=== PATIENT | male | born 1980 | race African-American/Black ===

== ENCOUNTER 2016-07-23 13:48 | Emergency (ER) | payer MEDICARE ==
[~2016-07-23] VITALS: Ht 188 cm; Wt 106.6 kg
[2016-07-23 14:35] LABS: BASO # 0.1 x10^3/uL (0.0-0.2); BASO % 1 % (0-3); EOS % 1 % (0-3); HEMATOCRIT 42.3 % (39.0-53.0); HEMOGLOBIN 14.4 g/dL (13.0-17.5); LYMPH # 1.6 x10^3/uL (1.0-4.8); LYMPH % 15 % (24-48); MEAN CORPUSCULAR HEMOGLOBIN 33 pg (25-35); MEAN CORPUSCULAR HGB CONC 34 g/dL (31-37); MEAN CORPUSCULAR VOLUME 95 fL (79-100); MONO % 4 % (0-9); NEUT % 80 % (31-73); PLATELET COUNT 284 x10^3/uL (140-400); RED BLOOD COUNT 4.44 x10^6/uL (4.30-5.70); WHITE BLOOD COUNT 10.7 x10^3/uL (4.0-11.0)
[2016-07-23 15:04] LABS: CALCIUM 8.9 mg/dL (8.5-10.1); CREATININE 0.8 mg/dL (0.7-1.3); GFR 130.9; POTASSIUM 3.7 mmol/L (3.5-5.1)
[2016-07-23] MEDS ORDERED: ASPI325T8 PO (15:28)
[2016-07-23] MEDS ORDERED: NITROGLYCERIN SUBLINGUAL 0.4 MG BOTTLE OF 25. SL PRN (15:30)
[2016-07-23] MEDS ORDERED: ASPIRIN CHEWABLE 81 MG TABLET. PO ONE (15:30)
[2016-07-23] MEDS ORDERED: MORPHINE SULFATE 2 MG/ML DISP.SYRIN. IV PRN (15:30)
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
[2016-07-23] MEDS ORDERED: ASPIRIN 325 MG TABLET ONE (16:35)
[2016-07-23 16:40] VITALS: BP 195/99
--- NOTE | 2016-07-24 06:20 | EKG ---
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
[2016-07-24] MEDS ORDERED: METF500T4 PO (12:14)
== END 2016-07-23 16:58 | disposition left against medical advice (07) ==
LOC: ER 13:48
DX: R74.8 Abnormal levels of other serum enzymes (principal); R07.89 Other chest pain; E11.9 Type 2 diabetes mellitus without complications; I10 Essential (primary) hypertension; E78.5 Hyperlipidemia, unspecified; Z88.0 Allergy status to penicillin; Z98.890 Other specified postprocedural states; Z88.6 Allergy status to analgesic agent; Z87.891 Personal history of nicotine dependence
CPT/HCPCS: 36415; 71020; 80048; 84484; 85027; 93005; 96372; 96374; 99285; J1650; J2270

== ENCOUNTER 2016-07-24 10:28 | Inpatient (IN) | payer MEDICARE ==
[~2016-07-24] VITALS: Ht 188 cm; Wt 99.3 kg
[~2016-07-24 10:28] MED LIST: ASPI325T4 PO
[2016-07-24] MEDS ORDERED: fentaNYL PF VIAL 100 MCG/2 ML VIAL IV PRN (10:45)
[2016-07-24 10:46] LABS: BASO # 0.1 x10^3/uL (0.0-0.2); BASO % 1 % (0-3); EOS % 1 % (0-3); HEMATOCRIT 40.8 % (39.0-53.0); HEMOGLOBIN 14.2 g/dL (13.0-17.5); LYMPH # 2.4 x10^3/uL (1.0-4.8); LYMPH % 27 % (24-48); MEAN CORPUSCULAR HEMOGLOBIN 33 pg (25-35); MEAN CORPUSCULAR HGB CONC 35 g/dL (31-37); MEAN CORPUSCULAR VOLUME 94 fL (79-100); MONO % 5 % (0-9); NEUT % 66 % (31-73); PLATELET COUNT 302 x10^3/uL (140-400); RED BLOOD COUNT 4.35 x10^6/uL (4.30-5.70); WHITE BLOOD COUNT 8.9 x10^3/uL (4.0-11.0)
[2016-07-24 10:56] LABS: CALCIUM 8.6 mg/dL (8.5-10.1); CREATININE 0.9 mg/dL (0.7-1.3); GFR 114.3; MAGNESIUM 1.6 mg/dL (1.8-2.4); POTASSIUM 3.7 mmol/L (3.5-5.1)
[2016-07-24] MEDS ORDERED: LIDO:MAALOX:DONNATAL 1:1:1 15 ML SINGLE DOSE SWSW ONE (11:00)
[2016-07-24] MEDS ORDERED: ASPIRIN 325 MG TABLET PO ONE (11:00)
[2016-07-24] MEDS ORDERED: MAGNESIUM SULFATE 1GM 100 ML IV ONE (11:30)
[2016-07-24] MEDS ORDERED: NITROGLYCERIN SUBLINGUAL 0.4 MG BOTTLE OF 25. SL PRN (11:45)
[2016-07-24] MEDS ORDERED: ONDANSETRON PF 4 MG/2 ML VIAL. IV PRN (11:45)
[2016-07-24] MEDS ORDERED: ACETAMINOPHEN 325 MG TABLET. PO PRN (11:45)
--- NOTE | 2016-07-24 11:51 | EKG ---
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
--- NOTE | 2016-07-24 11:57 | ACF ---
Admission Forms Criteria CHEST PAIN Clinical Indications for Admission to Inpatient Care (Place 'X' for any and all applicable criteria): Admission is indicated for chest pain and ANY ONE of the following(1)(2)(3)(4)(5 ): [ ]I. Angina with acute coronary syndrome (Also use Myocardial Infarction or Angina guideline) [ ]II. Hemodynamic instability [ ]III. Angina needing acute intervention as indicated by ALL of the following( 11)(12): [ ]a) Unstable angina is present as indicated by angina that is ANY ONE of the following: [ ]i) New onset [ ]ii) Nocturnal [ ]iii) Prolonged at rest [ ]iv) Progressive [ ]b) Angina warrants acute intervention as indicated by ANY ONE of the following: [ ]i) Recurrent angina (e.g, not responding as previously to treatment) [ ]ii) Angina at rest or with low-level activities despite initial medical therapy [ ]iii) New or presumably new ST-segment depression on ECG [ ]iv) Signs or symptoms of heart failure (eg, dyspnea, pulmonary edema) [ ]v) New or worsening mitral regurgitation [ ]vi) Hemodynamic instability [ ]vii) Dangerous arrhythmia (eg, sustained ventricular tachycardia) [ ]viii) History of percutaneous coronary intervention within 6 months [ ]ix) History of coronary artery bypass graft surgery [ ]x) DIYA risk score of 2 or greater[A] [ ]xi) History of Diabetes(14) [ ]xii) High-risk cardiac ischemia findings on noninvasive testing (e.g, echocardiogram, treadmill testing, nuclear scan) [ ]xiii) Chronic renal insufficiency (ie, estimated GFR less than 60 mL/min/1.732m) [ ]xiv) Left ventricular ejection fraction less than 40% [ ]IV. Evidence of FL (eg, cardiac biomarkers positive, ST-segment elevation on ECG) also use Myocardial Infarction Criteria Form. [ ]V. Pulmonary edema [ ]. Respiratory distress [ ]VII. Chest pain indicative of serious diagnosis other than coronary artery disease (eg, aortic dissection) [X]VIII. Contraindications and/or Inappropriate clinical situations for Observational Care in patients with Chest Pain, when ANY ONE of the following is required: [ ]a) Patient with risk factor for pulmonary embolism, acute coronary syndrome and myocardial infarction (18) [ ]b) Patient with Pulmonary embolism require an average LOS of 4.3 days, therefore emergency department observation management is inappropriate 18,23 [ ]c) Painful condition/s in the elderly, have the highest rate of recidivism after emergency department observation management (10.8%) 20,21,22 [X]d) Elevated cardiac biomarker requires intensive and exhaustive care (19) [ ]IX. General contraindications and/or Inappropriate clinical situations for Observational Care in patients with Chest Pain, when ANY ONE of the following is required: [ ]a) Prediction of prolongation of LOS based on ANY ONE of the following may be considered as a contraindication for observational care 2, 3, 4, 5, 6, 7, 8, 9, 10, 11 [ ]i) Age > 65 yrs. [ ]ii) Patient arriving by ambulance [ ]iii) Patient with high acuity [ ]iv) Patient requiring vital sign monitoring [ ]v) Patient on IV medication [ ]b) Systolic blood pressures 180mmHg 3,12 [ ]c) Patient with altered mental status including delirium and other alteration of consciousness, (3) [ ]d) Patient whose discharge disposition will be to a halfway home or rehabilitation home should not be managed in Emergency Department Observation Unit. CMS rule requires 3 days hospital stay before such placement. 3,13 [ ]e) Patient with failure to thrive due to broad array of etiologies 3,16,17 [ ]f) Inability to ambulate 3,14 Extended stay beyond goal length of stay may be needed for (1)(28): [ ]a) Specific condition diagnosed after evaluation (eg, pulmonary embolism, aortic dissection) [ ]b) Unstable angina [ ]c) Continued suspicion of acute coronary syndrome with inability to complete needed cardiac evaluation (eg, patient clinically unable to undergo stress testing) [ ]d) Myocardial infarction (Contents from ANGINA and CHEST PAIN clinical indications for admission to inpatient care have been integrated in this form) The original [facility] content created by [employer] has been revised. The portions of the content which have been revised are identified through the use of italic text or in bold, and [facility] has neither reviewed nor approved the modified material. All other unmodified content is copyright [facility]. Please see references footnoted in the original [facility] edition 2016 Admission Criteria Met?: Yes BRAYDEN BAILEY Jul 24, 2016 11:57
[2016-07-24 12:05] VITALS: BP 129/71
[2016-07-24] MEDS ORDERED: METF500T4 PO (12:14)
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
--- NOTE | 2016-07-24 15:21 | CARD ---
APPROVED REPORT EXAM: Two-dimensional and M-mode echocardiogram with Doppler and color Doppler. Other Information Quality : Average Rhythm : NSR INDICATION Hypertension/HCVD Chest Pain 2D DIMENSIONS RVDd3.2 (2.9-3.5cm)Left Atrium(2D)3.5 (1.6-4.0cm) IVSd0.9 (0.7-1.1cm)Aortic Root(2D)2.6 (2.0-3.7cm) LVDd6.3 (3.9-5.9cm)LVOT Diameter2.3 (1.8-2.4cm) PWd0.9 (0.7-1.1cm)LVDs4.1 (2.5-4.0cm) FS (%) 32.8 %SV125.9 ml LVEF(%)60.0 (>50%) Aortic Valve AoV Peak Yvan.132.0cm/sAoV VTI28.0cm AO Peak GR.7.0mmHgLVOT Peak Yvan.82.5cm/s LVOT VTI 17.64cmAO Mean GR.4mmHg GERONIMO (VMAX)2.97jb3KDP (VTI)2.64cm2 Mitral Valve MV E Horlvymv70.7cm/sMV DECEL [id number] MV A Ygpimdpm35.6cm/sMV GNQ02pp E/A Ratio1.6MV A Bdmgfotl366mj MVA (PHT)3.55cm2 TDI E/Lateral E'6.7E/Medial E'11.8 Pulmonary Valve PV Peak Robaggqj371.3cm/sPV Peak Grad.7mmHg RVOT VTI26.6cm Tricuspid Valve TR P. Nvbszajb064lo/sRAP TMWQSKGL5dsSa TR Peak Gr.37wfEoMJNN99vgGr LEFT VENTRICLE The Left Ventricle is mildly dilated. There is normal left ventricular wall thickness. Left ventricle systolic function is low normal. The Ejection Fraction is 50-55%. There is normal LV segmental wall motion. The left ventricular diastolic function and filling is normal for age. There is no ventricula r septal defect visualized. RIGHT VENTRICLE The right ventricle is normal size. The right ventricular systolic function is normal. ATRIA The left atrium size is normal. The right atrium size is normal. The interatrial septum is intact wit h no evidence for an atrial septal defect or patent foramen ovale as noted on 2-D or Doppler imaging. AORTIC VALVE The aortic valve is normal in structure and function. The aortic valve is trileaflet. Doppler and Col or Flow revealed no significant aortic regurgitation. There is no significant aortic valvular stenosi s. MITRAL VALVE The mitral valve is normal in structure and function. There is no mitral valve stenosis. Doppler and Color Flow revealed no mitral valve regurgitation noted. TRICUSPID VALVE The tricuspid valve is normal in structure and function. Doppler and Color Flow revealed trace tricus pid regurgitation. The PA pressure was estimated at 26 mmHg. There is no tricuspid valve stenosis. PULMONIC VALVE The pulmonic valve is not well visualized. Doppler and Color Flow revealed no pulmonic valvular regur gitation. There is no pulmonic valvular stenosis. GREAT VESSELS The aortic root is normal in size. Normal pulmonary venous flow (Doppler). The IVC is normal in size and collapses >50% with inspiration. PERICARDIAL EFFUSION There is no evidence of significant pericardial effusion. Critical Notification Critical Value: No <Conclusion> Left ventricle systolic function is low normal. The Ejection Fraction is 50-55%. There is normal LV segmental wall motion.
[2016-07-24 16:41] LABS: BARBITURATES NEG (NEG); BENZODIAZEPINES NEG (NEG); CANNABINOIDS POS (NEG); COCAINE NEG (NEG); METHADONE NEG (NEG); OPIATES POS (NEG); PHENCYCLIDINE NEG (NEG)
[2016-07-24] MEDS: fentaNYL PF VIAL 100 MCG/2 ML VIAL IV PRN ×2 (16:47→21:33)
[2016-07-24 19:00] VITALS: BP 127/84
[2016-07-24 23:06] VITALS: BP 163/90
[2016-07-25 02:26] VITALS: BP 136/71
[2016-07-25] MEDS: fentaNYL PF VIAL 100 MCG/2 ML VIAL IV PRN ×3 (04:33→08:46)
[2016-07-25 05:14] LABS: CHOLESTEROL/HDL RATIO 5.5
[2016-07-25 07:00] VITALS: BP 153/83
[2016-07-25] MEDS ORDERED: REGADENOSON 0.4 MG/5 ML DISP.SYRIN. IV ONE (08:45)
[2016-07-25] MEDS ORDERED: LIDO:MAALOX:DONNATAL 1:1:1 15 ML SINGLE DOSE SWSW ONE (12:15)
[2016-07-25] MEDS: oxyCODONE/APAP 5/325 1 TAB TABLET PO PRN ×2 (12:15→13:26)
--- NOTE | 2016-07-25 12:25 | PDOC ---
CARDIO Progress Notes Date and Time Date of Service 07/25/2016 Time of Evaluation 1220 Subjective Subjective: No Chest Pain, No shortness of breath, No Palpitations, No Dizziness, Other (abdominal pain) Vitals Vitals Vital Signs Date Time Temp Pulse Resp B/P (MAP) Pulse Ox O2 Delivery O2 Flow Rate FiO2 07/25/16 12:15 96 Room Air 07/25/16 07:00 97.5 63 17 153/83 (106) 97.5 Weight Weight [ ] Input and Output Intake and Output Intake and Output 07/25/16 07:00 Intake Total 680 ml Output Total 800 ml Balance -120 ml Intake Oral 680 ml Output Urine Total 800 ml Laboratory Labs Laboratory Tests Test 07/24/16 16:00 07/24/16 16:45 07/24/16 17:16 07/24/16 20:36 Urine Opiates Screen Pos (NEG) Urine Methadone Screen Neg (NEG) Urine Barbiturates Neg (NEG) Urine Phencyclidine Screen Neg (NEG) Urine Amphetamine/Methamphetamine Neg (NEG) Urine Benzodiazepines Screen Neg (NEG) Urine Cocaine Screen Neg (NEG) Urine Cannabinoids Screen Pos (NEG) Urine Ethyl Alcohol Neg (NEG) Troponin I Quantitative 0.077 ng/mL (0.000-0.055) Glucose (Fingerstick) 150 mg/dL (70-99) 210 mg/dL (70-99) Test 07/24/16 22:45 07/25/16 04:00 07/25/16 07:41 07/25/16 12:01 Troponin I Quantitative 0.082 ng/mL (0.000-0.055) Triglycerides Level 98 mg/dL (0-150) Cholesterol Level 177 mg/dL (0-200) LDL Cholesterol, Calculated 125 mg/dL (0-100) VLDL Cholesterol, Calculated 20 mg/dL (0-40) Non-HDL Cholesterol Calculated 145 mg/dL (0-129) HDL Cholesterol 32 mg/dL (40-60) Cholesterol/HDL Ratio 5.5 Glucose (Fingerstick) 162 mg/dL (70-99) 200 mg/dL (70-99) Physical Exam HEENT: Neck Supple W Full Motion Chest: Symmetric LUNGS: Clear to Auscultation Heart: S1S2, RRR Extremities: No Edema Neurology: alert, oriented, follow commands Diagnostic Tests Echocardiogram: Normal LVEF Assessment Assessment 1. chest pain somewhat atypical in presentation - starts suprapubic and moves upward EKG and troponin levels not consistent with ACS MPI in progress - if non-ischemic, may discharge suspect GI etiology 2. HTN labile consider low dose ACEI as also DM 3. DM, II, poorly controlled per primary service 4. tobacco abuse 5. HLD LDLs = 125 recommend dietary changes and improved control of DM repeat FLP in 3 - 6 months and consider statin therapy Plan Plan ADDENDUM @ 1443: ABNORMAL MPI DISCUSSED WITH PATIENT AND PRIMARY INVESTMENT SPECIALIST WHO RECOMMENDED CARDIAC CATH IN A.M. 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
--- NOTE | 2016-07-25 12:54 | PDOC ---
PROGRESS NOTES Chief Complaint Chief Complaint 1. Epigastric pain 2. HTN taken off meds due to lightheadedness monitor 3. DM, II, poorly controlled 4. tobacco abuse - 0.5 ppday 5. hypomagnesemia History of Present Illness History of Present Illness It is actually infraumbilical pain then motions movement upwards to epigastric area, describing as burning sensation Hx PUD in family Pt does smoke, denies etoh Cards is doing and echo and mPI PEr family at bedside, he has been having this for the longest time, last time was here not too long ago, left AMA Pt curling up a bit after eating lunch, fentanyl not helping pain I did order GI cocktail x 1 and claims no resolve ALready on PPI oral PLAN: COnsulT GI Tums tID COnt PPI I did order GI cocktail Dw family and RN Echo and mPI per cards Vitals Vitals Vital Signs Date Time Temp Pulse Resp B/P (MAP) Pulse Ox O2 Delivery O2 Flow Rate FiO2 07/25/16 12:15 96 Room Air 07/25/16 07:00 97.5 63 17 153/83 (106) 97.5 Physical Exam General: Alert, Oriented X3, Cooperative, No acute distress Heart: Regular rate, Normal S1, Normal S2, No murmurs, Other (no carotid bruits ; Tele: SR) Abdomen: Normal bowel sounds, Soft Extremities: No edema, Normal pulses Skin: No rashes Labs LABS Laboratory Tests Test 07/24/16 16:00 07/24/16 16:45 07/24/16 17:16 07/24/16 20:36 Urine Opiates Screen Pos (NEG) Urine Methadone Screen Neg (NEG) Urine Barbiturates Neg (NEG) Urine Phencyclidine Screen Neg (NEG) Urine Amphetamine/Methamphetamine Neg (NEG) Urine Benzodiazepines Screen Neg (NEG) Urine Cocaine Screen Neg (NEG) Urine Cannabinoids Screen Pos (NEG) Urine Ethyl Alcohol Neg (NEG) Troponin I Quantitative 0.077 ng/mL (0.000-0.055) Glucose (Fingerstick) 150 mg/dL (70-99) 210 mg/dL (70-99) Test 07/24/16 22:45 07/25/16 04:00 07/25/16 07:41 07/25/16 12:01 Troponin I Quantitative 0.082 ng/mL (0.000-0.055) Triglycerides Level 98 mg/dL (0-150) Cholesterol Level 177 mg/dL (0-200) LDL Cholesterol, Calculated 125 mg/dL (0-100) VLDL Cholesterol, Calculated 20 mg/dL (0-40) Non-HDL Cholesterol Calculated 145 mg/dL (0-129) HDL Cholesterol 32 mg/dL (40-60) Cholesterol/HDL Ratio 5.5 Glucose (Fingerstick) 162 mg/dL (70-99) 200 mg/dL (70-99) Review of Systems Review of Systems abd pain, no emeiss, no n.v.d, no cp Assessment and Plan Assessmemt and Plan Problems Medical Problems: (1) Elevated troponin Status: Acute Problems: Comment Review of Relevant I have reviewed the following items shelli (where applicable) has been applied. Labs Laboratory Tests Test 07/24/16 10:40 07/24/16 16:00 07/24/16 16:45 07/24/16 17:16 White Blood Count 8.9 x10^3/uL (4.0-11.0) Red Blood Count 4.35 x10^6/uL (4.30-5.70) Hemoglobin 14.2 g/dL (13.0-17.5) Hematocrit 40.8 % (39.0-53.0) Mean Corpuscular Volume 94 fL (79-100) Mean Corpuscular Hemoglobin 33 pg (25-35) Mean Corpuscular Hemoglobin Concent 35 g/dL (31-37) Red Cell Distribution Width 14.0 % (11.5-14.5) Platelet Count 302 x10^3/uL (140-400) Neutrophils (%) (Auto) 66 % (31-73) Lymphocytes (%) (Auto) 27 % (24-48) Monocytes (%) (Auto) 5 % (0-9) Eosinophils (%) (Auto) 1 % (0-3) Basophils (%) (Auto) 1 % (0-3) Neutrophils # (Auto) 5.9 x10^3uL (1.8-7.7) Lymphocytes # (Auto) 2.4 x10^3/uL (1.0-4.8) Monocytes # (Auto) 0.5 x10^3/uL (0.0-1.1) Eosinophils # (Auto) 0.1 x10^3/uL (0.0-0.7) Basophils # (Auto) 0.1 x10^3/uL (0.0-0.2) Sodium Level 138 mmol/L (136-145) Potassium Level 3.7 mmol/L (3.5-5.1) Chloride Level 104 mmol/L (98-107) Carbon Dioxide Level 29 mmol/L (21-32) Anion Gap 5 (6-14) Blood Urea Nitrogen 6 mg/dL (8-26) Creatinine 0.9 mg/dL (0.7-1.3) Estimated GFR (Cockcroft-Gault) 114.3 Glucose Level 265 mg/dL (70-99) Calcium Level 8.6 mg/dL (8.5-10.1) Magnesium Level 1.6 mg/dL (1.8-2.4) Troponin I Quantitative 0.084 ng/mL (0.000-0.055) 0.077 ng/mL (0.000-0.055) GP-Nwy-E-Type Natriuretic Peptide 86 pg/mL (0-124) Thyroid Stimulating Hormone (TSH) 0.369 uIU/mL (0.358-3.74) Urine Opiates Screen Pos (NEG) Urine Methadone Screen Neg (NEG) Urine Barbiturates Neg (NEG) Urine Phencyclidine Screen Neg (NEG) Urine Amphetamine/Methamphetamine Neg (NEG) Urine Benzodiazepines Screen Neg (NEG) Urine Cocaine Screen Neg (NEG) Urine Cannabinoids Screen Pos (NEG) Urine Ethyl Alcohol Neg (NEG) Glucose (Fingerstick) 150 mg/dL (70-99) Test 07/24/16 20:36 07/24/16 22:45 07/25/16 04:00 07/25/16 07:41 Glucose (Fingerstick) 210 mg/dL (70-99) 162 mg/dL (70-99) Troponin I Quantitative 0.082 ng/mL (0.000-0.055) Triglycerides Level 98 mg/dL (0-150) Cholesterol Level 177 mg/dL (0-200) LDL Cholesterol, Calculated 125 mg/dL (0-100) VLDL Cholesterol, Calculated 20 mg/dL (0-40) Non-HDL Cholesterol Calculated 145 mg/dL (0-129) HDL Cholesterol 32 mg/dL (40-60) Cholesterol/HDL Ratio 5.5 Test 07/25/16 12:01 Glucose (Fingerstick) 200 mg/dL (70-99) Laboratory Tests Test 07/24/16 16:00 07/24/16 16:45 07/24/16 17:16 07/24/16 20:36 Urine Opiates Screen Pos (NEG) Urine Methadone Screen Neg (NEG) Urine Barbiturates Neg (NEG) Urine Phencyclidine Screen Neg (NEG) Urine Amphetamine/Methamphetamine Neg (NEG) Urine Benzodiazepines Screen Neg (NEG) Urine Cocaine Screen Neg (NEG) Urine Cannabinoids Screen Pos (NEG) Urine Ethyl Alcohol Neg (NEG) Troponin I Quantitative 0.077 ng/mL (0.000-0.055) Glucose (Fingerstick) 150 mg/dL (70-99) 210 mg/dL (70-99) Test 07/24/16 22:45 07/25/16 04:00 07/25/16 07:41 07/25/16 12:01 Troponin I Quantitative 0.082 ng/mL (0.000-0.055) Triglycerides Level 98 mg/dL (0-150) Cholesterol Level 177 mg/dL (0-200) LDL Cholesterol, Calculated 125 mg/dL (0-100) VLDL Cholesterol, Calculated 20 mg/dL (0-40) Non-HDL Cholesterol Calculated 145 mg/dL (0-129) HDL Cholesterol 32 mg/dL (40-60) Cholesterol/HDL Ratio 5.5 Glucose (Fingerstick) 162 mg/dL (70-99) 200 mg/dL (70-99) Medications Current Medications Fentanyl Citrate (Fentanyl 2ml Vial) 50 mcg PRN Q15MIN PRN IV pain for 3 doses Last administered on 07/24/16 11:11; Start 07/24/16 at 10:45 Aspirin (Brittny Aspirin) 325 mg 1X ONCE PO Last administered on 07/24/16 11:10 ; Start 07/24/16 at 11:00; Stop 07/24/16 at 11:01; Status DC Multi-Ingredient Mouthwash/Gargle (Gi Cocktail Single Dose) 15 ml 1X ONCE SWSW Last administered on 07/24/16 11:10; Start 07/24/16 at 11:00; Stop 07/24/16 at 11:01; Status DC Enoxaparin Sodium (Lovenox 100mg Syringe) 100 mg 1X ONCE SQ Last administered on 07/24/16 11:30; Start 07/24/16 at 11:15; Stop 07/24/16 at 11:16; Status DC Magnesium Sulfate/ Dextrose 100 ml @ 100 mls/hr 1X ONCE IV Last administered on 07/24/16 11:30; Start 07/24/16 at 11:30; Stop 07/24/16 at 12:29; Status DC Ondansetron HCl (Zofran) 4 mg PRN Q8HRS PRN IV NAUSEA/VOMITING; Start 07/24/16 at 11:45; Stop 07/25/16 at 11:44; Status DC Fentanyl Citrate (Fentanyl 2ml Vial) 50 mcg PRN Q2HR PRN IV PAIN Last administered on 07/25/16 08:46; Start 07/24/16 at 11:45; Stop 07/25/16 at 11:44; Status DC Acetaminophen (Tylenol) 650 mg PRN Q4HRS PRN PO FEVER; Start 07/24/16 at 11:45; Stop 07/25/16 at 11:44; Status DC Nitroglycerin (Nitrostat) 0.4 mg PRN Q5MIN PRN SL CHEST PAIN; Start 07/24/16 at 11:45; Stop 07/25/16 at 11:44; Status DC Regadenoson (Lexiscan) 0.4 mg 1X ONCE IV Last administered on 07/25/16 09:54; Start 07/25/16 at 08:45; Stop 07/25/16 at 08:47; Status DC Oxycodone/ Acetaminophen (Percocet 5/325) 1 tab PRN Q6HRS PRN PO PAIN Last administered on 07/25/16 12:15; Start 07/25/16 at 12:15 Multi-Ingredient Mouthwash/Gargle (Gi Cocktail Single Dose) 15 ml 1X ONCE SWSW Last administered on 07/25/16 12:14; Start 07/25/16 at 12:15; Stop 07/25/16 at 12:16; Status DC Pantoprazole Sodium (Protonix) 40 mg DAILYAC PO Last administered on 07/25/16 12:15; Start 07/25/16 at 13:00 Active Scripts Active Reported Metformin Hcl 500 Mg Tablet 500 Mg PO BIDWMEALS Vitals/I & O Vital Sign - Last 24 Hours 07/24/16 07/24/16 07/24/16 07/24/16 16:47 19:00 20:00 21:33 Temp 98.0 98.0 Pulse 87 Resp 18 B/P (MAP) 127/84 (98) Pulse Ox 97 96 O2 Delivery Room Air Room Air Room Air Room Air 07/24/16 07/25/16 07/25/16 07/25/16 23:06 02:26 04:33 06:31 Temp 98.1 98.0 98.1 98.0 Pulse 60 50 Resp 20 17 B/P (MAP) 163/90 (114) 136/71 (92) Pulse Ox 96 96 96 96 O2 Delivery Room Air Room Air Room Air Room Air 07/25/16 07/25/16 07/25/16 07/25/16 07:00 07:01 08:00 08:46 Temp 97.5 97.5 Pulse 63 Resp 17 B/P (MAP) 153/83 (106) Pulse Ox 99 96 O2 Delivery Room Air Room Air Room Air 07/25/16 07/25/16 09:16 12:15 Pulse Ox 96 O2 Delivery Room Air Room Air Intake and Output 07/24/16 07/24/16 07/25/16 15:00 23:00 07:00 Intake Total 240 ml 240 ml 200 ml Output Total 300 ml 500 ml Balance 240 ml -60 ml -300 ml HOMER GALLO MD Jul 25, 2016 12:54
[2016-07-25] MEDS ORDERED: CALCIUM CARBONATE 500 MG TAB.CHEW PO PRN (13:00)
[2016-07-25] MEDS ORDERED: fentaNYL PF VIAL 100 MCG/2 ML VIAL IV PRN (13:00)
[2016-07-25] MEDS ORDERED: PANTOPRAZOLE 40 MG TABLET.DR. PO SCH (13:00)
[2016-07-25] MEDS ORDERED: ONDANSETRON PF 4 MG/2 ML VIAL. IV PRN (13:00)
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
--- NOTE | 2016-07-25 14:13 | RAD ---
APPROVED REPORT Test Type: Pharmacological Stress Nurse/Tech: Lorie Carter R.N. Test Indications: chest pain Cardiac History: Hypertension, High cholesterol, Diabetes Medications: See Electronic Medical Record Medical History: See Electronic Medical Record Resting ECG: S. katherine Resting Heart Rate: 54 bpm Resting Blood Pressure: 174/92mmHg Pretest Chest Pain: No chest pain Nurse/Tech Notes S1S2, lungs sound clear Consent: The procedure was explained to the patient in lay terms. Informed consent was witnessed. Toy eout was entered into Nitro. History and Stress Test performed by Lorie Carter R.N. Pharm. Details Pharmacologic stress testing was performed using 0.4mg per 5ml of regadenoson given intravenously ove r 7-10 seconds. Stress Symptoms Dyspnea POST EXERCISE Reason for Termination: Infusion complete Max HR: 108 bpm Max Blood Pressure: 158/74mmHg Blood Pressure response to exercise: Normal blood pressure response during stress. Chest Pain: No. Arrhythmia: No. ST Change: No. INTERPRETATION Stress EKG Conclusion: Baseline EKG showed sinus rhythm. No ischemic changes at peak stress. No arr hythmias. Imaging Protocol IMAGE PROTOCOL: Rest Tc-99m/stress Tc-99m 1 day Rest: Stress: Viability: Radiopharm.Tc99m FhguvehosTa85w Sestamibi Pfko27fNa 32mCi Img Date 07/25/2016 07/25/2016 Inj-Img Dyia95fsl. 60min. Rest Admin Site:IV - Left AntecubitalAdministrator:DHARMESH Pereira, ARRT (R)(N) Stress Admin Site: IV - Left AntecubitalAdministrator: Bacilio Rollins, RT (R)(N) STRESS DATA End Diast. Vol.228.0mlAv. Heart Rate58.0bpm End Syst. Vol.137.0mlCO Index BSA0.0L/min Myocardial Etdx317.0gEject. Atsedjpn02.0% Stress Rates Pk. Fill Rate1.49EDV/secLVtime Pk. Fill 147.98msec Pk. Empty Rate2.02ESV/secLVtime Pk. Uzkrl411.34msec 1/3 Pk. Fill1.01EDV/sec Stress Scores Regional WT1.00Summed WT15.00 Regional WM0.00Summed WM9.00 LV Perfusion Scintigraphic images showed small reversible defect involving the inferoapical wall consistent with i schemia. Wall Motion Mild to moderate global left ventricle systolic dysfunction with ejection fraction calculated at 40%. LV Perf. Quant 17 Seg. SSS4.00 17 Seg. SRS1.00 17 Seg. SDS4.00 Stress Defect Extent (% LAD)1.90Rest Defect Extent (% LAD)6.30Rev. Defect Extent (% LAD)1.90 Stress Defect Extent (% LCX) 0.00Rest Defect Extent (% LCX)0.00Rev. Defect Extent (% LCX)0.00 Stress Defect Extent (% RCA)22.20Rest Defect Extent (% RCA)0.00Rev. Defect Extent (% RCA)15.60 Stress Defect Extent (% DANUTA)7.20Rest Defect Extent (% DANUTA)2.20Rev. Defect Extent (% DANUTA)5.70 Conclusion 1. Regadenoson cardioisotope stress test showed small amount of inferoapical wall ischemia. 2. Mild to moderate global left ventricle systolic dysfunction with ejection fraction calculated at 4 0%. 3. Intermediate risk for cardiac events.
[2016-07-25] MEDS ORDERED: METOPROLOL SUCC 24HR ER 25 MG TAB.ER.24H. PO SCH (15:00)
[2016-07-25] MEDS ORDERED: ASPIRIN CHEWABLE 81 MG TABLET. PO SCH (15:00)
[2016-07-25 15:07] VITALS: BP 151/84
[2016-07-25] MEDS ORDERED: ATORVASTATIN CALCIUM 40 MG TABLET. PO SCH (21:00)
== END 2016-07-25 16:40 | disposition left against medical advice (07) | DRG 392 ==
LOC: ER 10:28 → 2 SOUTH 11:15
PROVIDERS: ADMIT Internal Medicine; ATTEND Internal Medicine
DX: K21.9 Gastro-esophageal reflux disease without esophagitis (principal); E78.00 Pure hypercholesterolemia, unspecified; E78.5 Hyperlipidemia, unspecified; F17.210 Nicotine dependence, cigarettes, uncomplicated; I10 Essential (primary) hypertension; R07.2 Precordial pain; E83.42 Hypomagnesemia; Z53.21 Procedure and treatment not carried out due to patient leaving prior to being seen by health care provider; E11.65 Type 2 diabetes mellitus with hyperglycemia; Z82.49 Family history of ischemic heart disease and other diseases of the circulatory system; Z91.19 Patient's noncompliance with other medical treatment and regimen; Z88.0 Allergy status to penicillin; Z88.6 Allergy status to analgesic agent; Z79.899 Other long term (current) drug therapy; Z71.6 Tobacco abuse counseling
CPT/HCPCS: 36415; 78452; 80048; 80061; 82962; 83735; 83880; 84443; 84484; 85027; 93005; 93017; 93306; 96372; 96374; 96375; 96376; A9500; G0481; J1650; J2785; J3010; J3475; 99285-25

== ENCOUNTER 2016-08-07 23:06 | Emergency (ER) | payer MEDICARE ==
[~2016-08-07] VITALS: Ht 182.9 cm; Wt 108.9 kg
[~2016-08-07 23:06] MED LIST changes: -ASPI325T4 PO; +ASPI325T8 PO; +METF500T4 PO
[2016-08-07 23:21] VITALS: BP 155/92
[2016-08-07 23:42] LABS: BASO # 0.1 x10^3/uL (0.0-0.2); BASO % 1 % (0-3); EOS % 2 % (0-3); HEMATOCRIT 43.2 % (39.0-53.0); HEMOGLOBIN 14.6 g/dL (13.0-17.5); LYMPH # 3.1 x10^3/uL (1.0-4.8); LYMPH % 32 % (24-48); MEAN CORPUSCULAR HEMOGLOBIN 33 pg (25-35); MEAN CORPUSCULAR HGB CONC 34 g/dL (31-37); MEAN CORPUSCULAR VOLUME 96 fL (79-100); MONO % 8 % (0-9); NEUT % 57 % (31-73); PLATELET COUNT 291 x10^3/uL (140-400); RED BLOOD COUNT 4.51 x10^6/uL (4.30-5.70); RED CELL DISTRIBUTION WIDTH 13.7 % (11.5-14.5); WHITE BLOOD COUNT 9.6 x10^3/uL (4.0-11.0)
[2016-08-07 23:53] LABS: CALCIUM 8.6 mg/dL (8.5-10.1); CREATININE 0.9 mg/dL (0.7-1.3); GFR 114.3; POTASSIUM 3.7 mmol/L (3.5-5.1)
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
[2016-08-07 23:59] LABS: ALBUMIN 2.6 g/dL (3.4-5.0); ALBUMIN/GLOBULIN RATIO 0.6 (1.0-1.7); TOTAL BILIRUBIN 0.4 mg/dL (0.2-1.0); TOTAL PROTEIN 7.1 g/dL (6.4-8.2)
[2016-08-08] MEDS ORDERED: DICYCLOMINE 20 MG/2 ML AMPUL. IM ONE (00:15)
[2016-08-08] MEDS ORDERED: PANTOPRAZOLE IV PUSH 40 MG VIAL. IVP ONE (00:15)
[2016-08-08] MEDS ORDERED: IOHEXOL 300 MG/ML 75 ML VIAL IV ONE (00:30)
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
[2016-08-08] MEDS ORDERED: DICY10CA53 PO (01:08)
[2016-08-08] MEDS ORDERED: PANT40TA3 PO (01:08)
--- NOTE | 2016-08-08 07:19 | EKG ---
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
== END 2016-08-08 01:13 | disposition home or self-care (01) ==
LOC: ER 23:06
DX: R10.84 Generalized abdominal pain (principal); R10.13 Epigastric pain; E11.9 Type 2 diabetes mellitus without complications; E78.00 Pure hypercholesterolemia, unspecified; I10 Essential (primary) hypertension; Z98.890 Other specified postprocedural states; Z88.0 Allergy status to penicillin; Z88.6 Allergy status to analgesic agent; Z87.891 Personal history of nicotine dependence
CPT/HCPCS: 36415; 74177; 80053; 84484; 85027; 93005; 96372; 96374; 99285; C9113; J0500; Q9967

== ENCOUNTER 2016-11-28 23:29 | Emergency (ER) | payer MEDICARE ==
[~2016-11-28] VITALS: Ht 188 cm; Wt 92.5 kg
[~2016-11-28 23:29] MED LIST changes: +DICY10CA53 PO; +PANT40TA3 PO
[2016-11-28 23:35] VITALS: BP 174/83
[2016-11-28] MEDS ORDERED: CLIN300C8 PO (23:54)
[2016-11-28] MEDS ORDERED: TRAM50TA PO (23:54)
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
[2016-11-29] MEDS ORDERED: traMADol 50 MG TABLET PO ONE
== END 2016-11-28 23:50 | disposition home or self-care (01) ==
LOC: ER 23:29
DX: K04.7 Periapical abscess without sinus (principal); E11.9 Type 2 diabetes mellitus without complications; E78.00 Pure hypercholesterolemia, unspecified; I10 Essential (primary) hypertension; Z88.0 Allergy status to penicillin; Z88.8 Allergy status to other drugs, medicaments and biological substances
CPT/HCPCS: 99283

== ENCOUNTER 2017-05-17 13:24 | Inpatient (IN) | payer MEDICARE ==
[2017-05-17 14:29] LABS: ADD MAN DIFF? NO
[2017-05-17] MEDS: IV NORMAL SALINE 1000ML BAG 1,000 ML IV ×2 (14:32→17:30)
[2017-05-17] MEDS: ONDANSETRON PF 4 MG/2 ML VIAL. IV (14:32)
[2017-05-17] MEDS: LIDO:MAALOX:DONNATAL 1:1:1 15 ML SINGLE DOSE SWSW (14:32)
[2017-05-17] MEDS: MORPHINE SULFATE 4 MG/ML DISP.SYRIN. IV/SQ ×4 (14:33→22:07)
[2017-05-17 14:35] LABS: BASO # 0.1 x10^3/uL (0.0-0.2); BASO % 1 % (0-3); EOS # 0.1 x10^3/uL (0.0-0.7); EOS % 1 % (0-3); HEMATOCRIT 45.3 % (39.0-53.0); HEMOGLOBIN 15.6 g/dL (13.0-17.5); LYMPH # 2.1 x10^3/uL (1.0-4.8); LYMPH % 20 % (24-48); MEAN CORPUSCULAR HEMOGLOBIN 33 pg (25-35); MEAN CORPUSCULAR HGB CONC 35 g/dL (31-37); MEAN CORPUSCULAR VOLUME 95 fL (79-100); MONO # 0.4 x10^3/uL (0.0-1.1); MONO % 4 % (0-9); NEUT # 7.8 x10^3uL (1.8-7.7); NEUT % 74 % (31-73); PLATELET COUNT 342 x10^3/uL (140-400); RED BLOOD COUNT 4.74 x10^6/uL (4.30-5.70); RED CELL DISTRIBUTION WIDTH 13.9 % (11.5-14.5); WHITE BLOOD COUNT 10.5 x10^3/uL (4.0-11.0)
[2017-05-17 14:38] LABS: BILIRUBIN,URINE SMALL (NEG); CLARITY,URINE CLEAR; COLOR,URINE AMBER; GLUCOSE,URINE 250 mg/dL (NEG); NITRITE,URINE NEGATIVE (NEG); PROTEIN,URINE >=300 mg/dL (NEG-TRACE); UROBILINOGEN,URINE 0.2 mg/dL (0.2 mg/dL)
[2017-05-17 14:48] LABS: ANION GAP 7 (6-14); BLOOD UREA NITROGEN 5 mg/dL (8-26); BUN/CREATININE RATIO 6 (6-20); CALCIUM 8.9 mg/dL (8.5-10.1); CARBON DIOXIDE 30 mmol/L (21-32); CHLORIDE 104 mmol/L (98-107); CREATININE 0.8 mg/dL (0.7-1.3); GFR 130.9; GLUCOSE 211 mg/dL (70-99); POTASSIUM 3.6 mmol/L (3.5-5.1); SODIUM 141 mmol/L (136-145)
[2017-05-17 14:54] LABS: ALBUMIN 2.6 g/dL (3.4-5.0); ALBUMIN/GLOBULIN RATIO 0.6 (1.0-1.7); ALK PHOS 85 U/L (46-116); ALT (SGPT) 16 U/L (16-63); AST (SGOT) 10 U/L (15-37); LIPASE 207 U/L (73-393); TOTAL BILIRUBIN 0.4 mg/dL (0.2-1.0); TOTAL PROTEIN 7.2 g/dL (6.4-8.2)
[2017-05-17 14:59] LABS: BACTERIA,URINE FEW /HPF (0-FEW); HYALINE CASTS, URINE MODERATE /HPF; WBC,URINE 20-40 /HPF (0-4)
[2017-05-17 15:02] LABS: TROPONINI 0.095 ng/mL (0.000-0.055)
[2017-05-17 15:26] LABS: PLT ESTIMATE ADEQUATE (ADEQUATE)
[2017-05-17] MEDS: IOHEXOL 300 MG/ML 100ML VIAL. IV (15:52)
[2017-05-17] MEDS ORDERED: ACETAMINOPHEN 325 MG TABLET. PO (17:15)
[2017-05-17] MEDS ORDERED: ONDANSETRON PF 4 MG/2 ML VIAL. IV (17:15)
[2017-05-17] MEDS: ASPIRIN 325 MG TABLET PO (18:40)
[2017-05-17 20:22] LABS: POC GLUCOSE 149 mg/dL (70-99)
[2017-05-17 23:08] LABS: TROPONINI 0.099 ng/mL (0.000-0.055)
[2017-05-18] MEDS: MORPHINE SULFATE 4 MG/ML DISP.SYRIN. IV ×12 (00:11→23:47)
[2017-05-18 01:19] LABS: TROPONINI 0.092 ng/mL (0.000-0.055)
[2017-05-18] MEDS: IV NORMAL SALINE 1000ML BAG 1,000 ML IV ×2 (01:30→09:30)
[2017-05-18 04:40] LABS: ADD MAN DIFF? NO
[2017-05-18 05:35] LABS: BASO # 0.1 x10^3/uL (0.0-0.2); BASO % 1 % (0-3); EOS # 0.1 x10^3/uL (0.0-0.7); EOS % 1 % (0-3); HEMATOCRIT 42.8 % (39.0-53.0); HEMOGLOBIN 14.1 g/dL (13.0-17.5); LYMPH # 3.2 x10^3/uL (1.0-4.8); LYMPH % 32 % (24-48); MEAN CORPUSCULAR HEMOGLOBIN 32 pg (25-35); MEAN CORPUSCULAR HGB CONC 33 g/dL (31-37); MEAN CORPUSCULAR VOLUME 97 fL (79-100); MONO # 0.5 x10^3/uL (0.0-1.1); MONO % 5 % (0-9); NEUT # 6.1 x10^3uL (1.8-7.7); NEUT % 61 % (31-73); PLATELET COUNT 283 x10^3/uL (140-400); RED BLOOD COUNT 4.42 x10^6/uL (4.30-5.70); RED CELL DISTRIBUTION WIDTH 14.5 % (11.5-14.5); WHITE BLOOD COUNT 9.9 x10^3/uL (4.0-11.0)
[2017-05-18 07:18] LABS: ANION GAP 4 (6-14); BLOOD UREA NITROGEN 5 mg/dL (8-26); CALCIUM 8.7 mg/dL (8.5-10.1); CARBON DIOXIDE 30 mmol/L (21-32); CHLORIDE 106 mmol/L (98-107); CREATININE 0.8 mg/dL (0.7-1.3); GFR 130.9; GLUCOSE 189 mg/dL (70-99); SODIUM 140 mmol/L (136-145)
[2017-05-18 08:12] LABS: POC GLUCOSE 164 mg/dL (70-99)
[2017-05-18 11:29] LABS: POC GLUCOSE 155 mg/dL (70-99)
[2017-05-18] MEDS: PREGABALIN 50 MG CAPSULE PO ×2 (16:44→21:53)
[2017-05-18] MEDS: LISINOPRIL 5 MG TABLET. PO (16:45)
[2017-05-18] MEDS: PANTOPRAZOLE 40 MG TABLET.DR. PO (16:45)
[2017-05-18] MEDS: metFORMIN 500 MG TABLET PO (16:45)
[2017-05-18 17:04] LABS: POC GLUCOSE 153 mg/dL (70-99)
[2017-05-18 21:12] LABS: POC GLUCOSE 177 mg/dL (70-99)
[2017-05-19] MEDS: MORPHINE SULFATE 4 MG/ML DISP.SYRIN. IV ×7 (02:40→22:45)
[2017-05-19] MEDS ORDERED: MORPHINE SULFATE 2 MG/ML DISP.SYRIN. IV (07:00)
[2017-05-19] MEDS ORDERED: fentaNYL PF VIAL 100 MCG/2 ML VIAL IV (07:00)
[2017-05-19] MEDS ORDERED: ONDANSETRON PF 4 MG/2 ML VIAL. IV ×2 (07:00→15:15)
[2017-05-19] MEDS ORDERED: LIDOCAINE 1% PF 2 ML VIAL. ID (07:00)
[2017-05-19] MEDS: PANTOPRAZOLE 40 MG TABLET.DR. PO (07:30)
[2017-05-19] MEDS: metFORMIN 500 MG TABLET PO ×2 (08:00→18:08)
[2017-05-19] MEDS ORDERED: ceFAZolin 2GM PREMIX 2 GM/50 ML BAG IV (08:00)
[2017-05-19 08:22] LABS: POC GLUCOSE 112 mg/dL (70-99)
[2017-05-19] MEDS: PREGABALIN 50 MG CAPSULE PO ×3 (08:49→20:44)
[2017-05-19] MEDS: LISINOPRIL 5 MG TABLET. PO (08:49)
[2017-05-19] MEDS ORDERED: SURGICEL HEMOSTAT 2X3 EACH. (11:48)
[2017-05-19 11:58] LABS: POC GLUCOSE 135 mg/dL (70-99)
[2017-05-19] MEDS: IV RINGERS,LACTATED 1000ML 1,000 ML IV ×2 (12:14→16:56)
[2017-05-19] MEDS ORDERED: PROPOFOL 0 ML IV (12:43)
[2017-05-19] MEDS ORDERED: LIDOCAINE 1% PF 5 ML VIAL. (12:43)
[2017-05-19] MEDS ORDERED: MIDAZOLAM HCL/PF 2 MG/2 ML VIAL. (12:43)
[2017-05-19] MEDS ORDERED: DEXAMETHASONE SOD PHOS 20 MG/5 ML VIAL. (12:43)
[2017-05-19] MEDS ORDERED: fentaNYL PF VIAL 100 MCG/2 ML VIAL (12:43)
[2017-05-19] MEDS ORDERED: ROCURONIUM 50 MG/5 ML VIAL. (12:44)
[2017-05-19] MEDS: BISACODYL 10 MG SUPP.RECT. (13:33)
[2017-05-19] MEDS: BUPIVACAINE-EPI 0.25%-1:200000 50 ML VIAL. (13:33)
[2017-05-19] MEDS: IOHEXOL 300 MG/ML 100ML VIAL. (13:33)
[2017-05-19] MEDS ORDERED: KETAMINE HCL 500 MG/10 ML VIAL. (13:42)
[2017-05-19] MEDS ORDERED: MORPHINE SULFATE 10 MG/ML VIAL. (14:18)
[2017-05-19] MEDS ORDERED: GLYCOPYRROLATE 1 MG/5 ML VIAL. (14:42)
[2017-05-19] MEDS ORDERED: SEVOFLURANE 61 TO 120 MINUTES. IH (14:53)
[2017-05-19] MEDS ORDERED: PROPOFOL 20 ML IV (14:54)
[2017-05-19] MEDS ORDERED: ONDANSETRON PF 4 MG/2 ML VIAL. (14:55)
[2017-05-19] MEDS ORDERED: MORPHINE SULFATE 4 MG/ML DISP.SYRIN. IV (15:15)
[2017-05-19] MEDS ORDERED: 0.9 % SODIUM CHLORIDE 10 ML DISP.SYRIN. IV (15:15)
[2017-05-19 15:42] LABS: POC GLUCOSE 188 mg/dL (70-99)
[2017-05-19] MEDS: PROCHLORPERAZINE 10 MG/2 ML VIAL. IV ×2 (15:46→16:08)
[2017-05-19] MEDS: fentaNYL PF VIAL 100 MCG/2 ML VIAL IV ×2 (15:47→16:08)
[2017-05-19] MEDS: hydrALAZINE 20 MG/ML VIAL. IVP (16:55)
[2017-05-19 17:13] LABS: POC GLUCOSE 188 mg/dL (70-99)
[2017-05-19] MEDS: HYDROcodone/APAP 5/325MG 1 TAB TABLET PO ×2 (18:09→20:44)
[2017-05-19] MEDS: DOCUSATE SODIUM 100 MG CAPSULE. PO (20:44)
[2017-05-19 21:03] LABS: POC GLUCOSE 227 mg/dL (70-99)
[2017-05-20] MEDS: HYDROcodone/APAP 5/325MG 1 TAB TABLET PO ×5 (00:42→21:20)
[2017-05-20] MEDS: MORPHINE SULFATE 4 MG/ML DISP.SYRIN. IV ×6 (00:43→19:43)
[2017-05-20] MEDS: IV RINGERS,LACTATED 1000ML 1,000 ML IV ×2 (03:25→11:08)
[2017-05-20 04:31] LABS: ADD MAN DIFF? NO
[2017-05-20 04:36] LABS: BASO % 0 % (0-3); EOS % 0 % (0-3); HEMOGLOBIN 13.8 g/dL (13.0-17.5); LYMPH # 1.4 x10^3/uL (1.0-4.8); LYMPH % 9 % (24-48); MEAN CORPUSCULAR HEMOGLOBIN 32 pg (25-35); MEAN CORPUSCULAR HGB CONC 34 g/dL (31-37); MEAN CORPUSCULAR VOLUME 96 fL (79-100); MONO # 1.1 x10^3/uL (0.0-1.1); MONO % 7 % (0-9); NEUT # 13.2 x10^3uL (1.8-7.7); NEUT % 84 % (31-73); PLATELET COUNT 278 x10^3/uL (140-400); RED BLOOD COUNT 4.28 x10^6/uL (4.30-5.70); RED CELL DISTRIBUTION WIDTH 14.3 % (11.5-14.5); WHITE BLOOD COUNT 15.7 x10^3/uL (4.0-11.0)
[2017-05-20 04:57] LABS: ANION GAP 9 (6-14); BLOOD UREA NITROGEN 9 mg/dL (8-26); CALCIUM 8.2 mg/dL (8.5-10.1); CARBON DIOXIDE 27 mmol/L (21-32); CHLORIDE 103 mmol/L (98-107); CREATININE 0.9 mg/dL (0.7-1.3); GFR 114.3; GLUCOSE 227 mg/dL (70-99); POTASSIUM 3.8 mmol/L (3.5-5.1); SODIUM 139 mmol/L (136-145)
[2017-05-20] MEDS: PANTOPRAZOLE 40 MG TABLET.DR. PO (06:36)
[2017-05-20] MEDS: DOCUSATE SODIUM 100 MG CAPSULE. PO ×2 (08:39→19:43)
[2017-05-20] MEDS: PREGABALIN 50 MG CAPSULE PO ×3 (08:39→19:43)
[2017-05-20] MEDS: metFORMIN 500 MG TABLET PO ×2 (08:39→16:54)
[2017-05-20] MEDS: ENOXAPARIN 40 MG/0.4 ML SYRINGE. SQ (08:40)
[2017-05-20] MEDS: LISINOPRIL 5 MG TABLET. PO (08:40)
[2017-05-20 08:45] LABS: POC GLUCOSE 222 mg/dL (70-99)
[2017-05-20 12:32] LABS: POC GLUCOSE 188 mg/dL (70-99)
[2017-05-20 17:07] LABS: POC GLUCOSE 215 mg/dL (70-99)
[2017-05-20] MEDS: PIOGLITAZONE 15 MG TABLET. PO (17:46)
[2017-05-20 21:01] LABS: POC GLUCOSE 140 mg/dL (70-99)
[2017-05-21] MEDS: MORPHINE SULFATE 4 MG/ML DISP.SYRIN. IV ×2 (00:28→05:09)
[2017-05-21] MEDS: HYDROcodone/APAP 5/325MG 1 TAB TABLET PO ×2 (02:17→07:27)
[2017-05-21 08:11] LABS: POC GLUCOSE 130 mg/dL (70-99)
[2017-05-21] MEDS: metFORMIN 500 MG TABLET PO (08:48)
[2017-05-21] MEDS: PREGABALIN 50 MG CAPSULE PO (08:48)
[2017-05-21] MEDS: LISINOPRIL 5 MG TABLET. PO (08:48)
[2017-05-21] MEDS: PIOGLITAZONE 15 MG TABLET. PO (08:48)
[2017-05-21] MEDS: ENOXAPARIN 40 MG/0.4 ML SYRINGE. SQ (08:49)
[2017-05-21] MEDS: PANTOPRAZOLE 40 MG TABLET.DR. PO (08:49)
[2017-05-21] MEDS: DOCUSATE SODIUM 100 MG CAPSULE. PO (08:49)
== END 2017-05-21 12:12 | disposition home or self-care (01) | DRG 415 ==
LOC: ER 13:24 → ED HOLD 16:15 → 2 NORTH 19:24
PROC: 0FT40ZZ Resection of Gallbladder, Open Approach (ICD-10-PCS; principal; 2017-05-19 13:10)
PROC: 0FJ44ZZ Inspection of Gallbladder, Percutaneous Endoscopic Approach (ICD-10-PCS; 2017-05-19 13:10)
PROC: 0DNE0ZZ Release Large Intestine, Open Approach (ICD-10-PCS; 2017-05-19 13:10)
PROC: BF101ZZ Fluoroscopy of Bile Ducts using Low Osmolar Contrast (ICD-10-PCS; 2017-05-19 13:10)
DX: K82.8 Other specified diseases of gallbladder (principal); I42.9 Cardiomyopathy, unspecified; E11.42 Type 2 diabetes mellitus with diabetic polyneuropathy; K81.1 Chronic cholecystitis; E78.5 Hyperlipidemia, unspecified; F17.200 Nicotine dependence, unspecified, uncomplicated; I10 Essential (primary) hypertension; K21.9 Gastro-esophageal reflux disease without esophagitis; F12.90 Cannabis use, unspecified, uncomplicated; K66.0 Peritoneal adhesions (postprocedural) (postinfection); F41.9 Anxiety disorder, unspecified; G89.29 Other chronic pain; Z53.31 Laparoscopic surgical procedure converted to open procedure; Z82.49 Family history of ischemic heart disease and other diseases of the circulatory system; Z87.11 Personal history of peptic ulcer disease; Z91.19 Patient's noncompliance with other medical treatment and regimen; Z79.4 Long term (current) use of insulin; Z88.0 Allergy status to penicillin; Z88.8 Allergy status to other drugs, medicaments and biological substances
CPT/HCPCS: 36415; 71045; 74018; 74177; 74300; 80048; 80053; 81001; 82962; 83690; 84484; 85025; 87086; 88304; 93005; 96361; 96374; 99285; 99285-25; 99406; J0360; J0690; J0780; J1100; J1650; J1956; J2250; J2270; J2405; J2704; J3010; J3490; J7030; J7120; Q9967

== ENCOUNTER 2017-06-20 15:21 | Emergency (ER) | payer MEDICARE ==
[2017-06-20] MEDS ORDERED: CONTRAST GIVEN MC (16:30)
[2017-06-20 16:36] LABS: ADD MAN DIFF? NO
[2017-06-20] MEDS: ONDANSETRON PF 4 MG/2 ML VIAL. IV (16:38)
[2017-06-20 16:39] LABS: BASO # 0.1 x10^3/uL (0.0-0.2); BASO % 1 % (0-3); EOS # 0.1 x10^3/uL (0.0-0.7); EOS % 2 % (0-3); HEMATOCRIT 43.2 % (39.0-53.0); HEMOGLOBIN 14.8 g/dL (13.0-17.5); LYMPH # 2.5 x10^3/uL (1.0-4.8); LYMPH % 30 % (24-48); MEAN CORPUSCULAR HEMOGLOBIN 33 pg (25-35); MEAN CORPUSCULAR HGB CONC 34 g/dL (31-37); MEAN CORPUSCULAR VOLUME 96 fL (79-100); MONO # 0.5 x10^3/uL (0.0-1.1); MONO % 6 % (0-9); NEUT # 5.1 x10^3uL (1.8-7.7); NEUT % 62 % (31-73); PLATELET COUNT 253 x10^3/uL (140-400); RED BLOOD COUNT 4.52 x10^6/uL (4.30-5.70); RED CELL DISTRIBUTION WIDTH 13.8 % (11.5-14.5); WHITE BLOOD COUNT 8.3 x10^3/uL (4.0-11.0)
[2017-06-20] MEDS: MORPHINE SULFATE 10 MG/ML VIAL. IV ×2 (16:39→19:35)
[2017-06-20] MEDS: IV NORMAL SALINE 1000ML BAG 1,000 ML IV (16:39)
[2017-06-20 16:46] LABS: ANION GAP 9 (6-14); BLOOD UREA NITROGEN 6 mg/dL (8-26); BUN/CREATININE RATIO 8 (6-20); CALCIUM 8.5 mg/dL (8.5-10.1); CARBON DIOXIDE 27 mmol/L (21-32); CHLORIDE 106 mmol/L (98-107); CREATININE 0.8 mg/dL (0.7-1.3); GFR 130.9; GLUCOSE 164 mg/dL (70-99); POTASSIUM 3.6 mmol/L (3.5-5.1); SODIUM 142 mmol/L (136-145)
[2017-06-20 16:48] LABS: ETHANOL < 10 mg/dL (0-10)
[2017-06-20 16:52] LABS: ALBUMIN 2.4 g/dL (3.4-5.0); ALBUMIN/GLOBULIN RATIO 0.5 (1.0-1.7); ALK PHOS 75 U/L (46-116); ALT (SGPT) 19 U/L (16-63); AST (SGOT) 14 U/L (15-37); LIPASE 189 U/L (73-393); TOTAL BILIRUBIN 0.5 mg/dL (0.2-1.0); TOTAL PROTEIN 6.8 g/dL (6.4-8.2)
[2017-06-20] MEDS: IOHEXOL 300 MG/ML 100ML VIAL. IV (17:17)
[2017-06-20 18:00] LABS: BILIRUBIN,URINE SMALL (NEG); GLUCOSE,URINE 100 mg/dL (NEG); NITRITE,URINE NEGATIVE (NEG); PROTEIN,URINE >=300 mg/dL (NEG-TRACE)
[2017-06-20 18:08] LABS: AMPHETAMINE/METHAMPHETAMINE NEG (NEG); BARBITURATES NEG (NEG); BENZODIAZEPINES NEG (NEG); CANNABINOIDS POS (NEG); COCAINE NEG (NEG); METHADONE NEG (NEG); OPIATES NEG (NEG); PHENCYCLIDINE NEG (NEG)
[2017-06-20 18:09] LABS: CLARITY,URINE CLEAR; COLOR,URINE DK YELLOW; ETHANOL, URINE NEG (NEG); RBC,URINE OCC /HPF (0-2)
[2017-06-20 18:10] LABS: BACTERIA,URINE 0 /HPF (0-FEW); HYALINE CASTS, URINE OCCASIONAL /HPF; SQUAMOUS EPITHELIAL CELL,UR MOD /LPF
[2017-06-20] MEDS: LIDO:MAALOX 1:1 20 ML SINGLE DOSE. SWSW (19:35)
== END 2017-06-20 19:46 | disposition home or self-care (01) ==
LOC: ER 15:21
DX: G89.29 Other chronic pain (principal); R10.84 Generalized abdominal pain; I10 Essential (primary) hypertension; E11.9 Type 2 diabetes mellitus without complications; F12.10 Cannabis abuse, uncomplicated; Z90.49 Acquired absence of other specified parts of digestive tract; Z88.0 Allergy status to penicillin; Z88.8 Allergy status to other drugs, medicaments and biological substances
CPT/HCPCS: 36415; 74177; 80053; 80307; 81001; 83690; 85025; 96361; 96374; 96375; 96376; 99285-25; G0480; J2270; J2405; J7030; Q9967

== ENCOUNTER 2017-06-21 18:08 | Emergency (ER) | payer MEDICARE ==
[2017-06-21] MEDS: ONDANSETRON ODT 4 MG TAB.RAPDIS. PO (19:36)
[2017-06-21] MEDS: MORPHINE SULFATE 10 MG/ML VIAL. IM (19:37)
[2017-06-21] MEDS: LIDO:MAALOX 1:1 20 ML SINGLE DOSE. SWSW (20:44)
== END 2017-06-21 20:42 | disposition home or self-care (01) ==
LOC: ER 18:08
DX: R10.84 Generalized abdominal pain (principal); E11.9 Type 2 diabetes mellitus without complications; I10 Essential (primary) hypertension; G89.29 Other chronic pain; F12.10 Cannabis abuse, uncomplicated; Z90.49 Acquired absence of other specified parts of digestive tract; Z88.0 Allergy status to penicillin; Z88.6 Allergy status to analgesic agent
CPT/HCPCS: 74022; 96372; 99284; J2270; Q0162

== ENCOUNTER 2017-06-24 14:55 | Emergency (ER) | payer MEDICARE ==
[2017-06-24] MEDS: LIDO:MAALOX 1:1 20 ML SINGLE DOSE. SWSW (16:08)
[2017-06-24] MEDS: MORPHINE SULFATE 10 MG/ML VIAL. IM (16:08)
== END 2017-06-24 16:00 | disposition home or self-care (01) ==
LOC: ER 16:00
DX: R10.84 Generalized abdominal pain (principal); I10 Essential (primary) hypertension; G89.29 Other chronic pain; F11.20 Opioid dependence, uncomplicated; E11.9 Type 2 diabetes mellitus without complications; Z90.49 Acquired absence of other specified parts of digestive tract; F12.10 Cannabis abuse, uncomplicated; Z88.0 Allergy status to penicillin
CPT/HCPCS: 96372; 99283-25; J2270

== ENCOUNTER 2017-06-25 12:04 | Emergency (ER) | payer MEDICARE ==
[2017-06-25] MEDS: LIDO:MAALOX 1:1 20 ML SINGLE DOSE. SWSW (13:39)
== END 2017-06-25 13:53 | disposition left against medical advice (07) ==
LOC: ER 13:53
DX: G89.29 Other chronic pain (principal); R10.84 Generalized abdominal pain; E11.9 Type 2 diabetes mellitus without complications; I10 Essential (primary) hypertension; Z90.49 Acquired absence of other specified parts of digestive tract; F11.20 Opioid dependence, uncomplicated; F17.200 Nicotine dependence, unspecified, uncomplicated; Z88.0 Allergy status to penicillin; Z88.8 Allergy status to other drugs, medicaments and biological substances
CPT/HCPCS: 99282

== ENCOUNTER 2017-07-01 13:34 | Emergency (ER) | payer MEDICARE ==
[2017-07-01] MEDS: ONDANSETRON ODT 4 MG TAB.RAPDIS. PO (14:32)
[2017-07-01] MEDS: LIDO:MAALOX 1:1 20 ML SINGLE DOSE. SWSW (14:32)
[2017-07-01] MEDS: traMADol 50 MG TABLET PO (14:32)
== END 2017-07-01 14:49 | disposition home or self-care (01) ==
LOC: ER 13:34
DX: G89.29 Other chronic pain (principal); R10.84 Generalized abdominal pain; E11.9 Type 2 diabetes mellitus without complications; I10 Essential (primary) hypertension; F12.10 Cannabis abuse, uncomplicated; F11.20 Opioid dependence, uncomplicated; Z88.0 Allergy status to penicillin; Z88.8 Allergy status to other drugs, medicaments and biological substances; Z90.49 Acquired absence of other specified parts of digestive tract
CPT/HCPCS: 99284; Q0162

== ENCOUNTER 2017-07-08 11:39 | Inpatient (IN) | payer MEDICARE ==
[2017-07-08 12:16] LABS: ADD MAN DIFF? NO; BASO # 0.1 x10^3/uL (0.0-0.2); BASO % 1 % (0-3); EOS # 0.1 x10^3/uL (0.0-0.7); EOS % 1 % (0-3); HEMATOCRIT 41.7 % (39.0-53.0); HEMOGLOBIN 14.8 g/dL (13.0-17.5); LYMPH % 22 % (24-48); MEAN CORPUSCULAR HEMOGLOBIN 34 pg (25-35); MEAN CORPUSCULAR HGB CONC 36 g/dL (31-37); MEAN CORPUSCULAR VOLUME 95 fL (79-100); MONO # 0.5 x10^3/uL (0.0-1.1); MONO % 6 % (0-9); NEUT # 6.4 x10^3uL (1.8-7.7); NEUT % 70 % (31-73); PLATELET COUNT 355 x10^3/uL (140-400); RED BLOOD COUNT 4.39 x10^6/uL (4.30-5.70); RED CELL DISTRIBUTION WIDTH 13.5 % (11.5-14.5); WHITE BLOOD COUNT 9.2 x10^3/uL (4.0-11.0)
[2017-07-08 12:35] LABS: ANION GAP 7 (6-14); BLOOD UREA NITROGEN 13 mg/dL (8-26); BUN/CREATININE RATIO 14 (6-20); CALCIUM 8.9 mg/dL (8.5-10.1); CARBON DIOXIDE 33 mmol/L (21-32); CHLORIDE 98 mmol/L (98-107); CREATININE 0.9 mg/dL (0.7-1.3); GFR 114.3; GLUCOSE 230 mg/dL (70-99); POTASSIUM 3.1 mmol/L (3.5-5.1); SODIUM 138 mmol/L (136-145)
[2017-07-08] MEDS: FAMOTIDINE 20 MG TABLET. PO (12:35)
[2017-07-08] MEDS: LIDO:MAALOX 1:1 20 ML SINGLE DOSE. SWSW ×2 (12:36→17:01)
[2017-07-08] MEDS: IV NORMAL SALINE 1000ML BAG 1,000 ML IV ×3 (12:37→22:38)
[2017-07-08 12:40] LABS: ALBUMIN 2.8 g/dL (3.4-5.0); ALBUMIN/GLOBULIN RATIO 0.8 (1.0-1.7); ALK PHOS 72 U/L (46-116); ALT (SGPT) 15 U/L (16-63); AST (SGOT) 12 U/L (15-37); LIPASE 94 U/L (73-393); TOTAL BILIRUBIN 0.4 mg/dL (0.2-1.0); TOTAL PROTEIN 6.4 g/dL (6.4-8.2)
[2017-07-08 12:41] LABS: TROPONINI 0.116 ng/mL (0.000-0.055)
[2017-07-08 12:49] LABS: BILIRUBIN,URINE NEGATIVE (NEG); CLARITY,URINE CLEAR; COLOR,URINE YELLOW; GLUCOSE,URINE >=1000 mg/dL (NEG); NITRITE,URINE NEGATIVE (NEG); PH,URINE 5.5; PROTEIN,URINE >=300 mg/dL (NEG-TRACE); UROBILINOGEN,URINE 0.2 mg/dL (0.2 mg/dL)
[2017-07-08] MEDS ORDERED: ONDANSETRON PF 4 MG/2 ML VIAL. IV (13:00)
[2017-07-08] MEDS ORDERED: CONTRAST GIVEN MC (13:00)
[2017-07-08] MEDS: IOHEXOL 300 MG/ML 100ML VIAL. IV (13:03)
[2017-07-08 13:10] LABS: BACTERIA,URINE 0 /HPF (0-FEW); SQUAMOUS EPITHELIAL CELL,UR FEW /LPF; WBC,URINE 0 /HPF (0-4)
[2017-07-08] MEDS: MORPHINE SULFATE 4 MG/ML DISP.SYRIN. IV ×5 (13:25→22:39)
[2017-07-08 13:52] LABS: BARBITURATES NEG (NEG); BENZODIAZEPINES NEG (NEG); CANNABINOIDS POS (NEG); COCAINE NEG (NEG); METHADONE NEG (NEG); OPIATES NEG (NEG); PHENCYCLIDINE NEG (NEG)
[2017-07-08 13:53] LABS: AMPHETAMINE/METHAMPHETAMINE NEG (NEG); ETHANOL, URINE NEG (NEG)
[2017-07-08] MEDS ORDERED: LABETALOL 20 MG/4 ML DISP.SYRIN. IVP (15:00)
[2017-07-08] MEDS: hydrALAZINE 20 MG/ML VIAL. IVP (15:10)
[2017-07-08] MEDS ORDERED: MORPHINE SULFATE 4 MG/ML DISP.SYRIN. IV (15:15)
[2017-07-08] MEDS ORDERED: DEXTROSE 50% 25 GM / 50ML DISP.SYRIN. IV (15:30)
[2017-07-08 16:14] LABS: CHOLESTEROL 130 mg/dL (0-200); CHOLESTEROL/HDL RATIO 3.3; HDLC 40 mg/dL (40-60); LDLC 70 mg/dL (0-100); NON-HDL CHOLESTEROL 90 mg/dL (0-129); TRIGLYCERIDES 98 mg/dL (0-150); VLDLC 20 mg/dL (0-40)
[2017-07-08] MEDS ORDERED: NICOTINE POLACRILEX 2MG GUM PACKAGE of 12. BC (16:15)
[2017-07-08] MEDS ORDERED: NICOTINE 14MG PATCH. TD (16:15)
[2017-07-08 16:53] LABS: POC GLUCOSE 137 mg/dL (70-99)
[2017-07-08] MEDS: INSULIN LISPRO 300 UNITS/3 ML INSULN.PEN. SQ (17:00)
[2017-07-08] MEDS: PREGABALIN 50 MG CAPSULE PO ×2 (17:00→20:06)
[2017-07-08] MEDS: ONDANSETRON ODT 4 MG TAB.RAPDIS. PO ×2 (17:00→22:00)
[2017-07-08] MEDS: PANTOPRAZOLE 40 MG TABLET.DR. PO (17:00)
[2017-07-08] MEDS: DICYCLOMINE HCL 10 MG CAPSULE PO ×2 (17:01→20:06)
[2017-07-08] MEDS: amLODIPine BESYLATE 5 MG TABLET PO (17:01)
[2017-07-08] MEDS: LISINOPRIL 5 MG TABLET. PO (17:01)
[2017-07-08 19:32] LABS: TROPONINI 0.136 ng/mL (0.000-0.055)
[2017-07-08 21:32] LABS: POC GLUCOSE 117 mg/dL (70-99)
[2017-07-09] MEDS: MORPHINE SULFATE 4 MG/ML DISP.SYRIN. IV ×3 (00:44→06:27)
[2017-07-09] MEDS: ONDANSETRON ODT 4 MG TAB.RAPDIS. PO ×2 (06:00→15:22)
[2017-07-09] MEDS: INSULIN LISPRO 300 UNITS/3 ML INSULN.PEN. SQ ×2 (08:00→12:00)
[2017-07-09 08:11] LABS: POC GLUCOSE 154 mg/dL (70-99)
[2017-07-09] MEDS: DOCUSATE SODIUM 100 MG CAPSULE. PO (09:15)
[2017-07-09] MEDS: LISINOPRIL 5 MG TABLET. PO (09:16)
[2017-07-09] MEDS: DICYCLOMINE HCL 10 MG CAPSULE PO ×2 (09:16→15:22)
[2017-07-09] MEDS: PANTOPRAZOLE 40 MG TABLET.DR. PO (09:16)
[2017-07-09] MEDS: amLODIPine BESYLATE 5 MG TABLET PO (09:17)
[2017-07-09] MEDS: PREGABALIN 50 MG CAPSULE PO ×2 (09:18→15:22)
[2017-07-09] MEDS: HYDROcodone/APAP 5/325MG 1 TAB TABLET PO ×2 (09:19→14:09)
[2017-07-09] MEDS ORDERED: ANTI-COAG MONITOR BY PHARMACY. MC (09:30)
[2017-07-09] MEDS ORDERED: LIDO:MAALOX 1:1 20 ML SINGLE DOSE. PO (10:00)
[2017-07-09 11:29] LABS: POC GLUCOSE 160 mg/dL (70-99)
[2017-07-09] MEDS ORDERED: ONDANSETRON PF 4 MG/2 ML VIAL. IV (15:15)
[2017-07-09] MEDS ORDERED: hydrALAZINE 20 MG/ML VIAL. IVP (15:15)
[2017-07-09] MEDS ORDERED: DOCUSATE SODIUM 100 MG CAPSULE. PO (15:15)
[2017-07-09] MEDS ORDERED: traMADol 50 MG TABLET PO (15:15)
[2017-07-09] MEDS ORDERED: ACETAMINOPHEN 325 MG TABLET. PO (15:15)
[2017-07-09] MEDS ORDERED: MORPHINE SULFATE 2 MG/ML DISP.SYRIN. IV (15:15)
[2017-07-09 16:11] LABS: POC GLUCOSE 163 mg/dL (70-99)
== END 2017-07-09 17:35 | disposition home or self-care (01) | DRG 384 ==
LOC: ER 11:39 → 2 SOUTH 12:45
DX: K27.9 Peptic ulcer, site unspecified, unspecified as acute or chronic, without hemorrhage or perforation (principal); E11.42 Type 2 diabetes mellitus with diabetic polyneuropathy; I42.9 Cardiomyopathy, unspecified; E44.1 Mild protein-calorie malnutrition; K21.9 Gastro-esophageal reflux disease without esophagitis; Z68.26 Body mass index [BMI] 26.0-26.9, adult; E78.5 Hyperlipidemia, unspecified; E87.6 Hypokalemia; F12.10 Cannabis abuse, uncomplicated; F17.210 Nicotine dependence, cigarettes, uncomplicated; G89.29 Other chronic pain; Z82.49 Family history of ischemic heart disease and other diseases of the circulatory system; Z91.19 Patient's noncompliance with other medical treatment and regimen; Z95.1 Presence of aortocoronary bypass graft; F41.9 Anxiety disorder, unspecified; Z90.49 Acquired absence of other specified parts of digestive tract; Z88.0 Allergy status to penicillin; Z88.8 Allergy status to other drugs, medicaments and biological substances; I99.8 Other disorder of circulatory system; I10 Essential (primary) hypertension; I11.9 Hypertensive heart disease without heart failure
CPT/HCPCS: 36415; 74177; 80053; 80061; 80307; 81001; 82962; 83690; 84484; 85025; 93005; 96360; 96372; 99285; 99285-25; J0360; J1650; J1815; J2270; J7030; Q0162; Q9967

== ENCOUNTER 2017-07-12 05:29 | Emergency (ER) | payer MEDICARE ==
[2017-07-12] MEDS: MORPHINE SULFATE 4 MG/ML DISP.SYRIN. IV ×2 (06:14)
== END 2017-07-12 06:28 | disposition home or self-care (01) ==
LOC: ER 05:29
DX: G89.29 Other chronic pain (principal); R10.9 Unspecified abdominal pain; I11.9 Hypertensive heart disease without heart failure; E11.9 Type 2 diabetes mellitus without complications; F12.10 Cannabis abuse, uncomplicated; F17.200 Nicotine dependence, unspecified, uncomplicated; F17.210 Nicotine dependence, cigarettes, uncomplicated; Z88.0 Allergy status to penicillin; Z88.6 Allergy status to analgesic agent; Z90.49 Acquired absence of other specified parts of digestive tract
CPT/HCPCS: 96374; 99284; J2270

== ENCOUNTER 2017-07-22 14:29 | Inpatient (IN) | payer MEDICARE ==
[2017-07-22 15:00] LABS: ADD MAN DIFF? NO
[2017-07-22] MEDS: DICYCLOMINE 20 MG/2 ML AMPUL. IM (15:00)
[2017-07-22 15:02] LABS: BASO # 0.1 x10^3/uL (0.0-0.2); BASO % 1 % (0-3); EOS # 0.1 x10^3/uL (0.0-0.7); EOS % 1 % (0-3); HEMATOCRIT 27.3 % (39.0-53.0); HEMOGLOBIN 9.4 g/dL (13.0-17.5); LYMPH # 2.2 x10^3/uL (1.0-4.8); LYMPH % 23 % (24-48); MEAN CORPUSCULAR HEMOGLOBIN 34 pg (25-35); MEAN CORPUSCULAR HGB CONC 34 g/dL (31-37); MEAN CORPUSCULAR VOLUME 98 fL (79-100); MONO # 0.6 x10^3/uL (0.0-1.1); MONO % 6 % (0-9); NEUT # 6.6 x10^3uL (1.8-7.7); NEUT % 69 % (31-73); PLATELET COUNT 414 x10^3/uL (140-400); RED BLOOD COUNT 2.77 x10^6/uL (4.30-5.70); RED CELL DISTRIBUTION WIDTH 16.6 % (11.5-14.5); WHITE BLOOD COUNT 9.5 x10^3/uL (4.0-11.0)
[2017-07-22 15:14] LABS: ANION GAP 9 (6-14); BLOOD UREA NITROGEN 7 mg/dL (8-26); BUN/CREATININE RATIO 9 (6-20); CALCIUM 8.7 mg/dL (8.5-10.1); CARBON DIOXIDE 25 mmol/L (21-32); CHLORIDE 107 mmol/L (98-107); CREATININE 0.8 mg/dL (0.7-1.3); GFR 130.2; GLUCOSE 137 mg/dL (70-99); POTASSIUM 3.6 mmol/L (3.5-5.1); SODIUM 141 mmol/L (136-145)
[2017-07-22 15:19] LABS: ALBUMIN 2.5 g/dL (3.4-5.0); ALBUMIN/GLOBULIN RATIO 0.6 (1.0-1.7); ALK PHOS 72 U/L (46-116); AST (SGOT) 13 U/L (15-37); LIPASE 543 U/L (73-393); TOTAL BILIRUBIN 0.2 mg/dL (0.2-1.0); TOTAL PROTEIN 6.5 g/dL (6.4-8.2)
[2017-07-22 15:26] LABS: TROPONINI 0.066 ng/mL (0.000-0.055)
[2017-07-22 15:31] LABS: CKMB INDEX 0.7 % (0-4); CKMB MASS 1.4 ng/mL (0.0-3.6); CREATINE KINASE 208 U/L (39-308)
[2017-07-22 15:31] LABS: NT-PRO BNP 73 pg/mL (0-124)
[2017-07-22 15:32] LABS: ALT (SGPT) 20 U/L (16-63)
[2017-07-22 15:58] LABS: FECAL OB PT NEGATIVE (NEG); NEG OBC FOB NEG; POS OBC FOB POS
[2017-07-22 17:20] LABS: BILIRUBIN,URINE SMALL (NEG); CLARITY,URINE CLEAR; COLOR,URINE YELLOW; GLUCOSE,URINE NEGATIVE (NEG); NITRITE,URINE NEGATIVE (NEG); PH,URINE 5.5; PROTEIN,URINE >=300 mg/dL (NEG-TRACE); UROBILINOGEN,URINE 0.2 mg/dL (0.2 mg/dL)
[2017-07-22 17:25] LABS: BACTERIA,URINE 0 /HPF (0-FEW); RBC,URINE RARE /HPF (0-2); WBC,URINE OCC /HPF (0-4)
[2017-07-22 17:26] LABS: HYALINE CASTS, URINE MODERATE /HPF; SQUAMOUS EPITHELIAL CELL,UR FEW /LPF
[2017-07-22 17:27] LABS: AMPHETAMINE/METHAMPHETAMINE NEG (NEG); BARBITURATES NEG (NEG); BENZODIAZEPINES NEG (NEG); CANNABINOIDS POS (NEG); COCAINE NEG (NEG); ETHANOL, URINE NEG (NEG); METHADONE NEG (NEG); OPIATES NEG (NEG); PHENCYCLIDINE NEG (NEG)
[2017-07-22] MEDS: DICYCLOMINE HCL 10 MG CAPSULE PO ×2 (18:40→20:58)
[2017-07-22] MEDS: FUROSEMIDE 20 MG/2 ML VIAL. IVP (18:40)
[2017-07-22] MEDS: HYDROcodone/APAP 5/325MG 1 TAB TABLET PO (18:41)
[2017-07-22] MEDS ORDERED: DEXTROSE 50% 25 GM / 50ML DISP.SYRIN. IV (19:45)
[2017-07-22 20:44] LABS: POC GLUCOSE 241 mg/dL (70-99)
[2017-07-23] MEDS: HYDROcodone/APAP 5/325MG 1 TAB TABLET PO ×3 (01:03→09:08)
[2017-07-23] MEDS ORDERED: DEXTROSE 50% 25 GM / 50ML DISP.SYRIN. IV (01:15)
[2017-07-23] MEDS: FUROSEMIDE 20 MG/2 ML VIAL. IVP (01:41)
[2017-07-23] MEDS: INSULIN LISPRO 300 UNITS/3 ML INSULN.PEN. SQ (08:00)
[2017-07-23 08:37] LABS: ADD MAN DIFF? NO
[2017-07-23 08:41] LABS: BASO % 1 % (0-3); EOS # 0.1 x10^3/uL (0.0-0.7); EOS % 2 % (0-3); HEMATOCRIT 27.1 % (39.0-53.0); HEMOGLOBIN 9.3 g/dL (13.0-17.5); LYMPH # 2.1 x10^3/uL (1.0-4.8); LYMPH % 29 % (24-48); MEAN CORPUSCULAR HEMOGLOBIN 34 pg (25-35); MEAN CORPUSCULAR HGB CONC 34 g/dL (31-37); MEAN CORPUSCULAR VOLUME 99 fL (79-100); MONO # 0.6 x10^3/uL (0.0-1.1); MONO % 8 % (0-9); NEUT # 4.5 x10^3uL (1.8-7.7); NEUT % 61 % (31-73); PLATELET COUNT 371 x10^3/uL (140-400); RED BLOOD COUNT 2.75 x10^6/uL (4.30-5.70); RED CELL DISTRIBUTION WIDTH 16.6 % (11.5-14.5); WHITE BLOOD COUNT 7.3 x10^3/uL (4.0-11.0)
[2017-07-23] MEDS: DICYCLOMINE HCL 10 MG CAPSULE PO (09:09)
[2017-07-23 09:14] LABS: POC GLUCOSE 145 mg/dL (70-99)
[2017-07-23 09:17] LABS: ALBUMIN 2.2 g/dL (3.4-5.0); ANION GAP 9 (6-14); BLOOD UREA NITROGEN 6 mg/dL (8-26); CARBON DIOXIDE 26 mmol/L (21-32); CHLORIDE 107 mmol/L (98-107); CREATININE 0.7 mg/dL (0.7-1.3); GFR 151.9; GLUCOSE 140 mg/dL (70-99); POTASSIUM 3.8 mmol/L (3.5-5.1); SODIUM 142 mmol/L (136-145)
[2017-07-23 09:26] LABS: TROPONINI 0.073 ng/mL (0.000-0.055)
[2017-07-23] MEDS: SUCRALFATE 1 GM TABLET. PO (10:50)
[2017-07-23] MEDS: FUROSEMIDE 20 MG TABLET PO (10:50)
== END 2017-07-23 11:30 | disposition home or self-care (01) | DRG 383 ==
LOC: ER 14:29 → 5 SOUTH 16:19
DX: K27.9 Peptic ulcer, site unspecified, unspecified as acute or chronic, without hemorrhage or perforation (principal); I50.23 Acute on chronic systolic (congestive) heart failure; E44.1 Mild protein-calorie malnutrition; I24.8 Other forms of acute ischemic heart disease; K21.9 Gastro-esophageal reflux disease without esophagitis; E11.9 Type 2 diabetes mellitus without complications; I11.0 Hypertensive heart disease with heart failure; E78.5 Hyperlipidemia, unspecified; Z88.0 Allergy status to penicillin; Z88.8 Allergy status to other drugs, medicaments and biological substances; E87.6 Hypokalemia; F12.10 Cannabis abuse, uncomplicated; G89.29 Other chronic pain; Z95.1 Presence of aortocoronary bypass graft; Z68.25 Body mass index [BMI] 25.0-25.9, adult; Z83.3 Family history of diabetes mellitus; Z82.49 Family history of ischemic heart disease and other diseases of the circulatory system
CPT/HCPCS: 36415; 71045; 80048; 80053; 80307; 81001; 82040; 82274; 82553; 82962; 83605; 83690; 83880; 84484; 85025; 93005; 96372; 99285; 99285-25; J0500; J1815

== ENCOUNTER 2017-11-08 07:44 | Emergency (ER) | payer MEDICARE ==
[~2017-11-08] VITALS: Ht 185.4 cm; Wt 95.3 kg
[~2017-11-08 07:44] MED LIST changes: +CLIN300C8 PO; +DOCU100C28 PO; +FURO20TA3 PO; +HYDR-2758 PO; +HYDR-971 PO; +LISI-338 PO; +METF500T16 PO; -METF500T4 PO; +ONDA4TAB10 SL; +PIOG15TA42 PO; +PREG50CA PO; +PROM12.56 PO; +Pantoprazole PO; +SUCR1TAB35 PO; +TRAM50TA PO
[2017-11-08] MEDS ORDERED: PIOGLITAZONE 15 MG TABLET. PO STA (08:34)
[2017-11-08] MEDS ORDERED: MORPHINE SULFATE 10 MG/ML VIAL. IM ONE (08:45)
[2017-11-08] MEDS ORDERED: LISINOPRIL 10 MG TABLET PO ONE (08:45)
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
[2017-11-08] MEDS ORDERED: HYDR-971 PO (09:08)
[2017-11-08] MEDS ORDERED: PIOG15TA42 PO (09:08)
[2017-11-08] MEDS ORDERED: LISI10TA2 PO (09:08)
[2017-11-08 10:07] VITALS: BP 186/105
[2017-11-11] MEDS ORDERED: HYDR-971 PO (11:40)
[2017-11-11] MEDS ORDERED: AMLO10TA6 PO (11:40)
[2017-11-11] MEDS ORDERED: Pantoprazole PO (12:56)
[2017-11-11] MEDS ORDERED: SUCR1TAB35 PO (12:56)
[2017-11-11] MEDS ORDERED: METF500T16 PO (12:56)
[2017-11-11] MEDS ORDERED: LISI10TA2 PO (12:56)
[2017-11-11] MEDS ORDERED: PREG50CA PO (12:56)
== END 2017-11-08 10:24 | disposition home or self-care (01) ==
LOC: ER 07:44
DX: R10.13 Epigastric pain (principal); G89.29 Other chronic pain; I10 Essential (primary) hypertension; E11.9 Type 2 diabetes mellitus without complications; Z90.49 Acquired absence of other specified parts of digestive tract; Z88.0 Allergy status to penicillin; Z88.6 Allergy status to analgesic agent
CPT/HCPCS: 96372; 99283; J2270

== ENCOUNTER 2017-11-21 07:15 | Emergency (ER) | payer MEDICARE ==
[~2017-11-21] VITALS: Ht 185.4 cm; Wt 99.8 kg
[~2017-11-21 07:15] MED LIST changes: +AMLO10TA6 PO; +LISI10TA2 PO
[2017-11-21] MEDS ORDERED: HYDR-971 PO ×2 (07:32→09:22)
[2017-11-21 07:59] LABS: BASO # 0.1 x10^3/uL (0.0-0.2); BASO % 1 % (0-3); EOS # 0.1 x10^3/uL (0.0-0.7); EOS % 2 % (0-3); HEMATOCRIT 41.1 % (39.0-53.0); HEMOGLOBIN 14.2 g/dL (13.0-17.5); LYMPH # 2.3 x10^3/uL (1.0-4.8); LYMPH % 26 % (24-48); MEAN CORPUSCULAR HEMOGLOBIN 33 pg (25-35); MEAN CORPUSCULAR HGB CONC 35 g/dL (31-37); MEAN CORPUSCULAR VOLUME 95 fL (79-100); MONO # 0.6 x10^3/uL (0.0-1.1); MONO % 7 % (0-9); NEUT # 5.9 x10^3uL (1.8-7.7); NEUT % 66 % (31-73); PLATELET COUNT 262 x10^3/uL (140-400); RED BLOOD COUNT 4.34 x10^6/uL (4.30-5.70); RED CELL DISTRIBUTION WIDTH 14.2 % (11.5-14.5)
[2017-11-21] MEDS ORDERED: HYDROcodone/APAP 5/325MG 1 TAB TABLET PO ONE (08:00)
[2017-11-21 08:15] VITALS: BP 153/82
[2017-11-21] MEDS ORDERED: amLODIPine BESYLATE 5 MG TABLET PO ONE (08:15)
[2017-11-21 08:20] LABS: CALCIUM 9.2 mg/dL (8.5-10.1); GFR 100.7; POTASSIUM 4.3 mmol/L (3.5-5.1)
[2017-11-21 08:25] LABS: ALBUMIN/GLOBULIN RATIO 0.4 (1.0-1.7); TOTAL BILIRUBIN 0.3 mg/dL (0.2-1.0); TOTAL PROTEIN 6.6 g/dL (6.4-8.2)
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
== END 2017-11-21 08:35 | disposition home or self-care (01) ==
LOC: ER 07:15
DX: G89.29 Other chronic pain (principal); R10.10 Upper abdominal pain, unspecified; R10.13 Epigastric pain; R11.10 Vomiting, unspecified; I10 Essential (primary) hypertension; E11.9 Type 2 diabetes mellitus without complications; Z90.49 Acquired absence of other specified parts of digestive tract; Z88.0 Allergy status to penicillin; Z88.6 Allergy status to analgesic agent
CPT/HCPCS: 36415; 80053; 83690; 85025; 99284

== ENCOUNTER 2018-04-12 09:23 | Emergency (ER) | payer MEDICARE ==
[~2018-04-12] VITALS: Ht 188 cm; Wt 106.6 kg
[~2018-04-12 09:23] MED LIST changes: -AMLO10TA6 PO; +AMLO10TA8 PO; -HYDR-2758 PO; +HYDR-2761 PO; +HYDR-3164 PO; -HYDR-971 PO; -PROM12.56 PO; +PROM12.58 PO
[2018-04-12] MEDS ORDERED: IV NORMAL SALINE 1000ML BAG 1,000 ML IV ONE ×2 (10:30→11:15)
[2018-04-12] MEDS ORDERED: ONDANSETRON PF 4 MG/2 ML VIAL. IV ONE (10:30)
[2018-04-12] MEDS ORDERED: fentaNYL PF VIAL 100 MCG/2 ML VIAL IV ONE ×2 (10:30→12:45)
[2018-04-12 10:36] LABS: BILIRUBIN,URINE SMALL (NEG); CLARITY,URINE CLEAR; NITRITE,URINE NEGATIVE (NEG); PROTEIN,URINE >=300 mg/dL (NEG-TRACE); UROBILINOGEN,URINE 0.2 mg/dL (0.2 mg/dL)
[2018-04-12 10:52] LABS: COLOR,URINE YELLOW
[2018-04-12 10:53] LABS: HYALINE CASTS, URINE MANY /HPF; SQUAMOUS EPITHELIAL CELL,UR MOD /LPF
[2018-04-12 10:58] LABS: BACTERIA,URINE MODERATE /HPF (0-FEW)
[2018-04-12 11:03] LABS: BASO # 0.1 x10^3/uL (0.0-0.2); BASO % 0 % (0-3); EOS % 0 % (0-3); HEMATOCRIT 44.7 % (39.0-53.0); HEMOGLOBIN 15.1 g/dL (13.0-17.5); LYMPH # 1.3 x10^3/uL (1.0-4.8); LYMPH % 10 % (24-48); MEAN CORPUSCULAR HEMOGLOBIN 32 pg (25-35); MEAN CORPUSCULAR HGB CONC 34 g/dL (31-37); MEAN CORPUSCULAR VOLUME 95 fL (79-100); MONO # 0.6 x10^3/uL (0.0-1.1); MONO % 4 % (0-9); NEUT # 12.1 x10^3uL (1.8-7.7); NEUT % 86 % (31-73); PLATELET COUNT 314 x10^3/uL (140-400); RED BLOOD COUNT 4.72 x10^6/uL (4.30-5.70); RED CELL DISTRIBUTION WIDTH 13.6 % (11.5-14.5); WHITE BLOOD COUNT 14.1 x10^3/uL (4.0-11.0)
[2018-04-12 11:15] LABS: CALCIUM 8.7 mg/dL (8.5-10.1); CREATININE 0.9 mg/dL (0.7-1.3); GFR 113.7; POTASSIUM 3.7 mmol/L (3.5-5.1)
--- NOTE | 2018-04-12 11:16 | RAD ---
Examination: Ultrasound right upper quadrant abdomen HISTORY: History of right upper quadrant pain COMPARISON: None available FINDINGS: The right lobe of the liver measures 17.6 cm. The visualized echogenicity liver grossly appears unremarkable. The common bile duct measures 2.1 mm in transverse dimension. The gallbladder is not identified likely prior cholecystectomy changes. The pancreas is not well-visualized due to bowel gas. The visualized aorta, IVC within normal limits of dimension. The right kidney measures 14.4 cm in length. IMPRESSION: Unremarkable visualized exam Electronically signed by: Herrera Chavira MD (04/12/2018 11:14 AM) [place] [id number]
[2018-04-12 11:20] LABS: ALBUMIN 2.1 g/dL (3.4-5.0); ALBUMIN/GLOBULIN RATIO 0.4 (1.0-1.7); TOTAL BILIRUBIN 0.5 mg/dL (0.2-1.0); TOTAL PROTEIN 7.4 g/dL (6.4-8.2)
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
[2018-04-12 11:55] LABS: % BANDS 3 % (0-9); % LYMPHS 11 % (24-48); % MONOS 6 % (0-10); % SEGS 80 % (35-66); PLT ESTIMATE ADEQUATE (ADEQUATE)
[2018-04-12] MEDS ORDERED: ONDA4TAB12 PO (12:03)
[2018-04-12 12:30] VITALS: BP 179/89
[2018-04-12] MEDS ORDERED: LISI10TA2 PO (12:48)
[2018-05-10] MEDS ORDERED: LISI-338 PO (17:19)
== END 2018-04-12 13:04 | disposition home or self-care (01) ==
LOC: ER 09:23
DX: R10.11 Right upper quadrant pain (principal); R11.2 Nausea with vomiting, unspecified; I10 Essential (primary) hypertension; R31.9 Hematuria, unspecified; E11.9 Type 2 diabetes mellitus without complications; G89.29 Other chronic pain; Z90.49 Acquired absence of other specified parts of digestive tract; F17.200 Nicotine dependence, unspecified, uncomplicated; Z88.0 Allergy status to penicillin; Z88.8 Allergy status to other drugs, medicaments and biological substances
CPT/HCPCS: 36415; 76705; 80053; 81001; 85007; 85025; 87086; 96361; 96374; 96375; 96376; 99284; J2405; J3010; J7030

== ENCOUNTER 2018-04-28 17:25 | Emergency (ER) | payer MEDICARE ==
[~2018-04-28] VITALS: Ht 182.9 cm; Wt 106.6 kg
[~2018-04-28 17:25] MED LIST changes: +ONDA4TAB12 PO
[2018-04-28 17:58] LABS: BASO # 0.1 x10^3/uL (0.0-0.2); BASO % 1 % (0-3); EOS % 1 % (0-3); HEMATOCRIT 43.5 % (39.0-53.0); HEMOGLOBIN 14.7 g/dL (13.0-17.5); LYMPH % 23 % (24-48); MEAN CORPUSCULAR HEMOGLOBIN 32 pg (25-35); MEAN CORPUSCULAR HGB CONC 34 g/dL (31-37); MEAN CORPUSCULAR VOLUME 95 fL (79-100); MONO # 0.5 x10^3/uL (0.0-1.1); MONO % 6 % (0-9); NEUT # 5.9 x10^3uL (1.8-7.7); NEUT % 69 % (31-73); PLATELET COUNT 311 x10^3/uL (140-400); RED BLOOD COUNT 4.57 x10^6/uL (4.30-5.70); RED CELL DISTRIBUTION WIDTH 14.6 % (11.5-14.5); WHITE BLOOD COUNT 8.5 x10^3/uL (4.0-11.0)
[2018-04-28] MEDS ORDERED: IV NORMAL SALINE 1000ML BAG 1,000 ML IV ONE ×2 (18:00→20:30)
[2018-04-28 18:04] LABS: CALCIUM 8.5 mg/dL (8.5-10.1); GFR 100.7; POTASSIUM 4.1 mmol/L (3.5-5.1)
[2018-04-28 18:09] LABS: ALBUMIN 2.1 g/dL (3.4-5.0); ALBUMIN/GLOBULIN RATIO 0.5 (1.0-1.7); MAGNESIUM 1.5 mg/dL (1.8-2.4); TOTAL BILIRUBIN 0.5 mg/dL (0.2-1.0); TOTAL PROTEIN 6.6 g/dL (6.4-8.2)
[2018-04-28] MEDS ORDERED: ONDANSETRON PF 4 MG/2 ML VIAL. IV ONE (18:15)
[2018-04-28] MEDS ORDERED: DICYCLOMINE 20 MG/2 ML AMPUL. IM ONE (18:15)
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
[2018-04-28 19:51] LABS: BILIRUBIN,URINE NEGATIVE (NEG); CLARITY,URINE CLEAR; COLOR,URINE YELLOW; NITRITE,URINE NEGATIVE (NEG); PH,URINE 6.5; PROTEIN,URINE >=300 mg/dL (NEG-TRACE)
[2018-04-28 20:10] LABS: BACTERIA,URINE FEW /HPF (0-FEW)
[2018-04-28 20:11] LABS: GRANULAR CASTS,URINE MODERATE /HPF; HYALINE CASTS, URINE MANY /HPF; SQUAMOUS EPITHELIAL CELL,UR FEW /LPF
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
[2018-04-28] MEDS ORDERED: CONTRAST GIVEN. MC PRN (20:30)
[2018-04-28] MEDS ORDERED: fentaNYL PF VIAL 100 MCG/2 ML VIAL IV ONE ×2 (20:45→23:00)
--- NOTE | 2018-04-28 20:56 | RAD ---
EXAM: Abdomen and pelvis CT with intravenous contrast. HISTORY: Pain. TECHNIQUE: Computed tomographic images of the abdomen and pelvis were obtained following the administration of 75 cc Omnipaque 300 intravenous contrast. Multiplanar reformatting was performed. *One or more of the following individualized dose reduction techniques were utilized for this examination: 1. Automated exposure control. 2. Adjustment of the mA and/or kV according to patient size. 3. Use of iterative reconstruction technique. COMPARISON: 11/10/2017. FINDINGS: Evaluation of the lower thorax is unremarkable. No suspicious hepatic lesion is seen, with evaluation slightly limited due to the phase of contrast administration. The gallbladder is surgically absent. The pancreas, spleen and right adrenal gland are unremarkable. There is a stable small left adrenal adenoma or adrenal gland thickening. The kidneys are unremarkable. There is no appendicitis. There is mild mucosal thickening involving the colon, primarily the ascending and transverse colon and rectosigmoid junction. There is no evidence of bowel obstruction. There is stable prominent retroperitoneal lymph nodes, likely physiologic or reactive in etiology. There is a tiny fat-containing periumbilical hernia to left of midline. The bladder is unremarkable. There is vast deferens calcification, a finding which can be seen with diabetes. No suspicious osseous lesion is seen. IMPRESSION: 1. Mild colonic wall thickening, predominantly involving the ascending and transverse colon. This may be due to relative under distention or mild colitis of infectious or inflammatory etiologies. There is also mucosal thickening at the rectosigmoid junction which may be due to peristalsis or colitis. 2. Otherwise, no acute abdominal or pelvic finding. Electronically signed by: Candice Jean MD (04/28/2018 8:53 PM) [facility]
[2018-04-28] MEDS ORDERED: IOHEXOL 300 MG/ML 100ML VIAL. IV ONE (21:00)
[2018-04-28 22:02] VITALS: BP 168/81
[2018-04-28] MEDS ORDERED: ONDA4TAB12 PO (22:44)
[2018-05-10] MEDS ORDERED: LISI-338 PO (17:19)
== END 2018-04-28 23:30 | disposition home or self-care (01) ==
LOC: ER 17:25
DX: R10.84 Generalized abdominal pain (principal); R11.2 Nausea with vomiting, unspecified; R19.7 Diarrhea, unspecified; R50.9 Fever, unspecified; E11.9 Type 2 diabetes mellitus without complications; I10 Essential (primary) hypertension; G89.29 Other chronic pain; F12.20 Cannabis dependence, uncomplicated; F17.200 Nicotine dependence, unspecified, uncomplicated; Z90.49 Acquired absence of other specified parts of digestive tract; Z88.0 Allergy status to penicillin; Z88.6 Allergy status to analgesic agent
CPT/HCPCS: 36415; 74022; 74177; 80053; 81001; 83690; 83735; 85025; 87086; 96361; 96372; 96374; 96375; 96376; 99284; J0500; J2405; J3010; J7030; Q9967

== ENCOUNTER 2018-05-27 18:27 | Inpatient (IN) | payer MEDICARE ==
[~2018-05-27] VITALS: Ht 188 cm; Wt 95.4 kg
[2018-05-27 11:45] VITALS: BP 206/102
[2018-05-27] MEDS ORDERED: DICYCLOMINE 20 MG/2 ML AMPUL. IM ONE (19:15)
[2018-05-27] MEDS ORDERED: IV NORMAL SALINE 1000ML BAG 1,000 ML IV ONE (19:15)
[2018-05-27] MEDS ORDERED: ONDANSETRON PF 4 MG/2 ML VIAL. IV ONE (19:15)
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
[2018-05-27 19:37] LABS: BASO # 0.1 x10^3/uL (0.0-0.2); BASO % 1 % (0-3); EOS % 0 % (0-3); HEMATOCRIT 41.3 % (39.0-53.0); HEMOGLOBIN 14.4 g/dL (13.0-17.5); LYMPH # 1.5 x10^3/uL (1.0-4.8); LYMPH % 17 % (24-48); MEAN CORPUSCULAR HEMOGLOBIN 33 pg (25-35); MEAN CORPUSCULAR HGB CONC 35 g/dL (31-37); MEAN CORPUSCULAR VOLUME 94 fL (79-100); MONO # 0.5 x10^3/uL (0.0-1.1); MONO % 6 % (0-9); NEUT # 6.8 x10^3uL (1.8-7.7); NEUT % 77 % (31-73); PLATELET COUNT 357 x10^3/uL (140-400); RED BLOOD COUNT 4.37 x10^6/uL (4.30-5.70); RED CELL DISTRIBUTION WIDTH 14.2 % (11.5-14.5); WHITE BLOOD COUNT 8.9 x10^3/uL (4.0-11.0)
[2018-05-27] MEDS ORDERED: fentaNYL PF VIAL 100 MCG/2 ML VIAL IV ONE (20:15)
[2018-05-27 20:18] LABS: CALCIUM 8.7 mg/dL (8.5-10.1); CREATININE 1.1 mg/dL (0.7-1.3); GFR 90.2; POTASSIUM 3.7 mmol/L (3.5-5.1)
[2018-05-27 20:24] LABS: ALBUMIN 1.8 g/dL (3.4-5.0); ALBUMIN/GLOBULIN RATIO 0.3 (1.0-1.7); MAGNESIUM 1.8 mg/dL (1.8-2.4); TOTAL BILIRUBIN 0.3 mg/dL (0.2-1.0)
[2018-05-27] MEDS ORDERED: ONDANSETRON PF 4 MG/2 ML VIAL. IV PRN (22:00)
[2018-05-27] MEDS: fentaNYL PF VIAL 100 MCG/2 ML VIAL IV PRN (23:17)
[2018-05-28] VITALS (7 sets, daily range): BP systolic 137–210; BP diastolic 65–95
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
[2018-05-28] MEDS ORDERED: HYDR-2761 PO (00:34)
[2018-05-28] MEDS ORDERED: PREG50CA PO (00:34)
[2018-05-28] MEDS ORDERED: amLODIPine BESYLATE 10 MG TABLET PO ONE (01:30)
[2018-05-28] MEDS: cloNIDine HCL 0.2 MG TABLET PO PRN ×2 (01:46→09:10)
[2018-05-28] MEDS: fentaNYL PF VIAL 100 MCG/2 ML VIAL IV PRN ×4 (01:47→15:01)
[2018-05-28 05:16] LABS: BASO % 1 % (0-3); EOS % 1 % (0-3); HEMATOCRIT 38.4 % (39.0-53.0); HEMOGLOBIN 12.7 g/dL (13.0-17.5); LYMPH # 1.6 x10^3/uL (1.0-4.8); LYMPH % 23 % (24-48); MEAN CORPUSCULAR HEMOGLOBIN 32 pg (25-35); MEAN CORPUSCULAR HGB CONC 33 g/dL (31-37); MEAN CORPUSCULAR VOLUME 96 fL (79-100); MONO # 0.4 x10^3/uL (0.0-1.1); MONO % 6 % (0-9); NEUT # 4.7 x10^3uL (1.8-7.7); NEUT % 69 % (31-73); PLATELET COUNT 293 x10^3/uL (140-400); RED BLOOD COUNT 4.02 x10^6/uL (4.30-5.70); RED CELL DISTRIBUTION WIDTH 14.4 % (11.5-14.5); WHITE BLOOD COUNT 6.8 x10^3/uL (4.0-11.0)
[2018-05-28 06:18] LABS: ALBUMIN 1.4 g/dL (3.4-5.0); ALBUMIN/GLOBULIN RATIO 0.4 (1.0-1.7); CALCIUM 7.9 mg/dL (8.5-10.1); CREATININE 0.8 mg/dL (0.7-1.3); GFR 130.2; POTASSIUM 3.3 mmol/L (3.5-5.1); TOTAL BILIRUBIN 0.3 mg/dL (0.2-1.0); TOTAL PROTEIN 5.2 g/dL (6.4-8.2)
--- NOTE | 2018-05-28 06:42 | EKG ---
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
[2018-05-28 07:49] LABS: BILIRUBIN,URINE SMALL (NEG); NITRITE,URINE NEGATIVE (NEG); PH,URINE 5.5; PROTEIN,URINE >=300 mg/dL (NEG-TRACE); UROBILINOGEN,URINE 0.2 mg/dL (0.2 mg/dL)
[2018-05-28] MEDS: amLODIPine BESYLATE 10 MG TABLET PO SCH (07:52)
[2018-05-28 08:02] LABS: AMORPHOUS SEDIMENT,UR PRESENT /HPF; BACTERIA,URINE MODERATE /HPF (0-FEW); HYALINE CASTS, URINE MODERATE /HPF; SQUAMOUS EPITHELIAL CELL,UR OCC /LPF
[2018-05-28 08:04] LABS: CLARITY,URINE HAZY; COLOR,URINE AMBER
[2018-05-28] MEDS ORDERED: ONDANSETRON PF 4 MG/2 ML VIAL. IV PRN (08:15)
[2018-05-28] MEDS ORDERED: ACETAMINOPHEN/CODEINE 300/30MG TABLET. PO PRN (08:15)
[2018-05-28] MEDS ORDERED: ACETAMINOPHEN 500 MG TABLET PO PRN (08:15)
[2018-05-28 08:59] LABS: CHOLESTEROL/HDL RATIO 5.9
[2018-05-28] MEDS ORDERED: CALCIUM CARBONATE 500 MG TAB.CHEW PO PRN (09:30)
[2018-05-28] MEDS ORDERED: PROCHLORPERAZINE 10 MG/2 ML VIAL. IV PRN (09:30)
[2018-05-28] MEDS ORDERED: hydrALAZINE 20 MG/ML VIAL. IVP PRN (09:45)
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
[2018-05-28] MEDS ORDERED: DICYCLOMINE HCL 10 MG CAPSULE PO PRN (10:15)
--- NOTE | 2018-05-28 10:25 | CARD ---
MR#: [id number] Date of Study: 05/28/2018 Ordering Physician: LC DAMIAN, Referring Physician: BAKARI CONTRERAS Tech: Ivy Castelan RDCS APPROVED REPORT EXAM: Two-dimensional and M-mode echocardiogram with Doppler and color Doppler. Other Information Quality : Good INDICATION Elevated Troponin 2D DIMENSIONS RVDd2.7 (2.9-3.5cm)Left Atrium(2D)3.8 (1.6-4.0cm) IVSd0.9 (0.7-1.1cm)Aortic Root(2D)2.8 (2.0-3.7cm) LVDd6.3 (3.9-5.9cm)LVOT Diameter2.1 (1.8-2.4cm) PWd1.0 (0.7-1.1cm)LVDs4.1 (2.5-4.0cm) FS (%) 34.3 %SV124.7 ml LVEF(%)60.0 (>50%) Aortic Valve AoV Peak Yvan.175.3cm/sAoV VTI36.8cm AO Peak GR.12.3mmHgLVOT Peak Yvan.109.9cm/s AO Mean GR.6mmHgAVA (VMAX)2.26cm2 GERONIMO (VTI)2.30cm2 Mitral Valve MV E Zghfcbuc374.4cm/sMV DECEL NIDS160pf MV A Hnwzwcwo26.9cm/sE/A Ratio1.6 Tricuspid Valve TR P. Bbixejkj865xg/sRAP JWGRSNKR5vyGj TR Peak Gr.63fjLmFPPB38whBg Pulmonary Vein S1 Bldltxay06.6cm/sD2 Fmrtsfht66.6cm/s LEFT VENTRICLE The Left Ventricle is mildly dilated. There is normal left ventricular wall thickness. The left ventr icular systolic function is normal and the ejection fraction is within normal range. The Ejection Fra ction is 55-60%. There is normal LV segmental wall motion. The left ventricular diastolic function an d filling is normal for age. RIGHT VENTRICLE The right ventricle is normal size. The right ventricular systolic function is normal. ATRIA The left atrium size is normal. The right atrium size is normal. The interatrial septum is intact wit h no evidence for an atrial septal defect or patent foramen ovale as noted on 2-D or Doppler imaging. AORTIC VALVE The aortic valve is normal in structure and function. Doppler and Color Flow revealed no significant aortic regurgitation. There is no significant aortic valvular stenosis. MITRAL VALVE The mitral valve is normal in structure and function. There is no evidence of mitral valve prolapse. There is no mitral valve stenosis. Doppler and Color Flow revealed no mitral valve regurgitation note d. TRICUSPID VALVE The tricuspid valve is normal in structure and function. Doppler and Color Flow revealed trace tricus pid regurgitation. The PA pressure was estimated at 28 mmHg. There is no tricuspid valve stenosis. PULMONIC VALVE The pulmonary valve is normal in structure and function. Doppler and Color Flow revealed trace pulmon ic valvular regurgitation. There is no pulmonic valvular stenosis. GREAT VESSELS The aortic root is normal in size. The ascending aorta is normal in size. The IVC is normal in size a nd collapses >50% with inspiration. PERICARDIAL EFFUSION There is no evidence of significant pericardial effusion. Critical Notification Critical Value: No <Conclusion> The left ventricular systolic function is normal and the ejection fraction is within normal range. Th e Ejection Fraction is 55-60%. There is normal LV segmental wall motion. Signed by : Atilio Roberts, Electronically Approved : 05/28/2018 10:24:59
--- NOTE | 2018-05-28 10:26 | PDOC ---
PROGRESS NOTES Chief Complaint Chief Complaint Abdominal pain/epigastric pain Chest pain EKG changes Accelerated hypertension POA Penicillin allergy-hives versus anaphylactic Mild troponin elevation recent colitis transverse colon-CAT scan 05/08/18 History of Present Illness History of Present Illness Continues to have epigastric pain which moves to the chest as he claims Troponin 0.125 then 0.138, then 0.135 Cardiology on board He is supposed to be on PPI and some Carafate at home but he is not taking - EGD within the last yr maybe Known to GI hence I have consulted them Blood pressure high, bradycardic side-hydralazine 10 weeks IV every 4. hrs I have reviewed CAT scan done 05/08/18 when he was here for the same-shows colitis-he did not fill his abx prescription on dc Plan Consult GI Add hydralazine Follow cards and GI recommendations Keep liquid diet for now LEvaquin for the colitis on CT ( and di not fonish abx course - colitis on transverse colon) Pain medicines every 2 hrs Dw RN Vitals Vitals Vital Signs Date Time Temp Pulse Resp B/P (MAP) Pulse Ox O2 Delivery O2 Flow Rate FiO2 05/28/18 09:10 66 186/95 05/28/18 09:00 98.0 18 97 98.0 05/28/18 08:13 Room Air Physical Exam General: Alert, Oriented X3, Cooperative, mild distress, Other (epigastric pain ) Heart: Regular rate, Normal S1, Normal S2 Lungs: Clear Abdomen: Normal bowel sounds, Soft, Other (tenderness epigastric area) Extremities: No clubbing, No cyanosis, No edema, Normal pulses Skin: No rashes, No breakdown, No significant lesion Labs LABS Laboratory Tests Test 05/27/18 19:20 05/28/18 01:10 05/28/18 04:10 05/28/18 07:00 White Blood Count 8.9 x10^3/uL (4.0-11.0) 6.8 x10^3/uL (4.0-11.0) Red Blood Count 4.37 x10^6/uL (4.30-5.70) 4.02 x10^6/uL (4.30-5.70) Hemoglobin 14.4 g/dL (13.0-17.5) 12.7 g/dL (13.0-17.5) Hematocrit 41.3 % (39.0-53.0) 38.4 % (39.0-53.0) Mean Corpuscular Volume 94 fL (79-100) 96 fL (79-100) Mean Corpuscular Hemoglobin 33 pg (25-35) 32 pg (25-35) Mean Corpuscular Hemoglobin Concent 35 g/dL (31-37) 33 g/dL (31-37) Red Cell Distribution Width 14.2 % (11.5-14.5) 14.4 % (11.5-14.5) Platelet Count 357 x10^3/uL (140-400) 293 x10^3/uL (140-400) Neutrophils (%) (Auto) 77 % (31-73) 69 % (31-73) Lymphocytes (%) (Auto) 17 % (24-48) 23 % (24-48) Monocytes (%) (Auto) 6 % (0-9) 6 % (0-9) Eosinophils (%) (Auto) 0 % (0-3) 1 % (0-3) Basophils (%) (Auto) 1 % (0-3) 1 % (0-3) Neutrophils # (Auto) 6.8 x10^3uL (1.8-7.7) 4.7 x10^3uL (1.8-7.7) Lymphocytes # (Auto) 1.5 x10^3/uL (1.0-4.8) 1.6 x10^3/uL (1.0-4.8) Monocytes # (Auto) 0.5 x10^3/uL (0.0-1.1) 0.4 x10^3/uL (0.0-1.1) Eosinophils # (Auto) 0.0 x10^3/uL (0.0-0.7) 0.0 x10^3/uL (0.0-0.7) Basophils # (Auto) 0.1 x10^3/uL (0.0-0.2) 0.0 x10^3/uL (0.0-0.2) Sodium Level 139 mmol/L (136-145) 138 mmol/L (136-145) Potassium Level 3.7 mmol/L (3.5-5.1) 3.3 mmol/L (3.5-5.1) Chloride Level 100 mmol/L (98-107) 101 mmol/L (98-107) Carbon Dioxide Level 29 mmol/L (21-32) 26 mmol/L (21-32) Anion Gap 10 (6-14) 11 (6-14) Blood Urea Nitrogen 7 mg/dL (8-26) 7 mg/dL (8-26) Creatinine 1.1 mg/dL (0.7-1.3) 0.8 mg/dL (0.7-1.3) Estimated GFR (Cockcroft-Gault) 90.2 130.2 BUN/Creatinine Ratio 6 (6-20) 9 (6-20) Glucose Level 223 mg/dL (70-99) 178 mg/dL (70-99) Calcium Level 8.7 mg/dL (8.5-10.1) 7.9 mg/dL (8.5-10.1) Magnesium Level 1.8 mg/dL (1.8-2.4) Total Bilirubin 0.3 mg/dL (0.2-1.0) 0.3 mg/dL (0.2-1.0) Aspartate Amino Transf (AST/SGOT) 14 U/L (15-37) 14 U/L (15-37) Alanine Aminotransferase (ALT/SGPT) 12 U/L (16-63) 9 U/L (16-63) Alkaline Phosphatase 85 U/L (46-116) 65 U/L (46-116) Troponin I Quantitative 0.128 ng/mL (0.000-0.055) 0.135 ng/mL (0.000-0.055) 0.131 ng/mL (0.000-0.055) Total Protein 7.0 g/dL (6.4-8.2) 5.2 g/dL (6.4-8.2) Albumin 1.8 g/dL (3.4-5.0) 1.4 g/dL (3.4-5.0) Albumin/Globulin Ratio 0.3 (1.0-1.7) 0.4 (1.0-1.7) Lipase 43 U/L (73-393) DU-Pre-U-Type Natriuretic Peptide 328 pg/mL (0-124) Triglycerides Level 101 mg/dL (0-150) Cholesterol Level 176 mg/dL (0-200) LDL Cholesterol, Calculated 126 mg/dL (0-100) VLDL Cholesterol, Calculated 20 mg/dL (0-40) Non-HDL Cholesterol Calculated 146 mg/dL (0-129) HDL Cholesterol 30 mg/dL (40-60) Cholesterol/HDL Ratio 5.9 Thyroid Stimulating Hormone (TSH) 0.848 uIU/mL (0.358-3.74) Urine Collection Type Unknown Urine Color Caroline Urine Clarity Hazy Urine pH 5.5 Urine Specific Monarch >=1.030 Urine Protein >=300 mg/dL (NEG-TRACE) Urine Glucose (UA) 250 mg/dL (NEG) Urine Ketones (Stick) 15 mg/dL (NEG) Urine Blood Moderate (NEG) Urine Nitrite Negative (NEG) Urine Bilirubin Small (NEG) Urine Urobilinogen Dipstick 0.2 mg/dL (0.2 mg/dL) Urine Leukocyte Esterase Negative (NEG) Urine RBC 3-5 /HPF (0-2) Urine WBC 5-10 /HPF (0-4) Urine Squamous Epithelial Cells Occ /LPF Urine Amorphous Sediment Present /HPF Urine Bacteria Moderate /HPF (0-FEW) Urine Hyaline Casts Moderate /HPF Review of Systems Review of Systems Abdominal pain, nausea, some emesis, one episode diarrhea, the rest of ROS 14 point negative Comment Review of Relevant I have reviewed the following items shelli (where applicable) has been applied. Labs Laboratory Tests Test 05/27/18 19:20 05/28/18 01:10 05/28/18 04:10 05/28/18 07:00 White Blood Count 8.9 x10^3/uL (4.0-11.0) 6.8 x10^3/uL (4.0-11.0) Red Blood Count 4.37 x10^6/uL (4.30-5.70) 4.02 x10^6/uL (4.30-5.70) Hemoglobin 14.4 g/dL (13.0-17.5) 12.7 g/dL (13.0-17.5) Hematocrit 41.3 % (39.0-53.0) 38.4 % (39.0-53.0) Mean Corpuscular Volume 94 fL (79-100) 96 fL (79-100) Mean Corpuscular Hemoglobin 33 pg (25-35) 32 pg (25-35) Mean Corpuscular Hemoglobin Concent 35 g/dL (31-37) 33 g/dL (31-37) Red Cell Distribution Width 14.2 % (11.5-14.5) 14.4 % (11.5-14.5) Platelet Count 357 x10^3/uL (140-400) 293 x10^3/uL (140-400) Neutrophils (%) (Auto) 77 % (31-73) 69 % (31-73) Lymphocytes (%) (Auto) 17 % (24-48) 23 % (24-48) Monocytes (%) (Auto) 6 % (0-9) 6 % (0-9) Eosinophils (%) (Auto) 0 % (0-3) 1 % (0-3) Basophils (%) (Auto) 1 % (0-3) 1 % (0-3) Neutrophils # (Auto) 6.8 x10^3uL (1.8-7.7) 4.7 x10^3uL (1.8-7.7) Lymphocytes # (Auto) 1.5 x10^3/uL (1.0-4.8) 1.6 x10^3/uL (1.0-4.8) Monocytes # (Auto) 0.5 x10^3/uL (0.0-1.1) 0.4 x10^3/uL (0.0-1.1) Eosinophils # (Auto) 0.0 x10^3/uL (0.0-0.7) 0.0 x10^3/uL (0.0-0.7) Basophils # (Auto) 0.1 x10^3/uL (0.0-0.2) 0.0 x10^3/uL (0.0-0.2) Sodium Level 139 mmol/L (136-145) 138 mmol/L (136-145) Potassium Level 3.7 mmol/L (3.5-5.1) 3.3 mmol/L (3.5-5.1) Chloride Level 100 mmol/L (98-107) 101 mmol/L (98-107) Carbon Dioxide Level 29 mmol/L (21-32) 26 mmol/L (21-32) Anion Gap 10 (6-14) 11 (6-14) Blood Urea Nitrogen 7 mg/dL (8-26) 7 mg/dL (8-26) Creatinine 1.1 mg/dL (0.7-1.3) 0.8 mg/dL (0.7-1.3) Estimated GFR (Cockcroft-Gault) 90.2 130.2 BUN/Creatinine Ratio 6 (6-20) 9 (6-20) Glucose Level 223 mg/dL (70-99) 178 mg/dL (70-99) Calcium Level 8.7 mg/dL (8.5-10.1) 7.9 mg/dL (8.5-10.1) Magnesium Level 1.8 mg/dL (1.8-2.4) Total Bilirubin 0.3 mg/dL (0.2-1.0) 0.3 mg/dL (0.2-1.0) Aspartate Amino Transf (AST/SGOT) 14 U/L (15-37) 14 U/L (15-37) Alanine Aminotransferase (ALT/SGPT) 12 U/L (16-63) 9 U/L (16-63) Alkaline Phosphatase 85 U/L (46-116) 65 U/L (46-116) Troponin I Quantitative 0.128 ng/mL (0.000-0.055) 0.135 ng/mL (0.000-0.055) 0.131 ng/mL (0.000-0.055) Total Protein 7.0 g/dL (6.4-8.2) 5.2 g/dL (6.4-8.2) Albumin 1.8 g/dL (3.4-5.0) 1.4 g/dL (3.4-5.0) Albumin/Globulin Ratio 0.3 (1.0-1.7) 0.4 (1.0-1.7) Lipase 43 U/L (73-393) VH-Uit-S-Type Natriuretic Peptide 328 pg/mL (0-124) Triglycerides Level 101 mg/dL (0-150) Cholesterol Level 176 mg/dL (0-200) LDL Cholesterol, Calculated 126 mg/dL (0-100) VLDL Cholesterol, Calculated 20 mg/dL (0-40) Non-HDL Cholesterol Calculated 146 mg/dL (0-129) HDL Cholesterol 30 mg/dL (40-60) Cholesterol/HDL Ratio 5.9 Thyroid Stimulating Hormone (TSH) 0.848 uIU/mL (0.358-3.74) Urine Collection Type Unknown Urine Color Caroline Urine Clarity Hazy Urine pH 5.5 Urine Specific Monarch >=1.030 Urine Protein >=300 mg/dL (NEG-TRACE) Urine Glucose (UA) 250 mg/dL (NEG) Urine Ketones (Stick) 15 mg/dL (NEG) Urine Blood Moderate (NEG) Urine Nitrite Negative (NEG) Urine Bilirubin Small (NEG) Urine Urobilinogen Dipstick 0.2 mg/dL (0.2 mg/dL) Urine Leukocyte Esterase Negative (NEG) Urine RBC 3-5 /HPF (0-2) Urine WBC 5-10 /HPF (0-4) Urine Squamous Epithelial Cells Occ /LPF Urine Amorphous Sediment Present /HPF Urine Bacteria Moderate /HPF (0-FEW) Urine Hyaline Casts Moderate /HPF Laboratory Tests Test 05/27/18 19:20 05/28/18 01:10 05/28/18 04:10 05/28/18 07:00 White Blood Count 8.9 x10^3/uL (4.0-11.0) 6.8 x10^3/uL (4.0-11.0) Red Blood Count 4.37 x10^6/uL (4.30-5.70) 4.02 x10^6/uL (4.30-5.70) Hemoglobin 14.4 g/dL (13.0-17.5) 12.7 g/dL (13.0-17.5) Hematocrit 41.3 % (39.0-53.0) 38.4 % (39.0-53.0) Mean Corpuscular Volume 94 fL (79-100) 96 fL (79-100) Mean Corpuscular Hemoglobin 33 pg (25-35) 32 pg (25-35) Mean Corpuscular Hemoglobin Concent 35 g/dL (31-37) 33 g/dL (31-37) Red Cell Distribution Width 14.2 % (11.5-14.5) 14.4 % (11.5-14.5) Platelet Count 357 x10^3/uL (140-400) 293 x10^3/uL (140-400) Neutrophils (%) (Auto) 77 % (31-73) 69 % (31-73) Lymphocytes (%) (Auto) 17 % (24-48) 23 % (24-48) Monocytes (%) (Auto) 6 % (0-9) 6 % (0-9) Eosinophils (%) (Auto) 0 % (0-3) 1 % (0-3) Basophils (%) (Auto) 1 % (0-3) 1 % (0-3) Neutrophils # (Auto) 6.8 x10^3uL (1.8-7.7) 4.7 x10^3uL (1.8-7.7) Lymphocytes # (Auto) 1.5 x10^3/uL (1.0-4.8) 1.6 x10^3/uL (1.0-4.8) Monocytes # (Auto) 0.5 x10^3/uL (0.0-1.1) 0.4 x10^3/uL (0.0-1.1) Eosinophils # (Auto) 0.0 x10^3/uL (0.0-0.7) 0.0 x10^3/uL (0.0-0.7) Basophils # (Auto) 0.1 x10^3/uL (0.0-0.2) 0.0 x10^3/uL (0.0-0.2) Sodium Level 139 mmol/L (136-145) 138 mmol/L (136-145) Potassium Level 3.7 mmol/L (3.5-5.1) 3.3 mmol/L (3.5-5.1) Chloride Level 100 mmol/L (98-107) 101 mmol/L (98-107) Carbon Dioxide Level 29 mmol/L (21-32) 26 mmol/L (21-32) Anion Gap 10 (6-14) 11 (6-14) Blood Urea Nitrogen 7 mg/dL (8-26) 7 mg/dL (8-26) Creatinine 1.1 mg/dL (0.7-1.3) 0.8 mg/dL (0.7-1.3) Estimated GFR (Cockcroft-Gault) 90.2 130.2 BUN/Creatinine Ratio 6 (6-20) 9 (6-20) Glucose Level 223 mg/dL (70-99) 178 mg/dL (70-99) Calcium Level 8.7 mg/dL (8.5-10.1) 7.9 mg/dL (8.5-10.1) Magnesium Level 1.8 mg/dL (1.8-2.4) Total Bilirubin 0.3 mg/dL (0.2-1.0) 0.3 mg/dL (0.2-1.0) Aspartate Amino Transf (AST/SGOT) 14 U/L (15-37) 14 U/L (15-37) Alanine Aminotransferase (ALT/SGPT) 12 U/L (16-63) 9 U/L (16-63) Alkaline Phosphatase 85 U/L (46-116) 65 U/L (46-116) Troponin I Quantitative 0.128 ng/mL (0.000-0.055) 0.135 ng/mL (0.000-0.055) 0.131 ng/mL (0.000-0.055) Total Protein 7.0 g/dL (6.4-8.2) 5.2 g/dL (6.4-8.2) Albumin 1.8 g/dL (3.4-5.0) 1.4 g/dL (3.4-5.0) Albumin/Globulin Ratio 0.3 (1.0-1.7) 0.4 (1.0-1.7) Lipase 43 U/L (73-393) BD-Tfk-I-Type Natriuretic Peptide 328 pg/mL (0-124) Triglycerides Level 101 mg/dL (0-150) Cholesterol Level 176 mg/dL (0-200) LDL Cholesterol, Calculated 126 mg/dL (0-100) VLDL Cholesterol, Calculated 20 mg/dL (0-40) Non-HDL Cholesterol Calculated 146 mg/dL (0-129) HDL Cholesterol 30 mg/dL (40-60) Cholesterol/HDL Ratio 5.9 Thyroid Stimulating Hormone (TSH) 0.848 uIU/mL (0.358-3.74) Urine Collection Type Unknown Urine Color Caroline Urine Clarity Hazy Urine pH 5.5 Urine Specific Monarch >=1.030 Urine Protein >=300 mg/dL (NEG-TRACE) Urine Glucose (UA) 250 mg/dL (NEG) Urine Ketones (Stick) 15 mg/dL (NEG) Urine Blood Moderate (NEG) Urine Nitrite Negative (NEG) Urine Bilirubin Small (NEG) Urine Urobilinogen Dipstick 0.2 mg/dL (0.2 mg/dL) Urine Leukocyte Esterase Negative (NEG) Urine RBC 3-5 /HPF (0-2) Urine WBC 5-10 /HPF (0-4) Urine Squamous Epithelial Cells Occ /LPF Urine Amorphous Sediment Present /HPF Urine Bacteria Moderate /HPF (0-FEW) Urine Hyaline Casts Moderate /HPF Medications Current Medications Ondansetron HCl (Zofran) 4 mg 1X ONCE IV Last administered on 05/27/18 20:14; Start 05/27/18 at 19:15; Stop 05/27/18 at 19:29; Status DC Dicyclomine HCl (Bentyl) 20 mg 1X ONCE IM Last administered on 05/27/18 20:22 ; Start 05/27/18 at 19:15; Stop 05/27/18 at 19:31; Status DC Sodium Chloride 1,000 ml @ 1,000 mls/hr 1X ONCE IV Last administered on 19:35; Start 05/27/18 at 19:15; Stop 05/27/18 at 20:14; Status DC Fentanyl Citrate (Fentanyl 2ml Vial) 50 mcg 1X ONCE IV Last administered on 20:20; Start 05/27/18 at 20:15; Stop 05/27/18 at 20:16; Status DC Ondansetron HCl (Zofran) 4 mg PRN Q8HRS PRN IV NAUSEA/VOMITING; Start 05/27/18 at 22:00; Stop 05/28/18 at 08:03; Status DC Fentanyl Citrate (Fentanyl 2ml Vial) 50 mcg PRN Q2HR PRN IV PAIN Last administered on 05/28/18 07:43; Start 05/27/18 at 22:00; Stop 05/28/18 at 21:59 Amlodipine Besylate (Norvasc) 10 mg DAILY PO Last administered on 05/28/18 07: 52; Start 05/28/18 at 09:00 Amlodipine Besylate (Norvasc) 10 mg 1X ONCE PO Last administered on 05/28/18 01:46; Start 05/28/18 at 01:30; Stop 05/28/18 at 01:35; Status DC Clonidine HCl (Catapres) 0.2 mg PRN Q2HR PRN PO HYPERTENSION, SEE COMMENTS Last administered on 05/28/18at 09:10; Start 05/28/18 at 01:15; Stop 05/28/18 at 09: 48; Status DC Ondansetron HCl (Zofran) 4 mg PRN Q6HRS PRN IV NAUSEA/VOMITING; Start 05/28/18 at 08:15 Hydralazine HCl (Apresoline Inj) 10 mg PRN Q4HRS PRN IVP ELEVATED BP, SEE COMMENTS; Start 05/28/18 at 08:15 Acetaminophen (Tylenol) 500 mg PRN Q6HRS PRN PO MILD PAIN / TEMP Last administered on 05/28/18at 09:12; Start 05/28/18 at 08:15 Acetaminophen/ Codeine Phosphate (Tylenol #3) 1 tab PRN Q6HRS PRN PO MODERATE PAIN; Start 05/28/18 at 08:15 Pantoprazole Sodium (Protonix) 40 mg DAILYAC PO ; Start 05/29/18 at 07:30 Pantoprazole Sodium (Protonix) 40 mg 1X ONCE PO ; Start 05/28/18 at 10:30; Stop 05/28/18 at 10:31 Calcium Carbonate/ Glycine (Tums) 500 mg PRN AFTMEALHC PRN PO INDIGESTION; Start 05/28/18 at 09:30 Dicyclomine HCl (Bentyl) 10 mg TID PO ; Start 05/28/18 at 10:30 Levofloxacin (Levaquin) 500 mg DAILY06 PO ; Start 05/29/18 at 06:00 Levofloxacin (Levaquin) 500 mg 1X ONCE PO ; Start 05/28/18 at 10:30; Stop at 10:31 Prochlorperazine Edisylate (Compazine) 10 mg PRN Q6HRS PRN IV NAUSEA/VOMITING; Start 05/28/18 at 09:30 Acetaminophen/ Hydrocodone Bitart (Lortab 5/325) 1 tab PRN Q6HRS PRN PO SEVERE PAIN; Start 05/28/18 at 09:30 Pregabalin (Lyrica) 50 mg TID PO ; Start 05/28/18 at 10:30 Lisinopril (Prinivil) 10 mg DAILY PO ; Start 05/28/18 at 10:30; Stop 05/28/18 at 10:30; Status DC Metformin HCl (Glucophage) 500 mg BIDWMEALS PO ; Start 05/28/18 at 10:30 Sucralfate (Carafate) 1 gm QIDACHS PO ; Start 05/28/18 at 11:30 Lisinopril (Prinivil) 20 mg DAILY PO ; Start 05/29/18 at 09:00 Aspirin (Ecotrin) 81 mg DAILYWBKFT PO ; Start 05/28/18 at 11:00 Atorvastatin Calcium (Lipitor) 20 mg QHS PO ; Start 05/28/18 at 21:00 Chlorthalidone (Thalitone) 25 mg DAILY PO ; Start 05/28/18 at 11:00 Hydralazine HCl (Apresoline Inj) 10 mg PRN Q4HRS PRN IVP ELEVATED BP, SEE COMMENTS; Start 05/28/18 at 09:45 Lisinopril (Prinivil) 10 mg 1X ONCE PO ; Start 05/28/18 at 11:00; Stop 05/28/18 at 11:01 Multi-Ingredient Mouthwash/Gargle (Gi Cocktail) 20 ml PRN QID PRN PO abd PAIN; Start 05/28/18 at 10:15 Dicyclomine HCl (Bentyl) 10 mg PRN QID PRN PO abd pain; Start 05/28/18 at 10:15 Active Scripts Active Ondansetron Odt (Ondansetron) 4 Mg Tab.rapdis 1 Tab PO PRN Q6-8HRS Carafate (Sucralfate) 1 Gm Tablet 1 Gm PO QIDACHS 30 Days [Pantoprazole] 40 MG Tablet.dr 40 Mg PO DAILY 30 Days Metformin Hcl 500 Mg Tablet 500 Mg PO BIDWMEALS Bentyl (Dicyclomine Hcl) 10 Mg Capsule 1 Cap PO TID Reported Hydrocodone-Apap 5-325 (Hydrocodone Bit/Acetaminophen) 1 Tab Tablet 1 Tab PO PRN Q6HRS PRN Lyrica (Pregabalin) 50 Mg Capsule 50 Mg PO TID Lisinopril 5 Mg Tablet 2 Tab PO DAILY Vitals/I & O Vital Sign - Last 24 Hours 4/805/27/18 05/27/18 05/27/18 11:45 19:00 19:10 20:00 Temp 98.0 98.4 98.0 98.4 Pulse 63 59 57 54 Resp 20 16 16 B/P (MAP) 206/102 (136) 225/103 (143) 225/103 (143) 226/99 (141) Pulse Ox 98 97 99 O2 Delivery Room Air Room Air Room Air 05/27/18 05/27/18 05/27/18 05/27/18 20:20 21:00 22:00 23:00 Pulse 50 56 53 Resp 16 16 16 16 B/P (MAP) 193/86 (121) 190/93 (125) 190/79 (116) Pulse Ox 100 100 100 100 O2 Delivery Room Air Room Air Room Air Room Air 05/27/18 05/28/18 05/28/18 05/28/18 23:17 01:46 01:46 02:42 Temp 98.3 98.3 Pulse 60 60 64 Resp 16 18 B/P (MAP) 206/102 206/102 210/95 (133) Pulse Ox 100 96 O2 Delivery Room Air Room Air 05/28/18 05/28/18 05/28/18 05/28/18 04:14 07:00 07:43 07:52 Temp 98.0 98.0 Pulse 55 55 Resp 18 B/P (MAP) 194/92 (126) 194/92 Pulse Ox 96 97 O2 Delivery Room Air 05/28/18 05/28/18 05/28/18 05/28/18 08:00 08:13 09:00 09:10 Temp 98.0 98.0 Pulse 55 66 Resp 18 B/P (MAP) 194/92 (126) 186/95 Pulse Ox 97 O2 Delivery Room Air Room Air Intake and Output 05/27/18 05/27/18 05/28/18 15:00 23:00 07:00 Intake Total 1000 ml 900 ml Balance 1000 ml 900 ml HOMER GALLO MD May 28, 2018 10:26
[2018-05-28] MEDS ORDERED: PANTOPRAZOLE 40 MG TABLET.DR. PO ONE (10:30)
[2018-05-28] MEDS ORDERED: LISINOPRIL 10 MG TABLET PO SCH (10:30)
[2018-05-28] MEDS: ASPIRIN ENTERIC COATED 81 MG TABLET.DR. PO SCH (10:31)
[2018-05-28] MEDS: CHLORTHALIDONE 25 MG TABLET. PO SCH (10:32)
[2018-05-28] MEDS: PREGABALIN 50 MG CAPSULE PO SCH ×3 (10:32→19:56)
[2018-05-28 10:33] LABS: BARBITURATES NEG (NEG); BENZODIAZEPINES NEG (NEG); CANNABINOIDS POS (NEG); COCAINE NEG (NEG); METHADONE NEG (NEG); OPIATES NEG (NEG); PHENCYCLIDINE NEG (NEG)
[2018-05-28] MEDS: metFORMIN 500 MG TABLET PO SCH ×2 (10:33→17:35)
[2018-05-28 10:34] LABS: AMPHETAMINE/METHAMPHETAMINE NEG (NEG)
[2018-05-28] MEDS: DICYCLOMINE HCL 10 MG CAPSULE PO SCH ×3 (10:35→19:57)
--- NOTE | 2018-05-28 10:40 | EKG ---
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
[2018-05-28] MEDS ORDERED: LISINOPRIL 10 MG TABLET PO ONE (11:00)
[2018-05-28] MEDS: SUCRALFATE 1 GM TABLET. PO SCH ×3 (11:30→19:57)
[2018-05-28] MEDS: HYDROcodone/APAP 5/325MG 1 TAB TABLET PO PRN ×2 (11:50→19:33)
--- NOTE | 2018-05-28 13:58 | NUR ---
SS following for discharge planning. SS reviewed pt chart. Pt is from home with spouse and is currently on room air. No discharge needs noted at this time. SS will continue to follow for pending discharge needs.
[2018-05-28] MEDS ORDERED: DEXTROSE 50% 25 GM / 50ML DISP.SYRIN. IV PRN (19:45)
[2018-05-28] MEDS ORDERED: ATORVASTATIN CALCIUM 20 MG TABLET PO SCH (21:00)
[2018-05-28] MEDS: LIDO:MAALOX 1:1 20 ML SINGLE DOSE. PO PRN (23:12)
[2018-05-28] MEDS: hydrALAZINE 20 MG/ML VIAL. IVP PRN (23:27)
[2018-05-29] MEDS: HYDROcodone/APAP 5/325MG 1 TAB TABLET PO PRN ×3 (02:00→13:58)
[2018-05-29 03:20] VITALS: BP 165/77
[2018-05-29 07:00] VITALS: BP 178/81
[2018-05-29] MEDS: SUCRALFATE 1 GM TABLET. PO SCH ×2 (07:30→13:09)
[2018-05-29] MEDS ORDERED: PANTOPRAZOLE 40 MG TABLET.DR. PO SCH (07:30)
[2018-05-29 08:51] LABS: CALCIUM 8.3 mg/dL (8.5-10.1); CREATININE 0.9 mg/dL (0.7-1.3); GFR 113.7; POTASSIUM 3.3 mmol/L (3.5-5.1)
[2018-05-29] MEDS ORDERED: LISINOPRIL 20 MG TABLET PO SCH ×2 (09:00)
[2018-05-29] MEDS: amLODIPine BESYLATE 10 MG TABLET PO SCH (09:32)
--- NOTE | 2018-05-29 09:34 | PDOC ---
CARDIO Progress Notes Date and Time Date of Service 05/29/2018 Time of Evaluation 0920 Subjective Subjective: No Chest Pain, No shortness of breath, No Palpitations, Other ( still having nausea and abd pain) Vitals Vitals Vital Signs Date Time Temp Pulse Resp B/P (MAP) Pulse Ox O2 Delivery O2 Flow Rate FiO2 05/29/18 08:06 16 98 Room Air 05/29/18 07:00 97.6 58 178/81 (113) 97.6 Weight Weight [ ] Input and Output Intake and Output Intake and Output 05/29/18 07:00 Intake Total 310 ml Output Total 1225 ml Balance -915 ml Intake Oral 310 ml Output Urine Total 1225 ml # Voids 2 # Bowel Movements 2 Laboratory Labs Laboratory Tests Test 05/28/18 10:30 05/28/18 19:54 05/29/18 07:45 05/29/18 08:20 Troponin I Quantitative 0.119 ng/mL (0.000-0.055) Glucose (Fingerstick) 244 mg/dL (70-99) 181 mg/dL (70-99) Sodium Level 138 mmol/L (136-145) Potassium Level 3.3 mmol/L (3.5-5.1) Chloride Level 101 mmol/L (98-107) Carbon Dioxide Level 28 mmol/L (21-32) Anion Gap 9 (6-14) Blood Urea Nitrogen 7 mg/dL (8-26) Creatinine 0.9 mg/dL (0.7-1.3) Estimated GFR (Cockcroft-Gault) 113.7 Glucose Level 191 mg/dL (70-99) Calcium Level 8.3 mg/dL (8.5-10.1) Physical Exam HEENT: Neck Supple W Full Motion Chest: Symmetric LUNGS: Clear to Auscultation Heart: S1S2, RRR (SR) Abdomen: Soft N/T Extremities: No Edema, No Calf Tenderness Neurology: alert, oriented, follow commands Assessment Assessment 1. Abdominal pain with colitis: gastric emptying study and sono due today per GI 2. Elevated troponin; mild elevation peaked at 0.135, likely type 2 induced by # 3. EF and WM nml. no CP 3. Accelerated HTN: peaked at 225/103. Noted labile episodes at noc. 4. DM2/DLP: not on goal 5. Episodes of Asymptomatic SB: no home BB but got started on clonidine as inpt. 6. Syncope: occurred about 2 weeks unclear etiology, no signs of seizure per description. Possibly vasovagal 7. Noncompliance: ran out of BP med, uncontrolled BG. 8. Atypical CP: no [place]. pain comes from abd then lower sternal region. 9. Tobaccoism Recommendations 1. Nml [facility] 09/2016. Renal duplex today to be coordinated with gastric emptying study 2. ASA, statin. Replace K. Will add additional lisinopril at hs. Continue chlorthalidone and norvasc. Hydralazine IV PRN. DC clonidine 3. Consider for outpt event monitor. Will consider for stress test as an outpt 5. Smoking cessation. Discussed treatment compliance. LC DAMIAN ON[facility] May 29, 2018 09:34
--- NOTE | 2018-05-29 09:39 | NUR ---
Per Candice in [facility], hold bentyl, as many meds as possible for the 4 hours the procedure takes. Pt was given Bentyl at 0500, not to be given until after testing. Also given lisinopril and amlodipine at request of cardiology for elevated BP.
[2018-05-29] MEDS ORDERED: POTASSIUM CHLORIDE 20 MEQ TABLET.ER. PO ONE (10:00)
--- NOTE | 2018-05-29 10:34 | RAD ---
Examination: Ultrasound renal duplex HISTORY: History of persistent hypertension COMPARISON: None available. FINDINGS: The right kidney measures 14.6 x 6.4 x 6.9 cm. The left kidney measures 13.6 x 7.0 x 5.3 cm. The velocity in the mid right renal artery measures 134 cm/s and in the distal right renal artery measures 111 cm/s. The velocity in the left mid renal artery measures 131 cm/s and in the distal left renal artery measures 94 cm/s. The proximal right and left renal arteries could not be visualized due to bowel gas. The velocity measures 101 cm/s. The right renal artery to aorta velocity ratio is 1.3 and in the left renal artery to aorta velocity ratio is 1.3. The bilateral renal veins are patent. IMPRESSION: 1. No evidence of hemodynamically significant stenosis. Electronically signed by: Herrera Chavira MD (05/29/2018 10:32 AM) [id number]
--- NOTE | 2018-05-29 10:50 | PDOC ---
Subjective: Subjective: Just back from [facility]. Still has abd pain, says "they're checking my pancreas." "Couldn't" eat yesterday, liquid stools (stable). Objective: Objective: D/w RN - doesn't c/o pain until staff walks in the room, was tolerating PO as far as she knows. Vital Signs: Vital Signs Date Time Temp Pulse Resp B/P (MAP) Pulse Ox O2 Delivery O2 Flow Rate FiO2 05/29/18 09:32 58 178/81 05/29/18 08:06 16 98 Room Air 05/29/18 07:00 97.6 97.6 Labs: Laboratory Tests Test 05/28/18 19:54 05/29/18 07:45 Glucose (Fingerstick) 244 mg/dL (70-99) 181 mg/dL (70-99) Imaging: [facility] 05/29 pending Renal Artery Duplex IMPRESSION: 1. No evidence of hemodynamically significant stenosis. PE: GEN: NAD, getting back in bed from wheelchair LUNGS: room air NEURO/PSYCH: A & O 3 A/P: Chronic/recurrent abd pain, anorexia -h/o GERD, ulcers, non-compliance Irregular bowel habits - stable HTN, DM, +marijuana -- Await [facility], also plans for [facility]. Continue PPI. JONNATHAN ROJAS May 29, 2018 10:50
--- NOTE | 2018-05-29 11:04 | PDOC ---
PROGRESS NOTES Chief Complaint Chief Complaint Abdominal pain/epigastric pain, Gastroparesis? Uncontrolled diabetes mellitus type 2 secondary to dietary transgressions and non adherence to treatment plan Dyslipidemia Chest pain secondary to uncontrolled essential hypertension, EKG changes Accelerated hypertension POA Penicillin allergy-hives versus anaphylactic Mild troponin elevation recent colitis transverse colon-CAT scan 05/08/18 Marihuana use, counseling done. Plan Consult GI Add hydralazine Follow cards and GI recommendations Keep liquid diet for now Levaquin for the colitis on CT ( and di not fonish abx course - colitis on transverse colon) History of Present Illness History of Present Illness Patient still complaining of epigastric pain with radiation to the retrosternal area. The patient had gastric empty study done this morning first part will continue with second point later in the day. On my evaluation patient does not seem to be in major distress unlikely his chest discomfort is due to cardiac events nevertheless will follow recommendations from cardiology Vitals Vitals Vital Signs Date Time Temp Pulse Resp B/P (MAP) Pulse Ox O2 Delivery O2 Flow Rate FiO2 05/29/18 09:32 58 178/81 05/29/18 08:06 16 98 Room Air 05/29/18 07:00 97.6 97.6 Physical Exam General: Alert, Oriented X3, Cooperative, No acute distress Heart: Regular rate (SR), Normal S1, Normal S2, Other (3/6 systolic murmur to LLS border) Lungs: Clear Abdomen: Other (diffuse abd tenderness) Extremities: No cyanosis, No edema Skin: No breakdown, No significant lesion Labs LABS Laboratory Tests Test 05/28/18 19:54 05/29/18 07:45 05/29/18 08:20 Glucose (Fingerstick) 244 mg/dL (70-99) 181 mg/dL (70-99) Sodium Level 138 mmol/L (136-145) Potassium Level 3.3 mmol/L (3.5-5.1) Chloride Level 101 mmol/L (98-107) Carbon Dioxide Level 28 mmol/L (21-32) Anion Gap 9 (6-14) Blood Urea Nitrogen 7 mg/dL (8-26) Creatinine 0.9 mg/dL (0.7-1.3) Estimated GFR (Cockcroft-Gault) 113.7 Glucose Level 191 mg/dL (70-99) Calcium Level 8.3 mg/dL (8.5-10.1) Review of Systems Review of Systems Pertinent as per history of present illness otherwise 14 point review of system is negative Comment Review of Relevant I have reviewed the following items shelli (where applicable) has been applied. Labs Laboratory Tests Test 05/27/18 19:20 05/28/18 01:10 05/28/18 04:10 05/28/18 07:00 White Blood Count 8.9 x10^3/uL (4.0-11.0) 6.8 x10^3/uL (4.0-11.0) Red Blood Count 4.37 x10^6/uL (4.30-5.70) 4.02 x10^6/uL (4.30-5.70) Hemoglobin 14.4 g/dL (13.0-17.5) 12.7 g/dL (13.0-17.5) Hematocrit 41.3 % (39.0-53.0) 38.4 % (39.0-53.0) Mean Corpuscular Volume 94 fL (79-100) 96 fL (79-100) Mean Corpuscular Hemoglobin 33 pg (25-35) 32 pg (25-35) Mean Corpuscular Hemoglobin Concent 35 g/dL (31-37) 33 g/dL (31-37) Red Cell Distribution Width 14.2 % (11.5-14.5) 14.4 % (11.5-14.5) Platelet Count 357 x10^3/uL (140-400) 293 x10^3/uL (140-400) Neutrophils (%) (Auto) 77 % (31-73) 69 % (31-73) Lymphocytes (%) (Auto) 17 % (24-48) 23 % (24-48) Monocytes (%) (Auto) 6 % (0-9) 6 % (0-9) Eosinophils (%) (Auto) 0 % (0-3) 1 % (0-3) Basophils (%) (Auto) 1 % (0-3) 1 % (0-3) Neutrophils # (Auto) 6.8 x10^3uL (1.8-7.7) 4.7 x10^3uL (1.8-7.7) Lymphocytes # (Auto) 1.5 x10^3/uL (1.0-4.8) 1.6 x10^3/uL (1.0-4.8) Monocytes # (Auto) 0.5 x10^3/uL (0.0-1.1) 0.4 x10^3/uL (0.0-1.1) Eosinophils # (Auto) 0.0 x10^3/uL (0.0-0.7) 0.0 x10^3/uL (0.0-0.7) Basophils # (Auto) 0.1 x10^3/uL (0.0-0.2) 0.0 x10^3/uL (0.0-0.2) Sodium Level 139 mmol/L (136-145) 138 mmol/L (136-145) Potassium Level 3.7 mmol/L (3.5-5.1) 3.3 mmol/L (3.5-5.1) Chloride Level 100 mmol/L (98-107) 101 mmol/L (98-107) Carbon Dioxide Level 29 mmol/L (21-32) 26 mmol/L (21-32) Anion Gap 10 (6-14) 11 (6-14) Blood Urea Nitrogen 7 mg/dL (8-26) 7 mg/dL (8-26) Creatinine 1.1 mg/dL (0.7-1.3) 0.8 mg/dL (0.7-1.3) Estimated GFR (Cockcroft-Gault) 90.2 130.2 BUN/Creatinine Ratio 6 (6-20) 9 (6-20) Glucose Level 223 mg/dL (70-99) 178 mg/dL (70-99) Calcium Level 8.7 mg/dL (8.5-10.1) 7.9 mg/dL (8.5-10.1) Magnesium Level 1.8 mg/dL (1.8-2.4) Total Bilirubin 0.3 mg/dL (0.2-1.0) 0.3 mg/dL (0.2-1.0) Aspartate Amino Transf (AST/SGOT) 14 U/L (15-37) 14 U/L (15-37) Alanine Aminotransferase (ALT/SGPT) 12 U/L (16-63) 9 U/L (16-63) Alkaline Phosphatase 85 U/L (46-116) 65 U/L (46-116) Troponin I Quantitative 0.128 ng/mL (0.000-0.055) 0.135 ng/mL (0.000-0.055) 0.131 ng/mL (0.000-0.055) Total Protein 7.0 g/dL (6.4-8.2) 5.2 g/dL (6.4-8.2) Albumin 1.8 g/dL (3.4-5.0) 1.4 g/dL (3.4-5.0) Albumin/Globulin Ratio 0.3 (1.0-1.7) 0.4 (1.0-1.7) Lipase 43 U/L (73-393) YE-Ies-W-Type Natriuretic Peptide 328 pg/mL (0-124) Triglycerides Level 101 mg/dL (0-150) Cholesterol Level 176 mg/dL (0-200) LDL Cholesterol, Calculated 126 mg/dL (0-100) VLDL Cholesterol, Calculated 20 mg/dL (0-40) Non-HDL Cholesterol Calculated 146 mg/dL (0-129) HDL Cholesterol 30 mg/dL (40-60) Cholesterol/HDL Ratio 5.9 Thyroid Stimulating Hormone (TSH) 0.848 uIU/mL (0.358-3.74) Urine Collection Type Unknown Urine Color [place] Urine Clarity Hazy Urine pH 5.5 Urine Specific [place] >=1.030 Urine Protein >=300 mg/dL (NEG-TRACE) Urine Glucose (UA) 250 mg/dL (NEG) Urine Ketones (Stick) 15 mg/dL (NEG) Urine Blood Moderate (NEG) Urine Nitrite Negative (NEG) Urine Bilirubin Small (NEG) Urine Urobilinogen Dipstick 0.2 mg/dL (0.2 mg/dL) Urine Leukocyte Esterase Negative (NEG) Urine RBC 3-5 /HPF (0-2) Urine WBC 5-10 /HPF (0-4) Urine Squamous Epithelial Cells Occ /LPF Urine Amorphous Sediment Present /HPF Urine Bacteria Moderate /HPF (0-FEW) Urine Hyaline Casts Moderate /HPF Urine Opiates Screen Neg (NEG) Urine Methadone Screen Neg (NEG) Urine Barbiturates Neg (NEG) Urine Phencyclidine Screen Neg (NEG) Urine Amphetamine/Methamphetamine Neg (NEG) Urine Benzodiazepines Screen Neg (NEG) Urine Cocaine Screen Neg (NEG) Urine Cannabinoids Screen Pos (NEG) Urine Ethyl Alcohol Neg (NEG) Test 05/28/18 10:30 05/28/18 19:54 05/29/18 07:45 05/29/18 08:20 Troponin I Quantitative 0.119 ng/mL (0.000-0.055) Glucose (Fingerstick) 244 mg/dL (70-99) 181 mg/dL (70-99) Sodium Level 138 mmol/L (136-145) Potassium Level 3.3 mmol/L (3.5-5.1) Chloride Level 101 mmol/L (98-107) Carbon Dioxide Level 28 mmol/L (21-32) Anion Gap 9 (6-14) Blood Urea Nitrogen 7 mg/dL (8-26) Creatinine 0.9 mg/dL (0.7-1.3) Estimated GFR (Cockcroft-Gault) 113.7 Glucose Level 191 mg/dL (70-99) Calcium Level 8.3 mg/dL (8.5-10.1) Laboratory Tests Test 05/28/18 19:54 05/29/18 07:45 05/29/18 08:20 Glucose (Fingerstick) 244 mg/dL (70-99) 181 mg/dL (70-99) Sodium Level 138 mmol/L (136-145) Potassium Level 3.3 mmol/L (3.5-5.1) Chloride Level 101 mmol/L (98-107) Carbon Dioxide Level 28 mmol/L (21-32) Anion Gap 9 (6-14) Blood Urea Nitrogen 7 mg/dL (8-26) Creatinine 0.9 mg/dL (0.7-1.3) Estimated GFR (Cockcroft-Gault) 113.7 Glucose Level 191 mg/dL (70-99) Calcium Level 8.3 mg/dL (8.5-10.1) Medications Current Medications Ondansetron HCl (Zofran) 4 mg 1X ONCE IV Last administered on 05/27/18at 20:14; Start 05/27/18 at 19:15; Stop 05/27/18 at 19:29; Status DC Dicyclomine HCl (Bentyl) 20 mg 1X ONCE IM Last administered on 05/27/18at 20:22 ; Start 05/27/18 at 19:15; Stop 05/27/18 at 19:31; Status DC Sodium Chloride 1,000 ml @ 1,000 mls/hr 1X ONCE IV Last administered on at 19:35; Start 05/27/18 at 19:15; Stop 05/27/18 at 20:14; Status DC Fentanyl Citrate (Fentanyl 2ml Vial) 50 mcg 1X ONCE IV Last administered on 05/27/18at 20:20; Start 05/27/18 at 20:15; Stop 05/27/18 at 20:16; Status DC Ondansetron HCl (Zofran) 4 mg PRN Q8HRS PRN IV NAUSEA/VOMITING; Start 05/27/18 at 22:00; Stop 05/28/18 at 08:03; Status DC Fentanyl Citrate (Fentanyl 2ml Vial) 50 mcg PRN Q2HR PRN IV PAIN Last administered on 05/28/18 15:01; Start 05/27/18 at 22:00; Stop 05/28/18 at 21:59; Status DC Amlodipine Besylate (Norvasc) 10 mg DAILY PO Last administered on 05/29/18at 09: 32; Start 05/28/18 at 09:00 Amlodipine Besylate (Norvasc) 10 mg 1X ONCE PO Last administered on 05/28/18 01:46; Start 05/28/18 at 01:30; Stop 05/28/18 at 01:35; Status DC Clonidine HCl (Catapres) 0.2 mg PRN Q2HR PRN PO HYPERTENSION, SEE COMMENTS Last administered on 05/28/18 09:10; Start 05/28/18 at 01:15; Stop 05/28/18 at 09: 48; Status DC Ondansetron HCl (Zofran) 4 mg PRN Q6HRS PRN IV NAUSEA/VOMITING; Start 05/28/18 at 08:15 Hydralazine HCl (Apresoline Inj) 10 mg PRN Q4HRS PRN IVP ELEVATED BP, SEE COMMENTS Last administered on 05/28/18at 23:27; Start 05/28/18 at 08:15 Acetaminophen (Tylenol) 500 mg PRN Q6HRS PRN PO MILD PAIN / TEMP Last administered on 05/28/18at 09:12; Start 05/28/18 at 08:15 Acetaminophen/ Codeine Phosphate (Tylenol #3) 1 tab PRN Q6HRS PRN PO MODERATE PAIN Last administered on 05/29/18at 05:07; Start 05/28/18 at 08:15 Pantoprazole Sodium (Protonix) 40 mg DAILYAC PO ; Start 05/29/18 at 07:30 Pantoprazole Sodium (Protonix) 40 mg 1X ONCE PO Last administered on 05/28/18 10:34; Start 05/28/18 at 10:30; Stop 05/28/18 at 10:31; Status DC Calcium Carbonate/ Glycine (Tums) 500 mg PRN AFTMEALHC PRN PO INDIGESTION; Start 05/28/18 at 09:30 Dicyclomine HCl (Bentyl) 10 mg TID PO Last administered on 05/28/18 19:57; Start 05/28/18 at 10:30 Levofloxacin (Levaquin) 500 mg DAILY06 PO ; Start 05/29/18 at 06:00; Stop at 06:00; Status DC Levofloxacin (Levaquin) 500 mg 1X ONCE PO Last administered on 05/28/18at 10:35 ; Start 05/28/18 at 10:30; Stop 05/28/18 at 10:31; Status DC Prochlorperazine Edisylate (Compazine) 10 mg PRN Q6HRS PRN IV NAUSEA/VOMITING; Start 05/28/18 at 09:30 Acetaminophen/ Hydrocodone Bitart (Lortab 5/325) 1 tab PRN Q6HRS PRN PO SEVERE PAIN Last administered on 05/29/18at 08:06; Start 05/28/18 at 09:30 Pregabalin (Lyrica) 50 mg TID PO Last administered on 05/28/18 19:56; Start 05/28/18 at 10:30 Lisinopril (Prinivil) 10 mg DAILY PO ; Start 05/28/18 at 10:30; Stop 05/28/18 at 10:30; Status DC Metformin HCl (Glucophage) 500 mg BIDWMEALS PO Last administered on 05/28/18at 17 :35; Start 05/28/18 at 10:30 Sucralfate (Carafate) 1 gm QIDACHS PO Last administered on 4/9/19at 19:57; Start 05/28/18 at 11:30 Lisinopril (Prinivil) 20 mg DAILY PO ; Start 05/29/18 at 09:00; Stop 05/29/18 at 09:00; Status DC Aspirin (Ecotrin) 81 mg DAILYWBKFT PO Last administered on 05/28/18at 10:31; Start 05/28/18 at 11:00 Atorvastatin Calcium (Lipitor) 20 mg QHS PO Last administered on 05/28/18at 19:57 ; Start 05/28/18 at 21:00 Chlorthalidone (Thalitone) 25 mg DAILY PO Last administered on 05/28/18at 10:32; Start 05/28/18 at 11:00 Hydralazine HCl (Apresoline Inj) 10 mg PRN Q4HRS PRN IVP ELEVATED BP, SEE COMMENTS; Start 05/28/18 at 09:45 Lisinopril (Prinivil) 10 mg 1X ONCE PO Last administered on 05/28/18at 10:34; Start 05/28/18 at 11:00; Stop 05/28/18 at 11:01; Status DC Multi-Ingredient Mouthwash/Gargle (Gi Cocktail) 20 ml PRN QID PRN PO abd PAIN Last administered on 05/28/18at 23:12; Start 05/28/18 at 10:15 Dicyclomine HCl (Bentyl) 10 mg PRN QID PRN PO abd pain Last administered on 12/07at 05:10; Start 05/28/18 at 10:15 Dextrose (Dextrose 50%-Water Syringe) 12.5 gm PRN Q15MIN PRN IV SEE COMMENTS; Start 05/28/18 at 19:45 Lisinopril (Prinivil) 20 mg BID PO Last administered on 05/29/18at 09:32; Start 05/29/18 at 09:00 Potassium Chloride (Klor-Con) 40 meq 1X ONCE PO ; Start 05/29/18 at 10:00; Stop 05/29/18 at 10:01; Status DC Active Scripts Active Ondansetron Odt (Ondansetron) 4 Mg Tab.rapdis 1 Tab PO PRN Q6-8HRS Carafate (Sucralfate) 1 Gm Tablet 1 Gm PO QIDACHS 30 Days [Pantoprazole] 40 MG Tablet.dr 40 Mg PO DAILY 30 Days Metformin Hcl 500 Mg Tablet 500 Mg PO BIDWMEALS Bentyl (Dicyclomine Hcl) 10 Mg Capsule 1 Cap PO TID Reported Hydrocodone-Apap 5-325 (Hydrocodone Bit/Acetaminophen) 1 Tab Tablet 1 Tab PO PRN Q6HRS PRN Lyrica (Pregabalin) 50 Mg Capsule 50 Mg PO TID Lisinopril 5 Mg Tablet 2 Tab PO DAILY Vitals/I & O Vital Sign - Last 24 Hours 05/28/18 05/28/18 05/28/18 05/28/18 11:00 11:50 12:50 14:29 Temp 97.7 98.3 97.7 98.3 Pulse 55 61 Resp 18 18 B/P (MAP) 148/71 (96) 137/65 (89) Pulse Ox 100 99 O2 Delivery Room Air Room Air 05/28/18 05/28/18 05/28/18 05/28/18 15:01 15:31 19:27 19:33 Temp 98.1 98.1 Pulse 64 Resp 17 B/P (MAP) 154/71 (98) Pulse Ox 98 O2 Delivery Room Air Room Air Room Air Room Air 05/28/18 05/28/18 05/28/18 05/29/18 19:49 23:10 23:27 02:00 Temp 98.1 98.1 Pulse 73 58 Resp 16 B/P (MAP) 188/89 (122) 188/89 Pulse Ox 97 O2 Delivery Room Air Room Air Room Air 05/29/18 05/29/18 05/29/18 05/29/18 03:20 05:07 07:00 08:00 Temp 98.0 97.6 98.0 97.6 Pulse 61 58 Resp 16 17 B/P (MAP) 165/77 (106) 178/81 (113) Pulse Ox 98 99 O2 Delivery Room Air Room Air Room Air Room Air 05/29/18 05/29/18 05/29/18 08:06 09:32 09:32 Pulse 58 58 Resp 16 B/P (MAP) 178/81 178/81 Pulse Ox 98 O2 Delivery Room Air Intake and Output 05/28/18 05/28/18 05/29/18 15:00 23:00 07:00 Intake Total 250 ml 60 ml Output Total 325 ml 900 ml Balance -75 ml -840 ml SHEILA BONILLA MD May 29, 2018 11:04
[2018-05-29] MEDS: metFORMIN 500 MG TABLET PO SCH (12:17)
[2018-05-29] MEDS: DICYCLOMINE HCL 10 MG CAPSULE PO SCH ×2 (13:09→13:22)
[2018-05-29] MEDS: PREGABALIN 50 MG CAPSULE PO SCH ×2 (13:09→13:23)
[2018-05-29] MEDS: ASPIRIN ENTERIC COATED 81 MG TABLET.DR. PO SCH (13:10)
[2018-05-29] MEDS: CHLORTHALIDONE 25 MG TABLET. PO SCH (13:10)
[2018-05-29] MEDS: LIDO:MAALOX 1:1 20 ML SINGLE DOSE. PO PRN (13:10)
[2018-05-29 13:19] VITALS: BP 176/85
[2018-05-29] MEDS: hydrALAZINE 20 MG/ML VIAL. IVP PRN (13:19)
--- NOTE | 2018-05-29 13:23 | NUR ---
Pt's AM meds and PRNs given at this time, scanned and saved as AM dose, 1400 bentyl and lyrica non-admin, as both medication just given under AM meds. Additionally, pt's BP elevated at 176/85, PRN 10mg IVP hydralazine given at this time as well.
--- NOTE | 2018-05-29 13:31 | RAD ---
Examination: GASTRIC EMPTYING STUDY History: abdomen pain,nausea, vomit, diarrhea off and on for 1 year but worse in the last 3 days. Patient only able to eat egg and drink 3 ounces of water. 2.1mCi Tc99m Sulfur Colloid. Stopped scan at 3 hours since stomach was not visualized anymore Comparison/Correlation: None Findings: Gastric emptying study was performed in anterior and posterior projections. 2.1 mCi technetium 9M sulfur colloid was provided in an egg and 3 ounces of water. Patient was not able to consume greater than that quantity. Gastric retention at 1 hour is 7 percent. At 2 hours, it is 1 percent. It is 0 percent at 3 hours. T1/2 is 36 minutes. Transit of radiotracer within small bowel is somewhat accelerated. Impression: No delay of gastric emptying identified. Accelerated transit of radiotracer through the stomach noted. Electronically signed by: eJthro Richardson MD (05/29/2018 1:28 PM) [facility]
[2018-05-29] MEDS ORDERED: AMLO10TA8 PO (15:14)
[2018-05-29] MEDS ORDERED: Pantoprazole PO (15:14)
[2018-05-29] MEDS ORDERED: ATOR20TA58 PO (15:14)
[2018-05-29] MEDS ORDERED: LISI-130 PO (15:14)
[2018-05-29] MEDS ORDERED: ASPI-612 PO (15:14)
[2018-05-29] MEDS ORDERED: CHLO25TA10 PO (15:14)
[2018-05-29] MEDS ORDERED: CALC200T23 PO (15:14)
--- NOTE | 2018-05-29 16:13 | PDOC3 ---
Discharge Summary Visit Information Date of Admission: May 28, 2018 Date of Discharge: May 29, 2018 Admitting Diagnosis: Abdominal pain, chest pain with elevated troponin and E Final Diagnosis Abdominal pain/epigastric pain, Gastroparesis? Uncontrolled diabetes mellitus type 2 secondary to dietary transgressions and non adherence to treatment plan Dyslipidemia Chest pain secondary to uncontrolled essential hypertension, EKG changes Accelerated hypertension POA Penicillin allergy-hives versus anaphylactic Mild troponin elevation recent colitis transverse colon-CAT scan 05/08/18 Marihuana use, counseling done. Brief Hospital Course Allergies Allergies Coded Allergies Type Severity Reaction Last Updated Verified Penicillins Allergy Intermediate Hives 05/19/17 Yes ibuprofen Allergy Intermediate Hives 05/19/17 Yes Vital Signs Vital Signs Date Time Temp Pulse Resp B/P (MAP) Pulse Ox O2 Delivery O2 Flow Rate FiO2 05/29/18 14:58 98 Room Air 05/29/18 13:58 18 05/29/18 13:19 62 176/85 05/29/18 07:00 97.6 97.6 Lab Results Laboratory Tests Test 05/27/18 19:20 05/28/18 01:10 05/28/18 04:10 05/28/18 07:00 White Blood Count 8.9 x10^3/uL (4.0-11.0) 6.8 x10^3/uL (4.0-11.0) Red Blood Count 4.37 x10^6/uL (4.30-5.70) 4.02 x10^6/uL (4.30-5.70) Hemoglobin 14.4 g/dL (13.0-17.5) 12.7 g/dL (13.0-17.5) Hematocrit 41.3 % (39.0-53.0) 38.4 % (39.0-53.0) Mean Corpuscular Volume 94 fL (79-100) 96 fL (79-100) Mean Corpuscular Hemoglobin 33 pg (25-35) 32 pg (25-35) Mean Corpuscular Hemoglobin Concent 35 g/dL (31-37) 33 g/dL (31-37) Red Cell Distribution Width 14.2 % (11.5-14.5) 14.4 % (11.5-14.5) Platelet Count 357 x10^3/uL (140-400) 293 x10^3/uL (140-400) Neutrophils (%) (Auto) 77 % (31-73) 69 % (31-73) Lymphocytes (%) (Auto) 17 % (24-48) 23 % (24-48) Monocytes (%) (Auto) 6 % (0-9) 6 % (0-9) Eosinophils (%) (Auto) 0 % (0-3) 1 % (0-3) Basophils (%) (Auto) 1 % (0-3) 1 % (0-3) Neutrophils # (Auto) 6.8 x10^3uL (1.8-7.7) 4.7 x10^3uL (1.8-7.7) Lymphocytes # (Auto) 1.5 x10^3/uL (1.0-4.8) 1.6 x10^3/uL (1.0-4.8) Monocytes # (Auto) 0.5 x10^3/uL (0.0-1.1) 0.4 x10^3/uL (0.0-1.1) Eosinophils # (Auto) 0.0 x10^3/uL (0.0-0.7) 0.0 x10^3/uL (0.0-0.7) Basophils # (Auto) 0.1 x10^3/uL (0.0-0.2) 0.0 x10^3/uL (0.0-0.2) Sodium Level 139 mmol/L (136-145) 138 mmol/L (136-145) Potassium Level 3.7 mmol/L (3.5-5.1) 3.3 mmol/L (3.5-5.1) Chloride Level 100 mmol/L (98-107) 101 mmol/L (98-107) Carbon Dioxide Level 29 mmol/L (21-32) 26 mmol/L (21-32) Anion Gap 10 (6-14) 11 (6-14) Blood Urea Nitrogen 7 mg/dL (8-26) 7 mg/dL (8-26) Creatinine 1.1 mg/dL (0.7-1.3) 0.8 mg/dL (0.7-1.3) Estimated GFR (Cockcroft-Gault) 90.2 130.2 BUN/Creatinine Ratio 6 (6-20) 9 (6-20) Glucose Level 223 mg/dL (70-99) 178 mg/dL (70-99) Calcium Level 8.7 mg/dL (8.5-10.1) 7.9 mg/dL (8.5-10.1) Magnesium Level 1.8 mg/dL (1.8-2.4) Total Bilirubin 0.3 mg/dL (0.2-1.0) 0.3 mg/dL (0.2-1.0) Aspartate Amino Transf (AST/SGOT) 14 U/L (15-37) 14 U/L (15-37) Alanine Aminotransferase (ALT/SGPT) 12 U/L (16-63) 9 U/L (16-63) Alkaline Phosphatase 85 U/L (46-116) 65 U/L (46-116) Troponin I Quantitative 0.128 ng/mL (0.000-0.055) 0.135 ng/mL (0.000-0.055) 0.131 ng/mL (0.000-0.055) Total Protein 7.0 g/dL (6.4-8.2) 5.2 g/dL (6.4-8.2) Albumin 1.8 g/dL (3.4-5.0) 1.4 g/dL (3.4-5.0) Albumin/Globulin Ratio 0.3 (1.0-1.7) 0.4 (1.0-1.7) Lipase 43 U/L (73-393) NZ-Vwf-Z-Type Natriuretic Peptide 328 pg/mL (0-124) Triglycerides Level 101 mg/dL (0-150) Cholesterol Level 176 mg/dL (0-200) LDL Cholesterol, Calculated 126 mg/dL (0-100) VLDL Cholesterol, Calculated 20 mg/dL (0-40) Non-HDL Cholesterol Calculated 146 mg/dL (0-129) HDL Cholesterol 30 mg/dL (40-60) Cholesterol/HDL Ratio 5.9 Thyroid Stimulating Hormone (TSH) 0.848 uIU/mL (0.358-3.74) Urine Collection Type Unknown Urine Color Caroline Urine Clarity Hazy Urine pH 5.5 Urine Specific [place] >=1.030 Urine Protein >=300 mg/dL (NEG-TRACE) Urine Glucose (UA) 250 mg/dL (NEG) Urine Ketones (Stick) 15 mg/dL (NEG) Urine Blood Moderate (NEG) Urine Nitrite Negative (NEG) Urine Bilirubin Small (NEG) Urine Urobilinogen Dipstick 0.2 mg/dL (0.2 mg/dL) Urine Leukocyte Esterase Negative (NEG) Urine RBC 3-5 /HPF (0-2) Urine WBC 5-10 /HPF (0-4) Urine Squamous Epithelial Cells Occ /LPF Urine Amorphous Sediment Present /HPF Urine Bacteria Moderate /HPF (0-FEW) Urine Hyaline Casts Moderate /HPF Urine Opiates Screen Neg (NEG) Urine Methadone Screen Neg (NEG) Urine Barbiturates Neg (NEG) Urine Phencyclidine Screen Neg (NEG) Urine Amphetamine/Methamphetamine Neg (NEG) Urine Benzodiazepines Screen Neg (NEG) Urine Cocaine Screen Neg (NEG) Urine Cannabinoids Screen Pos (NEG) Urine Ethyl Alcohol Neg (NEG) Test 05/28/18 10:30 05/28/18 19:54 05/29/18 07:45 05/29/18 08:20 Troponin I Quantitative 0.119 ng/mL (0.000-0.055) Glucose (Fingerstick) 244 mg/dL (70-99) 181 mg/dL (70-99) Sodium Level 138 mmol/L (136-145) Potassium Level 3.3 mmol/L (3.5-5.1) Chloride Level 101 mmol/L (98-107) Carbon Dioxide Level 28 mmol/L (21-32) Anion Gap 9 (6-14) Blood Urea Nitrogen 7 mg/dL (8-26) Creatinine 0.9 mg/dL (0.7-1.3) Estimated GFR (Cockcroft-Gault) 113.7 Glucose Level 191 mg/dL (70-99) Calcium Level 8.3 mg/dL (8.5-10.1) Test 05/29/18 12:12 Glucose (Fingerstick) 203 mg/dL (70-99) Laboratory Tests Test 05/28/18 19:54 05/29/18 07:45 05/29/18 08:20 05/29/18 12:12 Glucose (Fingerstick) 244 mg/dL (70-99) 181 mg/dL (70-99) 203 mg/dL (70-99) Sodium Level 138 mmol/L (136-145) Potassium Level 3.3 mmol/L (3.5-5.1) Chloride Level 101 mmol/L (98-107) Carbon Dioxide Level 28 mmol/L (21-32) Anion Gap 9 (6-14) Blood Urea Nitrogen 7 mg/dL (8-26) Creatinine 0.9 mg/dL (0.7-1.3) Estimated GFR (Cockcroft-Gault) 113.7 Glucose Level 191 mg/dL (70-99) Calcium Level 8.3 mg/dL (8.5-10.1) Brief Hospital Course Mr. Troncoso is a 37 old male who presented with the above mentioned diagnosis. Patient has a long-standing history of nonadherence to medications. As very poorly controlled hypertension diabetes evaluated from the cardiological standpoint of view with echocardiogram which did not reveal abnormalities that could point to a cardiological etiology for his chest discomfort. GI evaluated the patient since this most likely is related to peptic ulcer disease given the epigastric discomfort with retrosternal radiation. Poorly controlled diabetes. Also give him motility problems with gastroparesis and discomfort neck and sometimes be confused with chest pain. The patient did not percent hemodynamic instability he was deemed appropriate from the cardiological standpoint of view to be dismissed. He had a gastric emptying study today no evidence off delay and there was accelerated transit of the radiotracer through the stomach. GI has recommended an upper GI series which can be done in the a.m. in the outpatient setting. His marijuana habit was discussed and I have recommended him to abstain from it since sometimes he can get his symptoms after he has smoked marijuana. He will be given prescriptions as recommended by our cardiology logical gis consultant for better hypertensive control he will continue with his diabetes management in the outpatient setting with metformin. He does not have currently a primary care physician and I have encourage him to establish care sooner rather than later. Signs and symptoms of alarm were discussed prior to discharge all of his concerns were addressed to the best of my abilities Discharge Information Condition at Discharge: Improved Follow Up: Weeks Disposition/Orders: D/C to Home Scheduled Amlodipine Besylate (Amlodipine Besylate) 10 Mg Tablet, 10 MG PO DAILY for htn for 30 Days, #30 Prescribed by: SHEILA BONILLA MD on 05/29/18 1609 Aspirin (Aspirin Ec) 81 Mg Tablet.dr 81 MG PO DAILYWBKFT for antplatelet for 30 Days, #30 Prescribed by: SHEILA BONILLA MD on 05/29/18 1514 Atorvastatin Calcium (Atorvastatin Calcium) 20 Mg Tablet, 20 MG PO QHS for dyslipidemia for 30 Days, #30 Prescribed by: SHEILA BONILLA MD on 05/29/18 1514 Chlorthalidone (Chlorthalidone ) 25 Mg Tablet, 25 MG PO DAILY for HTN for 30 Days, #30 Prescribed by: SHEILA BONILLA MD on 05/29/18 1514 Dicyclomine Hcl (Bentyl) 10 Mg Capsule, 1 CAP PO TID, #30 Prescribed by: JOSE BARRAGAN APRN on 08/08/16 0108 Last Action: HELD on 05/28/18925 by HOMER GALLO Lisinopril (Lisinopril) 40 Mg Tablet, 20 MG PO BID for HTN for 30 Days, #30 Prescribed by: SHEILA BONILLA MD on 05/29/18 1514 Metformin Hcl (Metformin Hcl) 500 Mg Tablet, 500 MG PO BIDWMEALS for ANTI- DIABETIC, #60 Ref 2 Prescribed by: WANDER KIRKPATRICK on 11/11/171255 Last Action: Converted on 05/28/18925 by HOMER GALLO Ondansetron (Ondansetron Odt) 4 Mg Tab.rapdis, 1 TAB PO PRN Q6-8HRS for nausea, #16 Prescribed by: TUNG BORJAS APRN on 04/12/18 1203 Last Action: Reviewed on 05/28/18925 by HOMER GALLO Pregabalin (Lyrica) 50 Mg Capsule, 50 MG PO TID for NEUROPATHY, (Reported) Entered as Reported by: Lana Montelongo on 05/28/18 0034 Last Action: Continued on 05/28/18925 by HOMER GALLO Sucralfate (Carafate) 1 Gm Tablet, 1 GM PO QIDACHS for 30 Days, #120 Prescribed by: WANDER KIRKPATRICK on 11/11/171255 Last Action: Converted on 05/28/18925 by HOMER GALLO [Pantoprazole] 40 MG TABLET.DR, 40 MG PO DAILY for 30 Days, #30 Ref 2 Prescribed by: WANDER KIRKPATRICK on 11/11/171255 Last Action: HELD on 05/28/18925 by HOMER GALLO [Pantoprazole] 40 MG TABLET.DR, 40 MG PO DAILYAC for PUD for 30 Days, #30 Prescribed by: SHEILA BONILLA MD on 05/29/184 Scheduled PRN Calcium Carbonate (Calcium Carbonate) 200 Mg Tab.chew, 500 MG PO PRN AFTMEALHC PRN for INDIGESTION for 30 Days, #30 Prescribed by: SHEILA BONILLA MD on 05/29/18 1514 Hydrocodone Bit/Acetaminophen (Hydrocodone-Apap 5-325 ) 1 Tab Tablet, 1 TAB PO PRN Q6HRS PRN for PAIN, Ref 0 (Reported) Entered as Reported by: Lana Montelongo on 05/28/18 0034 Last Action: Continued on 05/28/18925 by HOMER GALLO Discontinued Medications Lisinopril (Lisinopril) 5 Mg Tablet, 2 TAB PO DAILY for htn, #30 Ref 5 (Reported ) Entered as Reported by: YANET BAUER on 05/10/181718 Last Action: Converted on 05/28/18925 by SHEILA HWANG MD May 29, 2018 16:13
--- NOTE | 2018-05-29 16:13 | NUR ---
Discharge Note: BYRON WOMACK Discharge instructions and discharge home medications reviewed with Patient and a copy given. All questions have been answered and understanding verbalized. The following instructions and handouts were given: Abdominal pain, Troponin. Discontinued lines and drains: peripheral IV line discontinued, no bleeding or bruising, catheter tip intact. Patient discharged to home for self-care, pt to return 4@0845 for the rest of his testing for SBS. To see Dr. Smalls 07/02@2:45pm.
[2018-06-06] MEDS ORDERED: amLODIPine BESYLATE 10 MG TABLET PO STA (17:37)
[2018-06-06] MEDS ORDERED: CHLORTHALIDONE 25 MG TABLET. PO STA (17:37)
[2018-06-06] MEDS ORDERED: PANTOPRAZOLE 40 MG TABLET.DR. PO STA (17:37)
[2018-06-06] MEDS ORDERED: LISINOPRIL 20 MG TABLET PO STA (17:37)
[2018-06-06] MEDS ORDERED: LIDO:MAALOX 1:1 20 ML SINGLE DOSE. SWSW ONE (17:45)
[2018-06-06] MEDS ORDERED: ACETAMINOPHEN 500 MG TABLET PO ONE (17:45)
== END 2018-05-29 18:09 | disposition home or self-care (01) | DRG 383 ==
LOC: ER 18:27 → 2 SOUTH 20:30
PROVIDERS: ADMIT Internal Medicine; ATTEND Internal Medicine
DX: K27.9 Peptic ulcer, site unspecified, unspecified as acute or chronic, without hemorrhage or perforation (principal); E43 Unspecified severe protein-calorie malnutrition; I24.8 Other forms of acute ischemic heart disease; K52.9 Noninfective gastroenteritis and colitis, unspecified; K21.9 Gastro-esophageal reflux disease without esophagitis; E11.43 Type 2 diabetes mellitus with diabetic autonomic (poly)neuropathy; E11.65 Type 2 diabetes mellitus with hyperglycemia; E78.5 Hyperlipidemia, unspecified; F12.90 Cannabis use, unspecified, uncomplicated; F17.210 Nicotine dependence, cigarettes, uncomplicated; I10 Essential (primary) hypertension; K31.84 Gastroparesis; Z82.49 Family history of ischemic heart disease and other diseases of the circulatory system; Z91.14 Patient's other noncompliance with medication regimen; Z87.11 Personal history of peptic ulcer disease; Z91.19 Patient's noncompliance with other medical treatment and regimen; F41.9 Anxiety disorder, unspecified; G89.29 Other chronic pain; Z79.4 Long term (current) use of insulin
CPT/HCPCS: 36415; 76770; 78264; 80048; 80053; 80061; 80307; 81001; 82962; 83690; 83735; 83880; 84443; 84484; 85025; 87086; 93005; 93306; 96361; 96372; 96374; 96375; 99406; A9537; A9541; J0360; J0500; J2405; J3010; J7030; 99285-25

== ENCOUNTER 2018-06-06 16:49 | Emergency (ER) | payer MEDICARE ==
[~2018-06-06] VITALS: Ht 182.9 cm; Wt 95.3 kg
[~2018-06-06 16:49] MED LIST changes: +ASPI-612 PO; +ATOR20TA58 PO; +CALC200T23 PO; +CHLO25TA10 PO; +LISI-130 PO
[2018-06-06] MEDS ORDERED: LISINOPRIL 20 MG TABLET PO STA (17:45)
[2018-06-06] MEDS ORDERED: CHLORTHALIDONE 25 MG TABLET. PO STA ×2 (17:45)
[2018-06-06] MEDS ORDERED: LIDO:MAALOX 1:1 20 ML SINGLE DOSE. SWSW STA (17:45)
[2018-06-06] MEDS ORDERED: LISINOPRIL 10 MG TABLET PO STA (17:45)
[2018-06-06] MEDS ORDERED: amLODIPine BESYLATE 5 MG TABLET PO STA (17:45)
[2018-06-06] MEDS ORDERED: amLODIPine BESYLATE 10 MG TABLET PO STA (17:45)
[2018-06-06] MEDS ORDERED: PANTOPRAZOLE 40 MG TABLET.DR. PO STA ×2 (17:45)
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
[2018-06-06] MEDS ORDERED: LIDO:MAALOX 1:1 20 ML SINGLE DOSE. SWSW ONE (18:00)
[2018-06-06] MEDS ORDERED: ACETAMINOPHEN 500 MG TABLET PO ONE (18:00)
[2018-06-06 18:17] LABS: BASO # 0.1 x10^3/uL (0.0-0.2); BASO % 1 % (0-3); EOS % 0 % (0-3); HEMATOCRIT 45.8 % (39.0-53.0); HEMOGLOBIN 15.7 g/dL (13.0-17.5); LYMPH # 1.6 x10^3/uL (1.0-4.8); LYMPH % 15 % (24-48); MEAN CORPUSCULAR HEMOGLOBIN 32 pg (25-35); MEAN CORPUSCULAR HGB CONC 34 g/dL (31-37); MEAN CORPUSCULAR VOLUME 94 fL (79-100); MONO # 0.4 x10^3/uL (0.0-1.1); MONO % 3 % (0-9); NEUT # 8.7 x10^3uL (1.8-7.7); NEUT % 81 % (31-73); PLATELET COUNT 453 x10^3/uL (140-400); RED BLOOD COUNT 4.86 x10^6/uL (4.30-5.70); RED CELL DISTRIBUTION WIDTH 13.9 % (11.5-14.5); WHITE BLOOD COUNT 10.7 x10^3/uL (4.0-11.0)
[2018-06-06 18:24] LABS: CALCIUM 10.8 mg/dL (8.5-10.1); GFR 100.7; POTASSIUM 3.3 mmol/L (3.5-5.1)
[2018-06-06 18:30] LABS: ALBUMIN 2.5 g/dL (3.4-5.0); ALBUMIN/GLOBULIN RATIO 0.5 (1.0-1.7); TOTAL BILIRUBIN 0.4 mg/dL (0.2-1.0); TOTAL PROTEIN 7.7 g/dL (6.4-8.2)
[2018-06-06] MEDS ORDERED: metFORMIN 500 MG TABLET PO STA (18:46)
[2018-06-06 19:06] VITALS: BP 165/93
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
== END 2018-06-06 19:10 | disposition home or self-care (01) ==
LOC: ER 16:49
DX: G89.29 Other chronic pain (principal); R10.33 Periumbilical pain; R19.7 Diarrhea, unspecified; E11.9 Type 2 diabetes mellitus without complications; K21.9 Gastro-esophageal reflux disease without esophagitis; I10 Essential (primary) hypertension; Z90.49 Acquired absence of other specified parts of digestive tract; Z88.0 Allergy status to penicillin; Z88.8 Allergy status to other drugs, medicaments and biological substances
CPT/HCPCS: 36415; 74022; 80053; 83690; 85025; 99285-25

== ENCOUNTER 2018-06-12 09:11 | Emergency (ER) | payer MEDICARE ==
[~2018-06-12] VITALS: Ht 185.4 cm; Wt 99.3 kg
[2018-06-12 09:21] VITALS: BP 190/85
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
--- NOTE | 2018-06-12 10:05 | RAD ---
3 view study of the left hand Clinical indications: Patient dropped an object onto left hand yesterday. Pain and swelling of the left hand. FINDINGS: There is a comminuted fracture of the distal metaphysis of the fourth metacarpal bone which is nondisplaced with mild posterior angulation of the apex of the fracture. There is a nondisplaced fracture of the proximal metaphysis and epiphysis of the third metacarpal bone. There is a mild deformity of the proximal metaphysis of the fifth metacarpal bone as seen in the oblique view. This is consistent with a fracture and may be old since no radiolucent fracture line is seen. Correlation with clinical history is recommended. No dislocation or lytic process is evident. IMPRESSION: Acute post traumatic fractures of the third and fourth metacarpal bones. Deformity of the proximal fifth metacarpal bone consistent with an old healed fracture. If there is no history of such a fracture, then the finding may reflect nondisplaced acute fracture of the proximal fifth metacarpal bone. Electronically signed by: Calos Patino MD (06/12/2018 10:02 AM) [id number]
[2018-06-12] MEDS ORDERED: HYDR-3164 PO (10:40)
[2018-06-12] MEDS ORDERED: HYDROcodone/APAP 5/325MG 1 TAB TABLET PO ONE (10:45)
== END 2018-06-12 11:22 | disposition home or self-care (01) ==
LOC: ER 09:11
DX: S62.397A Other fracture of fifth metacarpal bone, left hand, initial encounter for closed fracture (principal); E11.9 Type 2 diabetes mellitus without complications; K21.9 Gastro-esophageal reflux disease without esophagitis; I10 Essential (primary) hypertension; G89.29 Other chronic pain; Z88.0 Allergy status to penicillin; Z88.6 Allergy status to analgesic agent; Z90.49 Acquired absence of other specified parts of digestive tract; W20.8XXA Other cause of strike by thrown, projected or falling object, initial encounter; Y93.89 Activity, other specified; Y92.89 Other specified places as the place of occurrence of the external cause; Y99.8 Other external cause status
CPT/HCPCS: 29125; 73130; 99284

== ENCOUNTER 2018-06-25 12:06 | Emergency (ER) | payer MEDICARE ==
[~2018-06-25] VITALS: Ht 185.4 cm; Wt 95.3 kg
[2018-06-25] MEDS ORDERED: ONDANSETRON PF 4 MG/2 ML VIAL. IV ONE (14:00)
[2018-06-25] MEDS ORDERED: fentaNYL PF VIAL 100 MCG/2 ML VIAL IV ONE (14:00)
[2018-06-25] MEDS ORDERED: IV NORMAL SALINE 1000ML BAG 1,000 ML IV ONE (14:00)
[2018-06-25] MEDS ORDERED: methylPREDNISolone SOD SUCC PF 125 MG/2 ML VIAL. IV ONE (14:00)
[2018-06-25 14:04] LABS: BASO # 0.1 x10^3/uL (0.0-0.2); BASO % 1 % (0-3); EOS # 0.1 x10^3/uL (0.0-0.7); EOS % 1 % (0-3); HEMOGLOBIN 14.7 g/dL (13.0-17.5); LYMPH # 1.8 x10^3/uL (1.0-4.8); LYMPH % 14 % (24-48); MEAN CORPUSCULAR HEMOGLOBIN 32 pg (25-35); MEAN CORPUSCULAR HGB CONC 34 g/dL (31-37); MEAN CORPUSCULAR VOLUME 95 fL (79-100); MONO # 0.6 x10^3/uL (0.0-1.1); MONO % 5 % (0-9); NEUT # 10.1 x10^3uL (1.8-7.7); NEUT % 79 % (31-73); PLATELET COUNT 374 x10^3/uL (140-400); RED BLOOD COUNT 4.56 x10^6/uL (4.30-5.70); RED CELL DISTRIBUTION WIDTH 13.9 % (11.5-14.5); WHITE BLOOD COUNT 12.7 x10^3/uL (4.0-11.0)
[2018-06-25 14:18] LABS: CALCIUM 9.4 mg/dL (8.5-10.1); CREATININE 1.2 mg/dL (0.7-1.3); GFR 81.6; POTASSIUM 3.7 mmol/L (3.5-5.1)
[2018-06-25 14:25] LABS: ALBUMIN 3.1 g/dL (3.4-5.0); ALBUMIN/GLOBULIN RATIO 0.6 (1.0-1.7); TOTAL BILIRUBIN 0.3 mg/dL (0.2-1.0); TOTAL PROTEIN 8.7 g/dL (6.4-8.2)
[2018-06-25] MEDS ORDERED: ACETAMINOPHEN 325 MG TABLET. PO ONE (15:15)
[2018-06-25] MEDS ORDERED: ONDA4TAB12 PO (15:42)
[2018-06-25] MEDS ORDERED: CLIN150C14 PO (15:42)
[2018-06-25] MEDS ORDERED: CHLO15MO2 PO (15:42)
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
[2018-06-25 15:52] LABS: BILIRUBIN,URINE NEGATIVE (NEG); CLARITY,URINE CLEAR; COLOR,URINE YELLOW; NITRITE,URINE NEGATIVE (NEG); PROTEIN,URINE >=300 mg/dL (NEG-TRACE); UROBILINOGEN,URINE 0.2 mg/dL (0.2 mg/dL)
[2018-06-25 15:57] LABS: SQUAMOUS EPITHELIAL CELL,UR FEW /LPF
[2018-06-25 16:00] VITALS: BP 177/89
[2018-06-25 16:00] LABS: HYALINE CASTS, URINE FEW /HPF
[2018-06-25 16:05] LABS: BACTERIA,URINE MODERATE /HPF (0-FEW)
== END 2018-06-25 16:45 | disposition home or self-care (01) ==
LOC: ER 12:06
DX: G89.29 Other chronic pain (principal); R10.11 Right upper quadrant pain; K08.89 Other specified disorders of teeth and supporting structures; R42 Dizziness and giddiness; E11.9 Type 2 diabetes mellitus without complications; I10 Essential (primary) hypertension; K21.9 Gastro-esophageal reflux disease without esophagitis; Z90.49 Acquired absence of other specified parts of digestive tract; Z88.0 Allergy status to penicillin; Z88.8 Allergy status to other drugs, medicaments and biological substances
CPT/HCPCS: 36415; 80053; 81001; 83605; 83690; 85025; 87040; 87086; 96361; 96374; 96375; 99284; J2405; J2930; J3010; J7030

== ENCOUNTER 2018-09-27 20:06 | Emergency (ER) | payer MEDICARE ==
[~2018-09-27] VITALS: Ht 185.4 cm; Wt 95.3 kg
[~2018-09-27 20:06] MED LIST changes: +CHLO15MO2 PO; +CLIN150C14 PO; -PANT40TA3 PO; +PANT40TA77 PO
[2018-09-27 20:48] LABS: BILIRUBIN,URINE SMALL (NEG); CLARITY,URINE CLOUDY; COLOR,URINE AMBER; NITRITE,URINE NEGATIVE (NEG); PH,URINE 5.5; PROTEIN,URINE >=300 mg/dL (NEG-TRACE)
[2018-09-27 20:58] LABS: BASO % 1 % (0-3); EOS # 0.1 x10^3/uL (0.0-0.7); EOS % 1 % (0-3); HEMATOCRIT 40.2 % (39.0-53.0); HEMOGLOBIN 13.9 g/dL (13.0-17.5); LYMPH # 1.4 x10^3/uL (1.0-4.8); LYMPH % 18 % (24-48); MEAN CORPUSCULAR HEMOGLOBIN 34 pg (25-35); MEAN CORPUSCULAR HGB CONC 35 g/dL (31-37); MEAN CORPUSCULAR VOLUME 98 fL (79-100); MONO # 0.4 x10^3/uL (0.0-1.1); MONO % 5 % (0-9); NEUT # 6.1 x10^3/uL (1.8-7.7); NEUT % 76 % (31-73); PLATELET COUNT 295 x10^3/uL (140-400); RED CELL DISTRIBUTION WIDTH 13.6 % (11.5-14.5)
[2018-09-27] MEDS ORDERED: ONDANSETRON PF 4 MG/2 ML VIAL. IV ONE (21:00)
[2018-09-27] MEDS ORDERED: IV NORMAL SALINE 1000ML BAG 1,000 ML IV ONE (21:00)
[2018-09-27] MEDS ORDERED: FAMOTIDINE 20 MG/2 ML VIAL IVP ONE (21:00)
[2018-09-27 21:03] LABS: AMORPHOUS SEDIMENT,UR PRESENT /HPF; BACTERIA,URINE MODERATE /HPF (0-FEW); GRANULAR CASTS,URINE FEW /HPF; HYALINE CASTS, URINE FEW /HPF; SQUAMOUS EPITHELIAL CELL,UR MOD /LPF
[2018-09-27 21:05] LABS: PROTHROMBIN TIME PATIENT 12.9 SEC (11.7-14.0)
[2018-09-27 21:24] LABS: ALBUMIN 2.4 g/dL (3.4-5.0); ALBUMIN/GLOBULIN RATIO 0.6 (1.0-1.7); CALCIUM 8.5 mg/dL (8.5-10.1); CREATININE 1.1 mg/dL (0.7-1.3); GFR 89.7; MAGNESIUM 1.6 mg/dL (1.8-2.4); POTASSIUM 3.8 mmol/L (3.5-5.1); TOTAL BILIRUBIN 0.6 mg/dL (0.2-1.0); TOTAL PROTEIN 6.1 g/dL (6.4-8.2)
[2018-09-27] MEDS ORDERED: CONTRAST GIVEN. MC PRN (21:30)
[2018-09-27] MEDS ORDERED: IOHEXOL 300 MG/ML 100ML VIAL. IV ONE (21:30)
[2018-09-27] MEDS ORDERED: fentaNYL PF VIAL 100 MCG/2 ML VIAL IV ONE (21:45)
--- NOTE | 2018-09-27 22:08 | RAD ---
PQRS Compliance Statement: One or more of the following individualized dose reduction techniques were utilized for this examination: 1. Automated exposure control 2. Adjustment of the mA and/or kV according to patient size 3. Use of iterative reconstruction technique CT abdomen/pelvis with contrast 09/27/2018 9:16 PM INDICATION: Abdominal pain COMPARISON: May 10, 2018 CT abdomen/pelvis TECHNIQUE: Multiple axial CT images of the abdomen and pelvis were obtained after the intravenous administration of 75 mL Omnipaque 300. Coronal and sagittal reformats are provided. FINDINGS: Bases are clear. Heart size within normal limits. Bilateral gynecomastia. The liver, spleen, right adrenal gland and pancreas are normal in appearance. There is fusiform thickening of the left adrenal gland which appears stable. Gallbladder surgically absent. Portal venous system is patent. Mild intrahepatic and extra hepatic biliary ductal dilatation may be secondary to reservoir effect status post cholecystectomy. The abdominal aorta is normal in course and caliber. There are no pathologically enlarged lymph nodes in the abdomen and pelvis. There is no abdominal free fluid. There is no free intraperitoneal air. Small fat-containing umbilical hernia. Small and large bowel are normal in caliber. There is no evidence for bowel obstruction. There are no pericolonic inflammatory changes. A normal, nondilated appendix is visualized without adjacent inflammatory changes. The kidneys enhance symmetrically. There is no suspicious renal mass. There is no hydronephrosis. There are no suspected calculi within the kidneys, ureters or urinary bladder. 5 mm hypodense lesion in the medial superior pole left kidney is statistically favored represent simple cyst. Urinary bladder is within normal limits given degree of distention. No suspicious pelvic mass. No suspicious osseous abnormality is identified. IMPRESSION: No acute abnormality is identified in abdomen and pelvis. Electronically signed by: Karissa Mckeon MD (09/27/2018 10:05 PM) [facility]
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
[2018-09-27] MEDS ORDERED: ONDA4TAB12 PO (22:29)
[2018-09-27] MEDS ORDERED: FAMO-63 PO (22:29)
[2018-09-27] MEDS ORDERED: HYOS0.1265 SL (22:29)
[2018-09-27 23:00] VITALS: BP 153/78
--- NOTE | 2018-10-02 13:44 | NUR ---
Late entry made to Medical Record. IV Stop time transcribed from eMAR to IV spreadsheet
== END 2018-09-27 23:05 | disposition home or self-care (01) ==
LOC: ER 20:06
DX: R10.13 Epigastric pain (principal); R10.32 Left lower quadrant pain; R11.2 Nausea with vomiting, unspecified; R19.7 Diarrhea, unspecified; E11.9 Type 2 diabetes mellitus without complications; I10 Essential (primary) hypertension; K21.9 Gastro-esophageal reflux disease without esophagitis; G89.29 Other chronic pain; Z90.49 Acquired absence of other specified parts of digestive tract; Z88.0 Allergy status to penicillin; Z88.6 Allergy status to analgesic agent
CPT/HCPCS: 36415; 74177; 80053; 81001; 83605; 83690; 83735; 85025; 85610; 85730; 87086; 96361; 96374; 96375; 99285; J2405; J3010; J3490; J7030; Q9967

== ENCOUNTER 2018-10-02 07:54 | Emergency (ER) | payer MEDICARE ==
[~2018-10-02] VITALS: Ht 185.4 cm; Wt 96.6 kg
[~2018-10-02 07:54] MED LIST changes: +FAMO-63 PO; +HYOS0.1265 SL
[2018-10-02] MEDS ORDERED: IV NORMAL SALINE 1000ML BAG 1,000 ML IV SCH (08:08)
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
[2018-10-02] MEDS ORDERED: HALOPERIDOL LACTATE 5 MG/ML VIAL. IVP ONE (08:15)
[2018-10-02] MEDS ORDERED: LIDO:MAALOX 1:1 20 ML SINGLE DOSE. SWSW ONE (08:15)
[2018-10-02 08:17] LABS: BASO # 0.1 x10^3/uL (0.0-0.2); BASO % 1 % (0-3); EOS # 0.1 x10^3/uL (0.0-0.7); EOS % 1 % (0-3); LYMPH # 2.2 x10^3/uL (1.0-4.8); LYMPH % 23 % (24-48); MEAN CORPUSCULAR HEMOGLOBIN 34 pg (25-35); MEAN CORPUSCULAR HGB CONC 34 g/dL (31-37); MEAN CORPUSCULAR VOLUME 98 fL (79-100); MONO # 0.6 x10^3/uL (0.0-1.1); MONO % 7 % (0-9); NEUT # 6.5 x10^3/uL (1.8-7.7); NEUT % 69 % (31-73); PLATELET COUNT 324 x10^3/uL (140-400); RED BLOOD COUNT 4.47 x10^6/uL (4.30-5.70); RED CELL DISTRIBUTION WIDTH 13.4 % (11.5-14.5); WHITE BLOOD COUNT 9.5 x10^3/uL (4.0-11.0)
[2018-10-02 08:34] LABS: CALCIUM 8.8 mg/dL (8.5-10.1); CREATININE 1.1 mg/dL (0.7-1.3); GFR 89.7; POTASSIUM 3.7 mmol/L (3.5-5.1)
[2018-10-02 08:39] LABS: ALBUMIN 2.7 g/dL (3.4-5.0); ALBUMIN/GLOBULIN RATIO 0.6 (1.0-1.7); TOTAL BILIRUBIN 0.3 mg/dL (0.2-1.0); TOTAL PROTEIN 6.9 g/dL (6.4-8.2)
--- NOTE | 2018-10-02 09:47 | EKG ---
[facility] [address] [place] [address] Test Date: 2018-10-02 Test Time: 08:29:26 Pat Name: BYRON WOMACK Department: Room: Gender: M [employer]: : 1980 Requested By: DAGOBERTO OSORIO Order Number: [id number] Reading MD: Measurements Intervals [place] Rate: 67 P: 36 CA: 156 QRS: -11 QRSD: 90 T: -48 QT: 420 QTc: 446 Interpretive Statements SINUS RHYTHM LEFTWARD AXIS T ABNORMALITY IN ANTEROLATERAL LEADS ABNORMAL ECG No previous ECG available for comparison
[2018-10-02] MEDS ORDERED: cloNIDine HCL 0.1 MG TABLET PO ONE (10:00)
[2018-10-02 10:08] LABS: BILIRUBIN,URINE NEGATIVE (NEG); CLARITY,URINE CLEAR; COLOR,URINE YELLOW; NITRITE,URINE NEGATIVE (NEG); PH,URINE 5.5; PROTEIN,URINE >=300 mg/dL (NEG-TRACE); UROBILINOGEN,URINE 0.2 mg/dL (0.2 mg/dL)
[2018-10-02 10:21] LABS: BACTERIA,URINE FEW /HPF (0-FEW); HYALINE CASTS, URINE FEW /HPF; SQUAMOUS EPITHELIAL CELL,UR FEW /LPF
[2018-10-02 10:22] LABS: RBC,URINE 0 /HPF (0-2)
[2018-10-02] MEDS ORDERED: SUCR1TAB35 PO (10:55)
[2018-10-02] MEDS ORDERED: OMEP20TA8 PO (10:55)
[2018-10-02 11:00] VITALS: BP 170/83
== END 2018-10-02 11:13 | disposition home or self-care (01) ==
LOC: ER 07:54
DX: G89.29 Other chronic pain (principal); R10.13 Epigastric pain; R11.10 Vomiting, unspecified; E11.9 Type 2 diabetes mellitus without complications; I10 Essential (primary) hypertension; K21.9 Gastro-esophageal reflux disease without esophagitis; Z90.49 Acquired absence of other specified parts of digestive tract; Z88.0 Allergy status to penicillin; Z88.8 Allergy status to other drugs, medicaments and biological substances
CPT/HCPCS: 36415; 80053; 81001; 83690; 85025; 93005; 96361; 96374; 96375; 99285; J1630; J2060; J7030

== ENCOUNTER 2019-06-28 16:03 | Emergency (ER) | payer MEDICARE ==
[~2019-06-28] VITALS: Ht 185.4 cm; Wt 100.2 kg
[~2019-06-28 16:03] MED LIST changes: +OMEP20TA8 PO; -PREG50CA PO; +PREG50CA91 PO
[2019-06-28] MEDS ORDERED: ONDANSETRON PF 4 MG/2 ML VIAL. IV ONE (16:30)
[2019-06-28] MEDS ORDERED: fentaNYL PF VIAL 100 MCG/2 ML VIAL IV ONE (16:30)
[2019-06-28] MEDS ORDERED: hydrALAZINE 20 MG/ML VIAL. IVP ONE (16:30)
[2019-06-28] MEDS ORDERED: LIDO:MAALOX 1:1 20 ML SINGLE DOSE. SWSW ONE (16:30)
[2019-06-28] MEDS ORDERED: PANTOPRAZOLE 40 MG TABLET.DR. PO ONE (16:30)
[2019-06-28 16:57] LABS: WHITE BLOOD COUNT 8.8 x10^3/uL (4.0-11.0)
[2019-06-28 16:58] LABS: BASO # 0.1 x10^3/uL (0.0-0.2); BASO % 1 % (0-3); EOS # 0.1 x10^3/uL (0.0-0.7); EOS % 1 % (0-3); HEMATOCRIT 45.3 % (39.0-53.0); HEMOGLOBIN 15.5 g/dL (13.0-17.5); LYMPH # 2.1 x10^3/uL (1.0-4.8); LYMPH % 23 % (24-48); MEAN CORPUSCULAR HEMOGLOBIN 33 pg (25-35); MEAN CORPUSCULAR HGB CONC 34 g/dL (31-37); MEAN CORPUSCULAR VOLUME 96 fL (79-100); MONO # 0.5 x10^3/uL (0.0-1.1); MONO % 6 % (0-9); NEUT # 6.1 x10^3/uL (1.8-7.7); NEUT % 69 % (31-73); PLATELET COUNT 358 x10^3/uL (140-400); RED BLOOD COUNT 4.74 x10^6/uL (4.30-5.70); RED CELL DISTRIBUTION WIDTH 14.5 % (11.5-14.5)
[2019-06-28 17:19] LABS: ALBUMIN 2.1 g/dL (3.4-5.0); ALBUMIN/GLOBULIN RATIO 0.6 (1.0-1.7); CALCIUM 8.5 mg/dL (8.5-10.1); CREATININE 1.3 mg/dL (0.7-1.3); POTASSIUM 3.8 mmol/L (3.5-5.1); TOTAL BILIRUBIN 0.5 mg/dL (0.2-1.0); TOTAL PROTEIN 5.9 g/dL (6.4-8.2)
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
[2019-06-28] MEDS ORDERED: CONTRAST GIVEN. MC PRN (18:00)
[2019-06-28] MEDS ORDERED: IOHEXOL 300 MG/ML 100ML VIAL. IV ONE (18:00)
[2019-06-28] MEDS ORDERED: fentaNYL PF VIAL 100 MCG/2 ML VIAL IVP ONE (18:15)
--- NOTE | 2019-06-28 19:07 | RAD ---
CT ABD PELV W/ IV CONTRST ONLY History: Abdominal pain Comparison: 09/27/2018 Technique: After administration of intravenous contrast, helical CT of the abdomen and pelvis was performed from the lung bases through the ischial tuberosities. Coronal and sagittal reconstructions were obtained. 75 mL of Isovue-370 were used. One or more of the following dose reduction techniques were utilized: Automated exposure control (AEC), Adjustment of mA and/or kV according to patient size, Use of iterative reconstruction technique such as ASiR, CT scan done according to ALARA and image gently/image wisely Abdomen Findings: The visualized lung bases are clear. The liver, pancreas, spleen, and bilateral adrenal glands are normal. Cholecystectomy. Symmetric renal enhancement. There is no focal renal mass. There is no hydronephrosis. Normal caliber large and small bowel. There is no evidence of bowel obstruction. Appendix is normal. There is no free fluid. There are a couple of slightly conspicuous retroperitoneal lymph nodes which are stable from prior exams. The abdominal aorta is normal in caliber. Pelvis Findings: Urinary bladder is normal. No pelvic free fluid. There is no pelvic or inguinal adenopathy. There is no acute bony abnormality. Body wall edema. IMPRESSION: No acute findings. Electronically signed by: Arsh Whitman MD (06/28/2019 7:04 PM) [facility]
[2019-06-28 19:16] VITALS: BP 199/94
[2019-06-28] MEDS ORDERED: ONDA4TAB12 PO (19:21)
[2019-06-28] MEDS ORDERED: TRAM50TA PO (19:21)
[2019-06-28] MEDS ORDERED: PANT40TA77 PO (19:21)
== END 2019-06-28 19:30 | disposition home or self-care (01) ==
LOC: ER 16:03
DX: K21.9 Gastro-esophageal reflux disease without esophagitis (principal); R10.84 Generalized abdominal pain; E11.9 Type 2 diabetes mellitus without complications; I10 Essential (primary) hypertension; G89.29 Other chronic pain; F17.200 Nicotine dependence, unspecified, uncomplicated; Z87.11 Personal history of peptic ulcer disease; Z90.49 Acquired absence of other specified parts of digestive tract; Z88.0 Allergy status to penicillin; Z88.6 Allergy status to analgesic agent
CPT/HCPCS: 36415; 74177; 80053; 83690; 85025; 96374; 96375; 96376; 99285; J0360; J2405; J3010; Q9967

== ENCOUNTER 2019-07-25 07:38 | Emergency (ER) | payer MEDICARE ==
[~2019-07-25] VITALS: Ht 185.4 cm; Wt 95.2 kg
[2019-07-25] MEDS ORDERED: HALOPERIDOL LACTATE 5 MG/ML VIAL. IVP ONE (08:15)
[2019-07-25] MEDS ORDERED: MORPHINE SULFATE 4 MG/ML VIAL. IV ONE (08:15)
[2019-07-25] MEDS ORDERED: METOCLOPRAMIDE HCL 10 MG/2 ML VIAL. IVP ONE (08:15)
[2019-07-25] MEDS ORDERED: IV NORMAL SALINE 1000ML BAG 1,000 ML IV ONE (08:15)
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
[2019-07-25] MEDS ORDERED: SUCRALFATE 1 GM TABLET. PO ONE (09:15)
[2019-07-25] MEDS ORDERED: PANTOPRAZOLE 40 MG TABLET.DR. PO ONE (09:15)
[2019-07-25] MEDS ORDERED: HYDROcodone/APAP 5/325MG 1 TAB TABLET PO ONE (09:30)
[2019-07-25] MEDS ORDERED: HYDR-3164 PO (09:53)
[2019-07-25] MEDS ORDERED: PANT20TA2 PO (09:53)
[2019-07-25] MEDS ORDERED: SUCR1TAB35 PO (09:53)
[2019-07-25 10:04] VITALS: BP 211/106
== END 2019-07-25 10:25 | disposition home or self-care (01) ==
LOC: ER 07:38
DX: G89.29 Other chronic pain (principal); R10.13 Epigastric pain; E11.9 Type 2 diabetes mellitus without complications; K21.9 Gastro-esophageal reflux disease without esophagitis; I10 Essential (primary) hypertension; F17.200 Nicotine dependence, unspecified, uncomplicated; F12.90 Cannabis use, unspecified, uncomplicated; Z90.49 Acquired absence of other specified parts of digestive tract; Z98.890 Other specified postprocedural states
CPT/HCPCS: 99284

== ENCOUNTER 2019-08-27 07:09 | Emergency (ER) | payer MEDICARE ==
[~2019-08-27] VITALS: Ht 185.4 cm; Wt 105.0 kg
[~2019-08-27 07:09] MED LIST changes: -ASPI-612 PO; +ASPI-886 PO; +PANT20TA2 PO
[2019-08-27 07:46] LABS: BILIRUBIN,URINE NEGATIVE (NEG); CLARITY,URINE CLEAR; COLOR,URINE YELLOW; NITRITE,URINE NEGATIVE (NEG); PH,URINE 5.5 (<5.0-8.0); PROTEIN,URINE >=300 mg/dL (NEG-TRACE); UROBILINOGEN,URINE 0.2 mg/dL (0.2 mg/dL)
[2019-08-27 07:48] VITALS: BP 163/89
[2019-08-27] MEDS ORDERED: SUCR1TAB35 PO (07:55)
[2019-08-27] MEDS ORDERED: ESOM20CA PO (07:55)
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
[2019-08-27 08:00] LABS: BACTERIA,URINE FEW /HPF (0-FEW); SQUAMOUS EPITHELIAL CELL,UR FEW /LPF; WBC,URINE 0 /HPF (0-4)
[2019-08-27] MEDS ORDERED: HYOSCYAMINE 0.125 MG TAB.RAPDIS PO PRN (08:00)
[2019-08-27] MEDS ORDERED: LIDO:MAALOX 1:1 20 ML SINGLE DOSE. SWSW ONE (08:00)
[2019-08-27 08:01] LABS: HYALINE CASTS, URINE MODERATE /HPF
== END 2019-08-27 08:05 | disposition home or self-care (01) ==
LOC: ER 07:09
DX: G89.29 Other chronic pain (principal); R10.13 Epigastric pain; E11.9 Type 2 diabetes mellitus without complications; K21.9 Gastro-esophageal reflux disease without esophagitis; I10 Essential (primary) hypertension; F17.200 Nicotine dependence, unspecified, uncomplicated; F12.90 Cannabis use, unspecified, uncomplicated; Z98.890 Other specified postprocedural states; Z90.49 Acquired absence of other specified parts of digestive tract; Z88.0 Allergy status to penicillin; Z88.6 Allergy status to analgesic agent
CPT/HCPCS: 81001; 99283

== ENCOUNTER 2019-08-29 07:46 | Emergency (ER) | payer MEDICARE ==
[~2019-08-29] VITALS: Ht 185.4 cm; Wt 102.0 kg
[~2019-08-29 07:46] MED LIST changes: +ASPI-612 PO; -ASPI-886 PO; +ESOM20CA PO
[2019-08-29] MEDS ORDERED: TETRACAINE 0.5% OPHTH SOLUTION 4ML BOTTLE. OD ONE (09:30)
[2019-08-29] MEDS ORDERED: SULF1TAB24 PO (09:37)
[2019-08-29] MEDS ORDERED: CIPR2.5D OD (09:37)
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
[2019-08-29 09:55] VITALS: BP 158/87
== END 2019-08-29 09:59 | disposition home or self-care (01) ==
LOC: ER 07:46
DX: H10.9 Unspecified conjunctivitis (principal); E11.9 Type 2 diabetes mellitus without complications; I10 Essential (primary) hypertension; K21.9 Gastro-esophageal reflux disease without esophagitis; G89.29 Other chronic pain; F17.200 Nicotine dependence, unspecified, uncomplicated; Z88.0 Allergy status to penicillin; Z88.8 Allergy status to other drugs, medicaments and biological substances
CPT/HCPCS: 99283

== ENCOUNTER 2020-01-01 12:11 | Emergency (ER) | payer MEDICARE ==
[~2020-01-01] VITALS: Ht 188 cm; Wt 109.0 kg
[~2020-01-01 12:11] MED LIST changes: +AMLO-187 PO; -AMLO10TA8 PO; -ASPI-612 PO; +ASPI-886 PO; +CIPR2.5D2 OD; +SULF1TAB24 PO
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
[2020-01-01] MEDS ORDERED: ONDANSETRON PF 4 MG/2 ML VIAL. IVP ONE (13:00)
[2020-01-01] MEDS ORDERED: DICYCLOMINE 20 MG/2 ML VIAL. IM ONE (13:00)
[2020-01-01] MEDS ORDERED: IV NORMAL SALINE 1000ML BAG 1,000 ML IV ONE (13:00)
[2020-01-01 13:06] LABS: BASO # 0.1 x10^3/uL (0.0-0.2); BASO % 1 % (0-3); EOS # 0.1 x10^3/uL (0.0-0.7); EOS % 1 % (0-3); HEMATOCRIT 36.6 % (39.0-53.0); HEMOGLOBIN 12.5 g/dL (13.0-17.5); LYMPH # 2.2 x10^3/uL (1.0-4.8); LYMPH % 22 % (24-48); MEAN CORPUSCULAR HEMOGLOBIN 33 pg (25-35); MEAN CORPUSCULAR HGB CONC 34 g/dL (31-37); MEAN CORPUSCULAR VOLUME 98 fL (79-100); MONO # 0.4 x10^3/uL (0.0-1.1); MONO % 4 % (0-9); NEUT # 7.1 x10^3/uL (1.8-7.7); NEUT % 72 % (31-73); PLATELET COUNT 362 x10^3/uL (140-400); RED BLOOD COUNT 3.75 x10^6/uL (4.30-5.70); RED CELL DISTRIBUTION WIDTH 13.9 % (11.5-14.5); WHITE BLOOD COUNT 9.9 x10^3/uL (4.0-11.0)
[2020-01-01 13:28] LABS: CALCIUM 8.8 mg/dL (8.5-10.1); CREATININE 1.8 mg/dL (0.7-1.3); GFR 50.6
[2020-01-01 13:32] LABS: ALBUMIN 2.3 g/dL (3.4-5.0); ALBUMIN/GLOBULIN RATIO 0.5 (1.0-1.7); TOTAL BILIRUBIN 0.2 mg/dL (0.2-1.0); TOTAL PROTEIN 6.8 g/dL (6.4-8.2)
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
[2020-01-01] MEDS ORDERED: PANT40TA77 PO (14:13)
[2020-01-01] MEDS ORDERED: HYOS0.1265 SL (14:13)
[2020-01-01] MEDS ORDERED: ONDA4TAB7 PO (14:13)
[2020-01-01] MEDS ORDERED: LISI-334 PO (14:13)
[2020-01-01 14:15] VITALS: BP 159/75
== END 2020-01-01 14:42 | disposition home or self-care (01) ==
LOC: ER 12:11
DX: R10.84 Generalized abdominal pain (principal); R11.2 Nausea with vomiting, unspecified; G89.29 Other chronic pain; E11.9 Type 2 diabetes mellitus without complications; I10 Essential (primary) hypertension; K21.9 Gastro-esophageal reflux disease without esophagitis; F17.200 Nicotine dependence, unspecified, uncomplicated; Z90.49 Acquired absence of other specified parts of digestive tract; Z88.0 Allergy status to penicillin; Z88.8 Allergy status to other drugs, medicaments and biological substances
CPT/HCPCS: 74022; 80053; 83690; 85025; 96361; 96372; 96374; 99284; J0500; J2405; J7030

== ENCOUNTER 2020-01-24 09:58 | Emergency (ER) | payer MEDICARE ==
[~2020-01-24] VITALS: Ht 185.4 cm; Wt 106.0 kg
[~2020-01-24 09:58] MED LIST changes: -CLIN300C8 PO; +CLIN300C9 PO; +LISI-334 PO; +ONDA4TAB7 PO
[2020-01-24 10:19] VITALS: BP 169/85
[2020-01-24] MEDS ORDERED: ONDANSETRON ODT 4 MG TAB.RAPDIS. PO ONE (10:45)
[2020-01-24] MEDS ORDERED: DICYCLOMINE HCL 10 MG CAPSULE PO ONE (10:45)
[2020-01-24] MEDS ORDERED: PANTOPRAZOLE 40 MG TABLET.DR. PO ONE (10:45)
[2020-01-24] MEDS ORDERED: DICY20TA3 PO (11:20)
[2020-01-24] MEDS ORDERED: PANT40TA77 PO (11:20)
[2020-01-24] MEDS ORDERED: ONDA4TAB7 PO (11:20)
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
[2020-01-24] MEDS ORDERED: SUCR1TAB35 PO (12:04)
== END 2020-01-24 11:45 | disposition home or self-care (01) ==
LOC: ER 09:58
DX: G89.29 Other chronic pain (principal); R10.13 Epigastric pain; E11.9 Type 2 diabetes mellitus without complications; K21.9 Gastro-esophageal reflux disease without esophagitis; I10 Essential (primary) hypertension; F17.200 Nicotine dependence, unspecified, uncomplicated; F12.90 Cannabis use, unspecified, uncomplicated; Z90.49 Acquired absence of other specified parts of digestive tract; Z98.890 Other specified postprocedural states; Z88.0 Allergy status to penicillin; Z88.6 Allergy status to analgesic agent
CPT/HCPCS: 99284

== ENCOUNTER 2020-05-01 07:45 | Inpatient (IN) | payer MEDICARE ==
[2020-05-01] VITALS (18 sets, daily range): BP systolic 136–195; BP diastolic 56–98
[~2020-05-01] VITALS: Ht 185.4 cm; Wt 112.7 kg
[~2020-05-01 07:45] MED LIST changes: -CLIN150C14 PO; +CLIN150C15 PO; +DICY20TA3 PO; -LISI-334 PO; -LISI-338 PO; +LISI-517 PO; +LISI10TA16 PO; -LISI10TA2 PO; +LISI20TA18 PO
[2020-05-01] MEDS ORDERED: ONDANSETRON PF 4 MG/2 ML VIAL. IVP ONE (08:15)
[2020-05-01] MEDS ORDERED: IV NORMAL SALINE 1000ML BAG 1,000 ML IV ONE (08:15)
[2020-05-01] MEDS ORDERED: DICYCLOMINE HCL 10 MG CAPSULE PO ONE (08:15)
[2020-05-01] MEDS ORDERED: HALOPERIDOL LACTATE 5 MG/ML VIAL. IVP ONE (08:15)
[2020-05-01 08:36] LABS: BASO # 0.1 x10^3/uL (0.0-0.2); BASO % 1 % (0-3); EOS # 0.1 x10^3/uL (0.0-0.7); EOS % 1 % (0-3); HEMATOCRIT 37.4 % (39.0-53.0); HEMOGLOBIN 12.6 g/dL (13.0-17.5); LYMPH # 1.5 x10^3/uL (1.0-4.8); LYMPH % 15 % (24-48); MEAN CORPUSCULAR HEMOGLOBIN 33 pg (25-35); MEAN CORPUSCULAR HGB CONC 34 g/dL (31-37); MEAN CORPUSCULAR VOLUME 98 fL (79-100); MONO # 0.5 x10^3/uL (0.0-1.1); MONO % 5 % (0-9); NEUT # 7.9 x10^3/uL (1.8-7.7); NEUT % 79 % (31-73); PLATELET COUNT 335 x10^3/uL (140-400); RED BLOOD COUNT 3.82 x10^6/uL (4.30-5.70); RED CELL DISTRIBUTION WIDTH 14.5 % (11.5-14.5)
[2020-05-01 08:40] LABS: BILIRUBIN,URINE NEGATIVE (NEG); CLARITY,URINE CLEAR; COLOR,URINE YELLOW; NITRITE,URINE NEGATIVE (NEG); PROTEIN,URINE >=300 mg/dL (NEG-TRACE); UROBILINOGEN,URINE 0.2 mg/dL (0.2 mg/dL)
[2020-05-01 08:44] LABS: CREATININE 2.2 mg/dL (0.7-1.3); GFR 40.1; POTASSIUM 4.1 mmol/L (3.5-5.1)
[2020-05-01 08:50] LABS: ALBUMIN 1.9 g/dL (3.4-5.0); ALBUMIN/GLOBULIN RATIO 0.5 (1.0-1.7); TOTAL BILIRUBIN 0.4 mg/dL (0.2-1.0)
[2020-05-01 08:56] LABS: HYALINE CASTS, URINE MODERATE /HPF
[2020-05-01 08:57] LABS: BACTERIA,URINE MOD /HPF (0-FEW); WBC,URINE >40 /HPF (0-4)
[2020-05-01] MEDS ORDERED: LISINOPRIL 10 MG TABLET PO ONE (09:15)
[2020-05-01] MEDS ORDERED: amLODIPine BESYLATE 5 MG TABLET PO ONE (09:15)
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
[2020-05-01] MEDS ORDERED: NON FORMULARY ITEM (Dicyclomine Hcl 1 TAB) PO PRN (11:30)
[2020-05-01] MEDS ORDERED: CALCIUM CARBONATE 500 MG TAB.CHEW PO PRN (11:30)
[2020-05-01] MEDS ORDERED: ONDANSETRON ODT 4 MG TAB.RAPDIS. PO PRN ×2 (11:30→11:45)
[2020-05-01] MEDS ORDERED: LORazepam 0.5 MG TABLET PO PRN (11:45)
[2020-05-01] MEDS ORDERED: BISACODYL 10 MG SUPP.RECT. PR PRN (11:45)
[2020-05-01] MEDS ORDERED: ACETAMINOPHEN 650 MG SUPP.RECT. PR PRN (11:45)
[2020-05-01] MEDS ORDERED: 0.9 % SODIUM CHLORIDE 10 ML DISP.SYRIN. IV PRN ×2 (11:45)
[2020-05-01] MEDS ORDERED: SODIUM PHOSPHATES 19/7GM 133 ML ENEMA. PR PRN (11:45)
[2020-05-01] MEDS ORDERED: DOCUSATE SODIUM 100 MG CAPSULE. PO PRN (11:45)
[2020-05-01] MEDS ORDERED: ONDANSETRON PF 4 MG/2 ML VIAL. IV PRN (11:45)
[2020-05-01] MEDS ORDERED: PROCHLORPERAZINE 25 MG SUPP.RECT. PR PRN (11:45)
[2020-05-01] MEDS ORDERED: ACETAMINOPHEN 325 MG TABLET. PO PRN (11:45)
--- NOTE | 2020-05-01 11:57 | PDOC2 ---
CARDIOLOGY CONSULT NOTE DATE OF SERVICE: DATE: 05/01/20 TIME: 11:57 CHIEF COMPLAINT: Abdominal pain HPI: 39-year-old man well-known to our service who was recently seen at November 2019 for similar complaints of abdominal pain, nausea and intractable vomiting and he has been admitted for further evaluation. At this last visit the patient had run out of medications but appears at this time his chronic abdominal pain is sues have recurred. Otherwise no specific cardiovascular issues. His blood pressure is above 200 and he is an extensive prior cardiovascular valuation including a cardiac catheterization which has been unremarkable approximately 3 years ago. PMHX: Hypertension Chronic abdominal pain Marijuana abuse SOCHX: As noted above. FAMHX: Noncontributory CURRENT MEDS: Current Medications Medications (Trade) Dose Ordered Sig/Aziza Route PRN Reason Start Time Stop Time Status Last Admin Dose Admin Haloperidol Lactate (Haldol Inj) 5 mg 1X ONCE IVP 05/01/20 08:15 05/01/20 08:19 DC 05/01/20 08:30 Dicyclomine HCl (Bentyl) 10 mg 1X ONCE PO 05/01/20 08:15 05/01/20 08:19 DC 05/01/20 08:29 Ondansetron HCl (Zofran) 4 mg 1X ONCE IVP 05/01/20 08:15 05/01/20 08:19 DC 05/01/20 08:30 Sodium Chloride 1,000 ml @ 1,000 mls/hr 1X ONCE IV 05/01/20 08:15 05/01/20 09:14 DC 05/01/20 08:29 Amlodipine Besylate (Norvasc) 10 mg 1X ONCE PO 05/01/20 09:15 05/01/20 09:16 DC 05/01/20 09:21 Lisinopril (Prinivil) 20 mg 1X ONCE PO 05/01/20 09:15 05/01/20 09:16 DC 05/01/20 09:22 Nicardipine HCl 50 mg/Sodium Chloride 250 ml @ 25 mls/hr CONT PRN IV SEE I/O RECORD 05/01/20 10:15 05/01/20 10:25 ALLERGIES: Allergies Coded Allergies Type Severity Reaction Last Updated Verified Penicillins Allergy Intermediate Hives 05/19/17 Yes ibuprofen Allergy Intermediate Hives 05/19/17 Yes ROS: Negative unless otherwise mentioned above in HPI PHYSICAL EXAM: Vital Signs/I&O: Vital Signs Date Time Temp Pulse Resp B/P (MAP) Pulse Ox O2 Delivery O2 Flow Rate FiO2 05/01/20 10:31 72 18 220/104 (142) 100 Room Air 05/01/20 07:47 97.9 97.9 Physical Exam: GEN.: No apparent distress. Alert and oriented. HEENT: Head is normocephalic, atraumatic NECK: Supple. LUNGS: Clear to auscultation. HEART: RRR, S1, S2 present. Peripheral pulses intact ABDOMEN: Mild diffuse abdominal pain EXTREMITIES: Without any cyanosis. NEUROLOGIC: Normal speech, normal tone PSYCHIATRIC: Normal affect, normal mood. SKIN: No ulcerations DIAGNOSTIC TESTING: Labs, EKG reviewed Lab Laboratory Tests Test 05/01/20 08:24 White Blood Count 10.0 x10^3/uL (4.0-11.0) Red Blood Count 3.82 x10^6/uL (4.30-5.70) L Hemoglobin 12.6 g/dL (13.0-17.5) L Hematocrit 37.4 % (39.0-53.0) L Mean Corpuscular Volume 98 fL (79-100) Mean Corpuscular Hemoglobin 33 pg (25-35) Mean Corpuscular Hemoglobin Concent 34 g/dL (31-37) Red Cell Distribution Width 14.5 % (11.5-14.5) Platelet Count 335 x10^3/uL (140-400) Neutrophils (%) (Auto) 79 % (31-73) H Lymphocytes (%) (Auto) 15 % (24-48) L Monocytes (%) (Auto) 5 % (0-9) Eosinophils (%) (Auto) 1 % (0-3) Basophils (%) (Auto) 1 % (0-3) Neutrophils # (Auto) 7.9 x10^3/uL (1.8-7.7) H Lymphocytes # (Auto) 1.5 x10^3/uL (1.0-4.8) Monocytes # (Auto) 0.5 x10^3/uL (0.0-1.1) Eosinophils # (Auto) 0.1 x10^3/uL (0.0-0.7) Basophils # (Auto) 0.1 x10^3/uL (0.0-0.2) Urine Collection Type Unknown Urine Color Yellow Urine Clarity Clear Urine pH 6.0 (<5.0-8.0) Urine Specific [place] 1.025 (1.000-1.030) Urine Protein >=300 mg/dL (NEG-TRACE) Urine Glucose (UA) 250 mg/dL (NEG) Urine Ketones (Stick) Trace mg/dL (NEG) Urine Blood Moderate (NEG) Urine Nitrite Negative (NEG) Urine Bilirubin Negative (NEG) Urine Urobilinogen Dipstick 0.2 mg/dL (0.2 mg/dL) Urine Leukocyte Esterase Small (NEG) Urine RBC 3-5 /HPF (0-2) Urine WBC >40 /HPF (0-4) Urine Bacteria Mod /HPF (0-FEW) Urine Hyaline Casts Moderate /HPF Urine Mucus Slight /LPF Sodium Level 138 mmol/L (136-145) Potassium Level 4.1 mmol/L (3.5-5.1) Chloride Level 106 mmol/L (98-107) Carbon Dioxide Level 21 mmol/L (21-32) Anion Gap 11 (6-14) Blood Urea Nitrogen 20 mg/dL (8-26) Creatinine 2.2 mg/dL (0.7-1.3) H Estimated GFR (Cockcroft-Gault) 40.1 BUN/Creatinine Ratio 9 (6-20) Glucose Level 142 mg/dL (70-99) H Calcium Level 8.0 mg/dL (8.5-10.1) L Total Bilirubin 0.4 mg/dL (0.2-1.0) Aspartate Amino Transf (AST/SGOT) 24 U/L (15-37) Alkaline Phosphatase 94 U/L (46-116) Total Protein 6.0 g/dL (6.4-8.2) L Albumin 1.9 g/dL (3.4-5.0) L Albumin/Globulin Ratio 0.5 (1.0-1.7) L Lipase 97 U/L (73-393) Laboratory Tests 05/01/20 08:24 ASSESSMENT: 1. Hypertensive emergency secondary to abdominal issues. 2. Acute kidney injury PLAN: 1. Continue titration of Cardene for better blood pressure control. Treat underlying issues with his abdominal pain. No further cardiovascular testing necessary at this time. Supportive care. Will be available for any acute issues. Restart all home meds when he is able to take p.o. Thank you this consultation. LOBO ROMERO MD May 01, 2020 11:57
[2020-05-01] MEDS: HYDROmorphone 2 MG/ML VIAL IVP PRN ×4 (11:58→23:45)
[2020-05-01] MEDS: PANTOPRAZOLE IV PUSH 40 MG VIAL. IVP SCH (12:00)
[2020-05-01] MEDS: LISINOPRIL 20 MG TABLET PO SCH (12:00)
[2020-05-01] MEDS: amLODIPine BESYLATE 10 MG TABLET PO SCH (12:00)
[2020-05-01] MEDS ORDERED: PANTOPRAZOLE 40 MG TABLET.DR. PO SCH (12:00)
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
[2020-05-01] MEDS: ENOXAPARIN 40 MG/0.4 ML SYRINGE. SQ SCH (12:54)
[2020-05-01] MEDS: CHLORTHALIDONE 25 MG TABLET. PO SCH (12:54)
[2020-05-01] MEDS: ASPIRIN ENTERIC COATED 81 MG TABLET.DR. PO SCH (12:54)
[2020-05-01] MEDS: IV NORMAL SALINE 1000ML BAG 1,000 ML IV SCH ×3 (12:55→23:15)
[2020-05-01] MEDS: CHLORHEXIDINE 0.12% 15 ML MOUTHWASH. SWSP SCH ×3 (12:56→19:36)
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
--- NOTE | 2020-05-01 13:40 | NUR ---
Pt admitted to room 104 from the ED via stretcher at 1125, PT ambulated to bed from, gait is steady. Pt placed on monitoring equipment. Cardene drip infusing at 5mg/hr increased to 7.5mg/hr due to elevated bp. Admission process completed.
--- NOTE | 2020-05-01 13:43 | NUR ---
Pharmacy note: 1200 dose of Norvasc and Lisinopril not given because those meds were given in the ED and IV protonix not given because it was give PO.
--- NOTE | 2020-05-01 13:45 | RAD ---
EXAM: Abdomen, single view. HISTORY: Pain. COMPARISON: CT dated 11/30/2019. FINDINGS: Frontal views of the abdomen are obtained. There is a small amount of gas and stool within the colon. There is a relative paucity of air-filled bowel within the midabdomen. There is no transit ion point to suggest obstruction. There are cholecystectomy clips. There are degenerative changes inv olving the hips. IMPRESSION: Mild obstructive bowel gas pattern. Paucity of bowel gas within the midabdomen. Electronically signed by: Candice Jean MD (05/01/2020 1:42 PM) [id number]
[2020-05-01] MEDS: PREGABALIN 50 MG CAPSULE PO SCH ×2 (14:22→19:36)
[2020-05-01] MEDS: IPRATRPIUM/ALBUTEROL 0.5/2.5MG 3 ML NEBU. NEB SCH ×3 (16:07→20:31)
[2020-05-01] MEDS: DICYCLOMINE HCL 10 MG CAPSULE PO SCH (16:47)
[2020-05-01] MEDS: SUCRALFATE 1 GM TABLET. PO SCH ×2 (16:47→19:35)
[2020-05-01] MEDS ORDERED: ATORVASTATIN CALCIUM 20 MG TABLET PO SCH (21:00)
--- NOTE | 2020-05-01 21:36 | RAD ---
EXAM: CT ABDOMEN/PELVIS WITHOUT CONTRAST. HISTORY: Abdominal pain and vomiting. TECHNIQUE: Computed tomography of the abdomen and pelvis was performed without intravenous contrast. One or more of the following individualized dose reduction techniques were utilized for this examinat ion: 1. Automated exposure control. 2. Adjustment of the mA and/or kV according to patient size. 3. Use of iterative reconstruction technique. COMPARISON: 11/30/2019. FINDINGS: Lung windows through the visualized portions of the bases reveal there is a trace right ple ural effusion. There is a mild airspace infiltrate in the right lower lobe. There is mild atelectasis in the left base. Bone windows reveal no suspicious lesions. A 1 mm radiopaque foreign body projects within the subcutaneous tissues of the right lower back. The gallbladder is surgically absent. The liver, spleen, adrenal glands, pancreas and kidneys are unr emarkable without contrast. There is diffuse body wall edema. There is also edema throughout the mese ntery. There is a small amount of pelvic ascites. There is no clear drainable collection. The appendix is not inflamed. There is no small bowel obstruction. A small umbilical hernia contains only fat. There are no pathologically enlarged lymph nodes. IMPRESSION: 1. Anasarca. Small ascites. Small right pleural effusion. Correlate with other clinical data. 2. Findings consistent with mild right lower lobe pneumonia. 3. Small umbilical hernia containing only fat. Electronically signed by: Bruno Garcia MD (05/01/2020 9:34 PM) [facility]
[2020-05-02] VITALS (11 sets, daily range): BP systolic 128–168; BP diastolic 57–77
[2020-05-02] MEDS: IV NORMAL SALINE 1000ML BAG 1,000 ML IV SCH ×2 (05:39→11:46)
[2020-05-02 05:55] LABS: BASO # 0.1 x10^3/uL (0.0-0.2); BASO % 1 % (0-3); EOS % 0 % (0-3); HEMATOCRIT 35.4 % (39.0-53.0); HEMOGLOBIN 11.3 g/dL (13.0-17.5); LYMPH # 1.9 x10^3/uL (1.0-4.8); LYMPH % 13 % (24-48); MEAN CORPUSCULAR HEMOGLOBIN 32 pg (25-35); MEAN CORPUSCULAR HGB CONC 32 g/dL (31-37); MEAN CORPUSCULAR VOLUME 99 fL (79-100); MONO # 0.7 x10^3/uL (0.0-1.1); MONO % 5 % (0-9); NEUT # 11.9 x10^3/uL (1.8-7.7); NEUT % 81 % (31-73); PLATELET COUNT 333 x10^3/uL (140-400); RED BLOOD COUNT 3.59 x10^6/uL (4.30-5.70); RED CELL DISTRIBUTION WIDTH 14.3 % (11.5-14.5); WHITE BLOOD COUNT 14.7 x10^3/uL (4.0-11.0)
[2020-05-02] MEDS: IPRATRPIUM/ALBUTEROL 0.5/2.5MG 3 ML NEBU. NEB SCH ×2 (06:00→10:00)
[2020-05-02 06:07] LABS: ALBUMIN 1.6 g/dL (3.4-5.0); ALBUMIN/GLOBULIN RATIO 0.4 (1.0-1.7); CALCIUM 7.7 mg/dL (8.5-10.1); CREATININE 2.3 mg/dL (0.7-1.3); GFR 38.1; POTASSIUM 3.6 mmol/L (3.5-5.1); TOTAL BILIRUBIN 0.3 mg/dL (0.2-1.0); TOTAL PROTEIN 5.7 g/dL (6.4-8.2)
[2020-05-02] MEDS: HYDROmorphone 2 MG/ML VIAL IVP PRN ×3 (06:21→13:05)
[2020-05-02] MEDS: SUCRALFATE 1 GM TABLET. PO SCH ×2 (08:18→11:30)
[2020-05-02] MEDS: amLODIPine BESYLATE 10 MG TABLET PO SCH (08:18)
[2020-05-02] MEDS: DICYCLOMINE HCL 10 MG CAPSULE PO SCH ×2 (08:18→11:30)
[2020-05-02] MEDS: CHLORHEXIDINE 0.12% 15 ML MOUTHWASH. SWSP SCH ×2 (08:19→13:00)
[2020-05-02] MEDS: LISINOPRIL 20 MG TABLET PO SCH (08:19)
[2020-05-02] MEDS: CHLORTHALIDONE 25 MG TABLET. PO SCH (08:19)
[2020-05-02] MEDS: ASPIRIN ENTERIC COATED 81 MG TABLET.DR. PO SCH (08:19)
[2020-05-02] MEDS: PREGABALIN 50 MG CAPSULE PO SCH ×2 (08:19→13:37)
[2020-05-02] MEDS: PANTOPRAZOLE IV PUSH 40 MG VIAL. IVP SCH (08:19)
[2020-05-02 08:21] LABS: BARBITURATES NEG (NEG); BENZODIAZEPINES NEG (NEG); CANNABINOIDS POS (NEG); COCAINE NEG (NEG); METHADONE NEG (NEG); OPIATES NEG (NEG); PHENCYCLIDINE NEG (NEG)
[2020-05-02 08:24] LABS: AMPHETAMINE/METHAMPHETAMINE NEG (NEG)
--- NOTE | 2020-05-02 09:08 | PDOC ---
CARDIOLOGY PROGRESS NOTE SUBJECTIVE: No new events. OBJECTIVE: Vital Signs/I&O: Vital Signs Date Time Temp Pulse Resp B/P (MAP) Pulse Ox O2 Delivery O2 Flow Rate FiO2 05/02/20 08:19 89 151/65 05/02/20 07:00 16 99 Room Air 05/02/20 06:22 97.7 97.7 I & O 05/01/20 05/01/20 05/02/20 15:00 23:00 07:00 Intake Total 1120 ml 1306 ml 2700 ml Balance 1120 ml 1306 ml 2700 ml Objective: GEN.: No apparent distress. Alert and oriented. HEENT: Head is normocephalic, atraumatic NECK: Supple. LUNGS: Clear to auscultation. HEART: RRR, S1, S2 present. Peripheral pulses intact ABDOMEN: Soft, nontender. Positive bowel sounds. EXTREMITIES: Without any cyanosis. NEUROLOGIC: Normal speech, normal tone PSYCHIATRIC: Normal affect, normal mood. SKIN: No ulcerations CURRENT MEDICATIONS: Current Medications Medications (Trade) Dose Ordered Sig/Aziza Route PRN Reason Start Time Stop Time Status Last Admin Dose Admin Amlodipine Besylate (Norvasc) 10 mg 1X ONCE PO 05/01/20 09:15 05/01/20 09:16 DC 05/01/20 09:21 Lisinopril (Prinivil) 20 mg 1X ONCE PO 05/01/20 09:15 05/01/20 09:16 DC 05/01/20 09:22 Nicardipine HCl 50 mg/Sodium Chloride 250 ml @ 25 mls/hr CONT PRN IV SEE I/O RECORD 05/01/20 10:15 05/02/20 06:20 Amlodipine Besylate (Norvasc) 10 mg DAILY PO 05/01/20 12:00 05/02/20 08:18 Aspirin (Ecotrin) 81 mg DAILYWBKFT PO 05/01/20 12:00 05/02/20 08:19 Atorvastatin Calcium (Lipitor) 20 mg QHS PO 05/01/20 21:00 05/01/20 19:35 Chlorhexidine Gluconate (Peridex) 15 ml QID SWSP 05/01/20 13:00 05/02/20 08:19 Chlorthalidone (Thalitone) 25 mg DAILY PO 05/01/20 12:00 05/02/20 08:19 Dicyclomine HCl (Bentyl) 10 mg TIDAC PO 05/01/20 16:30 05/02/20 08:18 Lisinopril (Prinivil) 20 mg DAILY PO 05/01/20 12:00 05/02/20 08:19 Pantoprazole Sodium (Protonix) 40 mg DAILYAC PO 05/01/20 12:00 05/02/20 07:48 DC 05/01/20 12:54 Pregabalin (Lyrica) 50 mg TID PO 05/01/20 14:00 05/02/20 08:19 Sucralfate (Carafate) 1 gm QIDACHS PO 05/01/20 16:30 05/02/20 08:18 Hydromorphone HCl (Dilaudid) 0.6 mg PRN Q3HRS PRN IVP PAIN 05/01/20 11:45 05/02/20 06:21 Sodium Chloride 1,000 ml @ 175 mls/hr Q5H43M IV 05/01/20 11:45 05/02/20 05:39 Albuterol/ Ipratropium (Duoneb) 3 ml Q4HRS W/A NEB 05/01/20 14:00 05/01/20 16:07 Enoxaparin Sodium (Lovenox 40mg Syringe) 40 mg Q24H SQ 05/01/20 12:00 05/01/20 12:54 Pantoprazole Sodium (PROTONIX VIAL for IV PUSH) 40 mg DAILYAC IVP 05/01/20 12:00 05/02/20 08:19 DIAGNOSTIC TESTING: labs reviewed Labs: Laboratory Tests 05/02/20 04:00 Laboratory Tests Test 05/01/20 21:24 05/02/20 04:00 05/02/20 04:39 Glucose (Fingerstick) 196 mg/dL (70-99) H 189 mg/dL (70-99) H White Blood Count 14.7 x10^3/uL (4.0-11.0) H Red Blood Count 3.59 x10^6/uL (4.30-5.70) L Hemoglobin 11.3 g/dL (13.0-17.5) L Hematocrit 35.4 % (39.0-53.0) L Mean Corpuscular Volume 99 fL (79-100) Mean Corpuscular Hemoglobin 32 pg (25-35) Mean Corpuscular Hemoglobin Concent 32 g/dL (31-37) Red Cell Distribution Width 14.3 % (11.5-14.5) Platelet Count 333 x10^3/uL (140-400) Neutrophils (%) (Auto) 81 % (31-73) H Lymphocytes (%) (Auto) 13 % (24-48) L Monocytes (%) (Auto) 5 % (0-9) Eosinophils (%) (Auto) 0 % (0-3) Basophils (%) (Auto) 1 % (0-3) Neutrophils # (Auto) 11.9 x10^3/uL (1.8-7.7) H Lymphocytes # (Auto) 1.9 x10^3/uL (1.0-4.8) Monocytes # (Auto) 0.7 x10^3/uL (0.0-1.1) Eosinophils # (Auto) 0.0 x10^3/uL (0.0-0.7) Basophils # (Auto) 0.1 x10^3/uL (0.0-0.2) Sodium Level 139 mmol/L (136-145) Potassium Level 3.6 mmol/L (3.5-5.1) Chloride Level 106 mmol/L (98-107) Carbon Dioxide Level 22 mmol/L (21-32) Anion Gap 11 (6-14) Blood Urea Nitrogen 21 mg/dL (8-26) Creatinine 2.3 mg/dL (0.7-1.3) H Estimated GFR (Cockcroft-Gault) 38.1 BUN/Creatinine Ratio 9 (6-20) Glucose Level 166 mg/dL (70-99) H Calcium Level 7.7 mg/dL (8.5-10.1) L Total Bilirubin 0.3 mg/dL (0.2-1.0) Aspartate Amino Transf (AST/SGOT) 14 U/L (15-37) L Alkaline Phosphatase 74 U/L (46-116) Total Protein 5.7 g/dL (6.4-8.2) L Albumin 1.6 g/dL (3.4-5.0) L Albumin/Globulin Ratio 0.4 (1.0-1.7) L ASSESSMENT: 1. HTN urgency 2. CKD 3. non-compliance/social issues. PLAN: 1. Continue present meds. 2. No further CV testing needed. Needs outpt f/u. Thanks. Justicifation of Admission Dx: Justifications for Admission: Justification of Admission Dx: LOBO Levin MD May 02, 2020 09:08
[2020-05-02] MEDS: ENOXAPARIN 40 MG/0.4 ML SYRINGE. SQ SCH (12:00)
--- NOTE | 2020-05-02 12:06 | PDOC ---
G I PROGRESS NOTE Subjective Did not awaken. Objective No reports of any issues GI-edwards. 'Scripts on bedside table--going home? Physical Exam No PE. Review of Relevant I have reviewed the following items shelli (where applicable) has been applied. Labs Laboratory Tests Test 05/01/20 07:54 05/01/20 08:24 05/01/20 21:24 05/02/20 04:00 Urine Opiates Screen Neg (NEG) Urine Methadone Screen Neg (NEG) Urine Barbiturates Neg (NEG) Urine Phencyclidine Screen Neg (NEG) Urine Amphetamine/Methamphetamine Neg (NEG) Urine Benzodiazepines Screen Neg (NEG) Urine Cocaine Screen Neg (NEG) Urine Cannabinoids Screen Pos (NEG) Urine Ethyl Alcohol Neg (NEG) White Blood Count 10.0 x10^3/uL (4.0-11.0) 14.7 x10^3/uL (4.0-11.0) Red Blood Count 3.82 x10^6/uL (4.30-5.70) 3.59 x10^6/uL (4.30-5.70) Hemoglobin 12.6 g/dL (13.0-17.5) 11.3 g/dL (13.0-17.5) Hematocrit 37.4 % (39.0-53.0) 35.4 % (39.0-53.0) Mean Corpuscular Volume 98 fL (79-100) 99 fL (79-100) Mean Corpuscular Hemoglobin 33 pg (25-35) 32 pg (25-35) Mean Corpuscular Hemoglobin Concent 34 g/dL (31-37) 32 g/dL (31-37) Red Cell Distribution Width 14.5 % (11.5-14.5) 14.3 % (11.5-14.5) Platelet Count 335 x10^3/uL (140-400) 333 x10^3/uL (140-400) Neutrophils (%) (Auto) 79 % (31-73) 81 % (31-73) Lymphocytes (%) (Auto) 15 % (24-48) 13 % (24-48) Monocytes (%) (Auto) 5 % (0-9) 5 % (0-9) Eosinophils (%) (Auto) 1 % (0-3) 0 % (0-3) Basophils (%) (Auto) 1 % (0-3) 1 % (0-3) Neutrophils # (Auto) 7.9 x10^3/uL (1.8-7.7) 11.9 x10^3/uL (1.8-7.7) Lymphocytes # (Auto) 1.5 x10^3/uL (1.0-4.8) 1.9 x10^3/uL (1.0-4.8) Monocytes # (Auto) 0.5 x10^3/uL (0.0-1.1) 0.7 x10^3/uL (0.0-1.1) Eosinophils # (Auto) 0.1 x10^3/uL (0.0-0.7) 0.0 x10^3/uL (0.0-0.7) Basophils # (Auto) 0.1 x10^3/uL (0.0-0.2) 0.1 x10^3/uL (0.0-0.2) Urine Collection Type Unknown Urine Color Yellow Urine Clarity Clear Urine pH 6.0 (<5.0-8.0) Urine Specific [place] 1.025 (1.000-1.030) Urine Protein >=300 mg/dL (NEG-TRACE) Urine Glucose (UA) 250 mg/dL (NEG) Urine Ketones (Stick) Trace mg/dL (NEG) Urine Blood Moderate (NEG) Urine Nitrite Negative (NEG) Urine Bilirubin Negative (NEG) Urine Urobilinogen Dipstick 0.2 mg/dL (0.2 mg/dL) Urine Leukocyte Esterase Small (NEG) Urine RBC 3-5 /HPF (0-2) Urine WBC >40 /HPF (0-4) Urine Bacteria Mod /HPF (0-FEW) Urine Hyaline Casts Moderate /HPF Urine Mucus Slight /LPF Sodium Level 138 mmol/L (136-145) 139 mmol/L (136-145) Potassium Level 4.1 mmol/L (3.5-5.1) 3.6 mmol/L (3.5-5.1) Chloride Level 106 mmol/L (98-107) 106 mmol/L (98-107) Carbon Dioxide Level 21 mmol/L (21-32) 22 mmol/L (21-32) Anion Gap 11 (6-14) 11 (6-14) Blood Urea Nitrogen 20 mg/dL (8-26) 21 mg/dL (8-26) Creatinine 2.2 mg/dL (0.7-1.3) 2.3 mg/dL (0.7-1.3) Estimated GFR (Cockcroft-Gault) 40.1 38.1 BUN/Creatinine Ratio 9 (6-20) 9 (6-20) Glucose Level 142 mg/dL (70-99) 166 mg/dL (70-99) Calcium Level 8.0 mg/dL (8.5-10.1) 7.7 mg/dL (8.5-10.1) Magnesium Level 1.9 mg/dL (1.8-2.4) Total Bilirubin 0.4 mg/dL (0.2-1.0) 0.3 mg/dL (0.2-1.0) Aspartate Amino Transf (AST/SGOT) 24 U/L (15-37) 14 U/L (15-37) Alanine Aminotransferase (ALT/SGPT) 29 U/L (16-63) 21 U/L (16-63) Alkaline Phosphatase 94 U/L (46-116) 74 U/L (46-116) Troponin I Quantitative 0.451 ng/mL (0.000-0.055) Total Protein 6.0 g/dL (6.4-8.2) 5.7 g/dL (6.4-8.2) Albumin 1.9 g/dL (3.4-5.0) 1.6 g/dL (3.4-5.0) Albumin/Globulin Ratio 0.5 (1.0-1.7) 0.4 (1.0-1.7) Lipase 97 U/L (73-393) Thyroid Stimulating Hormone (TSH) 1.536 uIU/mL (0.358-3.74) Glucose (Fingerstick) 196 mg/dL (70-99) Test 05/02/20 04:39 Glucose (Fingerstick) 189 mg/dL (70-99) Laboratory Tests Test 05/01/20 21:24 05/02/20 04:00 05/02/20 04:39 Glucose (Fingerstick) 196 mg/dL (70-99) 189 mg/dL (70-99) White Blood Count 14.7 x10^3/uL (4.0-11.0) Red Blood Count 3.59 x10^6/uL (4.30-5.70) Hemoglobin 11.3 g/dL (13.0-17.5) Hematocrit 35.4 % (39.0-53.0) Mean Corpuscular Volume 99 fL (79-100) Mean Corpuscular Hemoglobin 32 pg (25-35) Mean Corpuscular Hemoglobin Concent 32 g/dL (31-37) Red Cell Distribution Width 14.3 % (11.5-14.5) Platelet Count 333 x10^3/uL (140-400) Neutrophils (%) (Auto) 81 % (31-73) Lymphocytes (%) (Auto) 13 % (24-48) Monocytes (%) (Auto) 5 % (0-9) Eosinophils (%) (Auto) 0 % (0-3) Basophils (%) (Auto) 1 % (0-3) Neutrophils # (Auto) 11.9 x10^3/uL (1.8-7.7) Lymphocytes # (Auto) 1.9 x10^3/uL (1.0-4.8) Monocytes # (Auto) 0.7 x10^3/uL (0.0-1.1) Eosinophils # (Auto) 0.0 x10^3/uL (0.0-0.7) Basophils # (Auto) 0.1 x10^3/uL (0.0-0.2) Sodium Level 139 mmol/L (136-145) Potassium Level 3.6 mmol/L (3.5-5.1) Chloride Level 106 mmol/L (98-107) Carbon Dioxide Level 22 mmol/L (21-32) Anion Gap 11 (6-14) Blood Urea Nitrogen 21 mg/dL (8-26) Creatinine 2.3 mg/dL (0.7-1.3) Estimated GFR (Cockcroft-Gault) 38.1 BUN/Creatinine Ratio 9 (6-20) Glucose Level 166 mg/dL (70-99) Calcium Level 7.7 mg/dL (8.5-10.1) Total Bilirubin 0.3 mg/dL (0.2-1.0) Aspartate Amino Transf (AST/SGOT) 14 U/L (15-37) Alanine Aminotransferase (ALT/SGPT) 21 U/L (16-63) Alkaline Phosphatase 74 U/L (46-116) Total Protein 5.7 g/dL (6.4-8.2) Albumin 1.6 g/dL (3.4-5.0) Albumin/Globulin Ratio 0.4 (1.0-1.7) Vitals/I & O Vital Sign - Last 24 Hours 05/01/20 05/01/20 05/01/20 05/01/20 12:15 12:28 12:30 13:00 Pulse 92 92 92 Resp 20 18 20 18 B/P (MAP) 150/67 (94) 154/71 (98) 152/68 (96) Pulse Ox 98 99 99 99 O2 Delivery Room Air Room Air Room Air Room Air 05/01/20 05/01/20 05/01/20 05/01/20 14:00 15:00 15:45 16:00 Pulse 100 87 Resp 20 20 16 B/P (MAP) 150/69 (96) 159/82 (107) Pulse Ox 95 96 98 O2 Delivery Room Air Room Air Room Air Room Air 05/01/20 05/01/20 05/01/20 05/01/20 16:08 16:09 16:15 17:00 Temp 98.1 98.1 Pulse 86 92 Resp 18 16 20 B/P (MAP) 163/73 (103) 156/74 (101) Pulse Ox 100 96 96 97 O2 Delivery Room Air Room Air Room Air Room Air 05/01/20 05/01/20 05/01/20 05/01/20 18:00 19:37 19:44 20:00 Pulse 88 103 Resp 16 18 16 B/P (MAP) 155/66 (95) 172/73 (106) Pulse Ox 98 98 96 O2 Delivery Room Air Room Air Room Air Room Air 05/01/20 05/01/20 05/01/20 05/01/20 20:07 20:10 21:22 22:39 Temp 98.7 98.7 Pulse 87 92 98 Resp 18 16 16 16 B/P (MAP) 150/60 (90) 149/67 (94) 150/65 (93) Pulse Ox 96 96 97 96 O2 Delivery Room Air Room Air Room Air Room Air 05/01/20 05/01/20 05/01/20 05/01/20 23:04 23:45 23:45 23:49 Pulse 92 94 100 Resp 16 18 16 16 B/P (MAP) 147/72 (97) 144/72 (96) 136/56 (82) Pulse Ox 96 96 96 97 O2 Delivery Room Air Room Air Room Air Room Air 05/01/20 05/02/20 05/02/20 05/02/20 23:54 00:06 00:15 01:04 Pulse 87 88 Resp 16 16 16 B/P (MAP) 128/57 (80) 151/77 (101) Pulse Ox 96 96 97 O2 Delivery Room Air Room Air Room Air Room Air 05/02/20 05/02/20 05/02/20 05/02/20 01:38 01:49 03:02 04:06 Temp 98.1 98.1 Pulse 96 95 95 95 Resp 16 16 16 16 B/P (MAP) 162/75 (104) 148/65 (92) 155/71 (99) 154/74 (100) Pulse Ox 97 98 96 97 O2 Delivery Room Air Room Air Room Air Room Air 05/02/20 05/02/20 05/02/20 05/02/20 04:07 04:55 05:40 06:21 Pulse 91 88 Resp 16 16 18 B/P (MAP) 140/70 (93) 160/71 (100) Pulse Ox 97 99 99 O2 Delivery Room Air Room Air Room Air Room Air 05/02/20 05/02/20 05/02/20 05/02/20 06:22 07:00 08:00 08:00 Temp 97.7 98.0 97.7 98.0 Pulse 92 76 Resp 16 16 16 B/P (MAP) 163/71 (101) 167/73 (104) Pulse Ox 99 99 99 O2 Delivery Room Air Room Air Room Air Room Air 05/02/20 05/02/20 05/02/20 05/02/20 08:18 08:19 09:00 10:21 Pulse 89 89 75 Resp 16 20 B/P (MAP) 156/65 151/65 168/74 (105) Pulse Ox 99 99 O2 Delivery Room Air Room Air Intake and Output 05/01/20 05/01/20 05/02/20 14:59 22:59 06:59 Intake Total 1000 ml 1426 ml 2700 ml Balance 1000 ml 1426 ml 2700 ml Problem List Problems Medical Problems: (1) Hypertensive urgency Status: Acute Assessment Abdominal pain, N, V. Seems better per others. GERD H.pylori gastritis Plan of Care Note Continue PPI. If can get him to f/u, could address H.pylori. Justicifation of Admission Dx: Justifications for Admission: Justification of Admission Dx: No JUSTIN BROWN MD May 02, 2020 12:06
--- NOTE | 2020-05-02 13:03 | PDOC ---
[employer] PROGRESS NOTE Date of Service DOS: DATE: 05/02/20 TIME: 13:02 Chief Complaint Chief Complaint Hypertensive urgency Severe noncompliance History of Present Illness History of Present Illness 05/02/2020 Patient seen and examined and he is at his baseline We will go ahead and discharge please see dictation Vitals/I&O Vitals/I&O: Vital Signs Date Time Temp Pulse Resp B/P (MAP) Pulse Ox O2 Delivery O2 Flow Rate FiO2 05/02/20 10:21 20 99 Room Air 05/02/20 09:00 75 168/74 (105) 05/02/20 08:00 98.0 98.0 I & O 05/01/20 05/01/20 05/02/20 15:00 23:00 07:00 Intake Total 1120 ml 1306 ml 2700 ml Balance 1120 ml 1306 ml 2700 ml Physical Exam General: Alert, Oriented X3, Cooperative, No acute distress, mild distress Lungs: Clear Abdomen: Normal bowel sounds, No hepatosplenomegaly, Other (mild tenderness) Extremities: No clubbing, No cyanosis Skin: No significant lesion Labs Labs: Laboratory Tests Test 05/01/20 21:24 05/02/20 04:00 05/02/20 04:39 Glucose (Fingerstick) 196 mg/dL (70-99) 189 mg/dL (70-99) White Blood Count 14.7 x10^3/uL (4.0-11.0) Red Blood Count 3.59 x10^6/uL (4.30-5.70) Hemoglobin 11.3 g/dL (13.0-17.5) Hematocrit 35.4 % (39.0-53.0) Mean Corpuscular Volume 99 fL (79-100) Mean Corpuscular Hemoglobin 32 pg (25-35) Mean Corpuscular Hemoglobin Concent 32 g/dL (31-37) Red Cell Distribution Width 14.3 % (11.5-14.5) Platelet Count 333 x10^3/uL (140-400) Neutrophils (%) (Auto) 81 % (31-73) Lymphocytes (%) (Auto) 13 % (24-48) Monocytes (%) (Auto) 5 % (0-9) Eosinophils (%) (Auto) 0 % (0-3) Basophils (%) (Auto) 1 % (0-3) Neutrophils # (Auto) 11.9 x10^3/uL (1.8-7.7) Lymphocytes # (Auto) 1.9 x10^3/uL (1.0-4.8) Monocytes # (Auto) 0.7 x10^3/uL (0.0-1.1) Eosinophils # (Auto) 0.0 x10^3/uL (0.0-0.7) Basophils # (Auto) 0.1 x10^3/uL (0.0-0.2) Sodium Level 139 mmol/L (136-145) Potassium Level 3.6 mmol/L (3.5-5.1) Chloride Level 106 mmol/L (98-107) Carbon Dioxide Level 22 mmol/L (21-32) Anion Gap 11 (6-14) Blood Urea Nitrogen 21 mg/dL (8-26) Creatinine 2.3 mg/dL (0.7-1.3) Estimated GFR (Cockcroft-Gault) 38.1 BUN/Creatinine Ratio 9 (6-20) Glucose Level 166 mg/dL (70-99) Calcium Level 7.7 mg/dL (8.5-10.1) Total Bilirubin 0.3 mg/dL (0.2-1.0) Aspartate Amino Transf (AST/SGOT) 14 U/L (15-37) Alanine Aminotransferase (ALT/SGPT) 21 U/L (16-63) Alkaline Phosphatase 74 U/L (46-116) Total Protein 5.7 g/dL (6.4-8.2) Albumin 1.6 g/dL (3.4-5.0) Albumin/Globulin Ratio 0.4 (1.0-1.7) Assessment and Plan Assessmemt and Plan Problems Medical Problems: (1) Hypertensive urgency Status: Acute Comment Review of Relevant I have reviewed the following items shelli (where applicable) has been applied. Medications: Current Medications Medications (Trade) Dose Ordered Sig/Aziza Route PRN Reason Start Time Stop Time Status Last Admin Dose Admin Atorvastatin Calcium (Lipitor) 20 mg QHS PO 05/01/20 21:00 05/01/20 19:35 Dicyclomine HCl (Bentyl) 10 mg TIDAC PO 05/01/20 16:30 05/02/20 08:18 Pregabalin (Lyrica) 50 mg TID PO 05/01/20 14:00 05/02/20 08:19 Sucralfate (Carafate) 1 gm QIDACHS PO 05/01/20 16:30 05/02/20 08:18 Albuterol/ Ipratropium (Duoneb) 3 ml Q4HRS W/A NEB 05/01/20 14:00 05/01/20 16:07 Justifications for Admission General Conditions Hemodynamically stable?: Yes Justification for admission: Patient hemodynamically unstable as indicated by persistent orthostatic vital signs changes ie fall of SBP of 20 mmHg or more OR fall in DBP of 10mmHg or more, 1 to 3 minutes after patient sits/stands from recumbent position. severe htn Reduced urine output?: Yes Justification of admission: Patient has tachycardia (> 100 beats per minute) or hypotension (SBP < 90 mm Hg) leading to inadequate systemic perfusion as indicated by reduced urine output. Other Justification BAKARI CONTRERAS III DO May 02, 2020 13:03
--- NOTE | 2020-05-02 13:20 | NUR ---
DISCHARGE NOTE PATIENT A/O X4, VSS, IV LINES DC'D, ALL PRESCRIPTIONS GIVEN TO PATIENTS , ALL BELONGING WERE GIVEN TO PATIENT. PATIENT AMBULATED OUT WITH [employer] LAWSONA TO WIFES VEHICLE. PATIENT INSTRUCTED NOT TO DRIVE TODAY HE WAS GIVEN IV NARCOTICS. PATIENT VERBALIZED UNDERSTANDING OF ALL DISCHARGE INSTRUCTIONS.
--- NOTE | 2020-05-02 13:36 | DS ---
DATE OF DISCHARGE: 05/02/2020 ADMISSION DIAGNOSES: Hypertensive urgency, abdominal pain. DISCHARGE DIAGNOSES: Resolving hypertensive urgency, resolving abdominal pain, recent colitis, severe noncompliance with his home meds (he is not on any of them, but he is supposed to be taking around 15 meds), tobacco abuse, severe protein-calorie malnutrition, diabetes. CONSULTATIONS: GI and Cardiology. PROCEDURES: None. HOSPITAL COURSE: The patient is a pleasant middle-aged male, presented with hypertensive urgency. He was admitted. We consulted GI and Cardiology. We gave him antihypertensives. This morning when I saw and examined him, he is doing well. He wants to go home. His pressures are normalized and we plan to discharge. I left him prescriptions for all of his home meds. DISPOSITION: Home. ACTIVITY: As tolerated. DIET: Low sodium. MEDICATIONS: Please see the MRAD. I gave him prescriptions for Bentyl 10 t.i.d., Levsin 0.125 q.4 p.r.n., atorvastatin 20 a day, amlodipine 10 a day, lisinopril 20 a day, aspirin 81 a day, Lyrica 50 t.i.d., chlorthalidone 25 daily. We are going to continue his home calcium carbonate and other [id number] meds including vitamins. I gave him prescription for Zofran 4 q.6, Carafate 1 gram q.i.d., Protonix 40 every day, and metformin 500 b.i.d. TOTAL TIME: 32 minutes. BAKARI CONTRERAS DO DR: CHIDI/miguel JOB#: [id number] / [id number]
== END 2020-05-02 13:20 | disposition home or self-care (01) | DRG 391 ==
LOC: ER 07:45 → 1 WEST ICU 10:19
PROVIDERS: ADMIT Family Medicine; ATTEND Family Medicine
DX: K21.9 Gastro-esophageal reflux disease without esophagitis (principal); N17.0 Acute kidney failure with tubular necrosis; E43 Unspecified severe protein-calorie malnutrition; I16.1 Hypertensive emergency; K29.70 Gastritis, unspecified, without bleeding; E11.22 Type 2 diabetes mellitus with diabetic chronic kidney disease; E78.5 Hyperlipidemia, unspecified; E86.9 Volume depletion, unspecified; F12.10 Cannabis abuse, uncomplicated; F17.210 Nicotine dependence, cigarettes, uncomplicated; G89.29 Other chronic pain; I12.9 Hypertensive chronic kidney disease with stage 1 through stage 4 chronic kidney disease, or unspecified chronic kidney disease; K31.89 Other diseases of stomach and duodenum; N18.30 Chronic kidney disease, stage 3 unspecified; Z82.49 Family history of ischemic heart disease and other diseases of the circulatory system; Z87.11 Personal history of peptic ulcer disease; Z91.14 Patient's other noncompliance with medication regimen; Z91.19 Patient's noncompliance with other medical treatment and regimen; F41.9 Anxiety disorder, unspecified; G62.9 Polyneuropathy, unspecified; Z68.32 Body mass index [BMI] 32.0-32.9, adult; Z90.49 Acquired absence of other specified parts of digestive tract; Z88.0 Allergy status to penicillin; Z88.8 Allergy status to other drugs, medicaments and biological substances; B96.81 Helicobacter pylori [H. pylori] as the cause of diseases classified elsewhere
CPT/HCPCS: 36415; 74018; 74176; 80053; 80307; 81001; 82962; 83690; 83735; 84443; 84484; 85025; 94640; 94760; 96361; 96374; 96375; 99406; C9113; J1170; J1630; J1650; J2405; J3490; J7030; J7050; 99291-25; G0378

== ENCOUNTER 2020-05-13 12:06 | Emergency (ER) | payer MEDICARE ==
[~2020-05-13] VITALS: Ht 188 cm; Wt 111.0 kg
[2020-05-13] MEDS ORDERED: FAMOTIDINE 20 MG/2 ML VIAL IVP ONE (12:45)
[2020-05-13] MEDS ORDERED: HALOPERIDOL LACTATE 5 MG/ML VIAL. IVP ONE (12:45)
[2020-05-13] MEDS ORDERED: LABETALOL 20 MG/4 ML DISP.SYRIN. IVP ONE (12:45)
[2020-05-13 13:24] LABS: BASO # 0.2 x10^3/uL (0.0-0.2); BASO % 1 % (0-3); EOS # 0.1 x10^3/uL (0.0-0.7); EOS % 1 % (0-3); HEMATOCRIT 38.8 % (39.0-53.0); HEMOGLOBIN 12.7 g/dL (13.0-17.5); LYMPH # 1.9 x10^3/uL (1.0-4.8); LYMPH % 14 % (24-48); MEAN CORPUSCULAR HEMOGLOBIN 32 pg (25-35); MEAN CORPUSCULAR HGB CONC 33 g/dL (31-37); MEAN CORPUSCULAR VOLUME 99 fL (79-100); MONO # 0.6 x10^3/uL (0.0-1.1); MONO % 5 % (0-9); NEUT # 10.2 x10^3/uL (1.8-7.7); NEUT % 78 % (31-73); PLATELET COUNT 332 x10^3/uL (140-400); RED BLOOD COUNT 3.92 x10^6/uL (4.30-5.70); RED CELL DISTRIBUTION WIDTH 14.9 % (11.5-14.5)
[2020-05-13 13:35] VITALS: BP 204/110
[2020-05-13 13:35] LABS: BILIRUBIN,URINE NEGATIVE (NEG); CLARITY,URINE CLEAR; COLOR,URINE YELLOW; NITRITE,URINE NEGATIVE (NEG); PROTEIN,URINE >=300 mg/dL (NEG-TRACE); UROBILINOGEN,URINE 0.2 mg/dL (0.2 mg/dL)
[2020-05-13 13:44] LABS: CALCIUM 8.2 mg/dL (8.5-10.1); CREATININE 2.8 mg/dL (0.7-1.3); GFR 30.4; POTASSIUM 5.1 mmol/L (3.5-5.1)
[2020-05-13] MEDS ORDERED: IV NORMAL SALINE 1000ML BAG 1,000 ML IV ONE (13:45)
[2020-05-13 13:49] LABS: BACTERIA,URINE 0 /HPF (0-FEW)
[2020-05-13 13:53] LABS: BARBITURATES NEG (NEG); BENZODIAZEPINES NEG (NEG); CANNABINOIDS POS (NEG); COCAINE NEG (NEG); METHADONE NEG (NEG); OPIATES NEG (NEG); PHENCYCLIDINE NEG (NEG)
[2020-05-13 13:54] LABS: AMPHETAMINE/METHAMPHETAMINE NEG (NEG)
[2020-05-13 13:54] LABS: ALBUMIN 2.4 g/dL (3.4-5.0); ALBUMIN/GLOBULIN RATIO 0.5 (1.0-1.7); TOTAL BILIRUBIN 0.4 mg/dL (0.2-1.0); TOTAL PROTEIN 7.3 g/dL (6.4-8.2)
--- NOTE | 2020-05-13 13:55 | RAD ---
XR ABDOMEN COMP ACUTE History: Reason: abd pain, NAUSEA, VOMITING / Spl. Instructions: / History: Comparison: Abdomen radiograph 05/01/2020. CT abdomen pelvis 05/01/2020., Acute abdominal series 019. Technique: Upright AP chest. Supine and upright radiographs of the abdomen. Findings: Irregular calcification projects at the level of the right diaphragm, correlates to metallic foreign body right posterior soft tissues on CT. Lungs are mildly hypoinflated. No airspace consolidation, pleural effusion or pneumothorax. Osseous s tructures are unremarkable. No subdiaphragmatic free air. No differential air-fluid levels. Nonspecific bowel gas pattern with mu ltiple gaseous bowel loops throughout the abdomen. Gas and stool throughout the colon to the rectum. However quadrant cholecystectomy clips. Calcified pelvic vessels. Impression: 1. No acute cardiopulmonary findings. No abdominal free air. 2. Nonspecific bowel gas pattern with multiple gaseous distended bowel loops throughout the abdomen, but without differential air-fluid levels. Electronically signed by: Mitchel Troncoso MD (05/13/2020 1:53 PM) [facility]
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
[2020-05-13] MEDS ORDERED: DICY20TA3 PO (15:12)
[2020-05-13] MEDS ORDERED: ONDA4TAB12 PO (15:12)
== END 2020-05-13 15:51 | disposition home or self-care (01) ==
LOC: ER 12:06
DX: G89.29 Other chronic pain (principal); R10.13 Epigastric pain; R11.2 Nausea with vomiting, unspecified; I10 Essential (primary) hypertension; E11.9 Type 2 diabetes mellitus without complications; K21.9 Gastro-esophageal reflux disease without esophagitis; F17.200 Nicotine dependence, unspecified, uncomplicated; Z90.49 Acquired absence of other specified parts of digestive tract; Z88.0 Allergy status to penicillin; Z88.8 Allergy status to other drugs, medicaments and biological substances; Z79.899 Other long term (current) drug therapy
CPT/HCPCS: 36415; 74022; 80053; 80307; 81001; 83690; 85025; 96361; 96374; 96375; 99285; G0480; J1630; J3490; J7030

== ENCOUNTER 2020-07-04 10:07 | Emergency (ER) | payer MEDICARE ==
[~2020-07-04] VITALS: Ht 188 cm; Wt 109.1 kg
[2020-07-04] MEDS ORDERED: FAMOTIDINE 20 MG/2 ML VIAL IVP ONE (11:00)
[2020-07-04] MEDS ORDERED: ONDANSETRON PF 4 MG/2 ML VIAL. IVP ONE (11:00)
[2020-07-04] MEDS ORDERED: HYOSCYAMINE 0.125 MG TAB.RAPDIS PO ONE (11:00)
[2020-07-04] MEDS ORDERED: IV NORMAL SALINE 1000ML BAG 1,000 ML IV SCH (11:00)
[2020-07-04 11:05] LABS: BILIRUBIN,URINE NEGATIVE (NEG); CLARITY,URINE CLEAR; COLOR,URINE YELLOW; NITRITE,URINE NEGATIVE (NEG); PH,URINE 5.5 (<5.0-8.0); PROTEIN,URINE >=300 mg/dL (NEG-TRACE); UROBILINOGEN,URINE 0.2 mg/dL (0.2 mg/dL)
[2020-07-04 11:14] LABS: BASO # 0.1 x10^3/uL (0.0-0.2); BASO % 1 % (0-3); EOS # 0.2 x10^3/uL (0.0-0.7); EOS % 2 % (0-3); HEMATOCRIT 33.4 % (39.0-53.0); HEMOGLOBIN 11.5 g/dL (13.0-17.5); LYMPH # 1.9 x10^3/uL (1.0-4.8); LYMPH % 23 % (24-48); MEAN CORPUSCULAR HEMOGLOBIN 33 pg (25-35); MEAN CORPUSCULAR HGB CONC 34 g/dL (31-37); MEAN CORPUSCULAR VOLUME 96 fL (79-100); MONO # 0.5 x10^3/uL (0.0-1.1); MONO % 5 % (0-9); NEUT # 5.8 x10^3/uL (1.8-7.7); NEUT % 69 % (31-73); PLATELET COUNT 337 x10^3/uL (140-400); RED BLOOD COUNT 3.47 x10^6/uL (4.30-5.70); RED CELL DISTRIBUTION WIDTH 14.3 % (11.5-14.5); WHITE BLOOD COUNT 8.4 x10^3/uL (4.0-11.0)
[2020-07-04 11:29] LABS: BACTERIA,URINE FEW /HPF (0-FEW)
--- NOTE | 2020-07-04 13:01 | EKG ---
[facility] [address] [place] [address] Test Date: 2020-07-04 Test Time: 10:47:29 Pat Name: BYRON WOMACK Department: Room: Gender: M Tankerman: : 1980 Requested By: JUSTIN DUPREE Order Number: [id number] Reading MD: Measurements Intervals [place] Rate: 66 P: 38 [place]: 146 QRS: 1 QRSD: 88 T: 150 QT: 412 QTc: 434 Interpretive Statements SINUS RHYTHM LVH WITH REPOLARIZATION ABNORMALITY QRS(T) CONTOUR ABNORMALITY CONSIDER ANTEROLATERAL MYOCARDIAL DAMAGE ABNORMAL ECG RI6.01 No previous ECG available for comparison
[2020-07-04 13:41] LABS: CALCIUM 7.7 mg/dL (8.5-10.1); CREATININE 2.4 mg/dL (0.7-1.3); GFR 36.3; POTASSIUM 4.7 mmol/L (3.5-5.1)
[2020-07-04 13:47] LABS: ALBUMIN 2.1 g/dL (3.4-5.0); ALBUMIN/GLOBULIN RATIO 0.6 (1.0-1.7); MAGNESIUM 1.7 mg/dL (1.8-2.4); TOTAL BILIRUBIN 0.4 mg/dL (0.2-1.0); TOTAL PROTEIN 5.7 g/dL (6.4-8.2)
[2020-07-04 13:50] VITALS: BP 151/84
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
[2020-07-04] MEDS ORDERED: HYOS0.1265 SL (13:55)
[2020-07-04] MEDS ORDERED: PANT40TA77 PO (13:55)
[2020-07-04] MEDS ORDERED: ONDA4TAB12 PO (13:55)
== END 2020-07-04 14:00 | disposition home or self-care (01) ==
LOC: ER 10:07
DX: G89.29 Other chronic pain (principal); R10.9 Unspecified abdominal pain; R11.2 Nausea with vomiting, unspecified; Z76.0 Encounter for issue of repeat prescription; E11.9 Type 2 diabetes mellitus without complications; K21.9 Gastro-esophageal reflux disease without esophagitis; I10 Essential (primary) hypertension; F17.200 Nicotine dependence, unspecified, uncomplicated; Z90.49 Acquired absence of other specified parts of digestive tract; Z88.0 Allergy status to penicillin; Z88.8 Allergy status to other drugs, medicaments and biological substances
CPT/HCPCS: 36415; 80053; 81001; 82553; 83605; 83690; 83735; 84484; 85025; 87086; 93005; 96361; 96374; 96375; 99285; J2405; J3490; J7030

== ENCOUNTER 2020-07-29 07:00 | Emergency (ER) | payer MEDICARE ==
[~2020-07-29] VITALS: Ht 182.9 cm; Wt 106.8 kg
[2020-07-29] MEDS ORDERED: IV NORMAL SALINE 1000ML BAG 1,000 ML IV ONE (07:15)
[2020-07-29] MEDS ORDERED: ONDANSETRON PF 4 MG/2 ML VIAL. IVP ONE (07:45)
[2020-07-29] MEDS ORDERED: FAMOTIDINE 20 MG/2 ML VIAL IVP ONE (07:45)
[2020-07-29] MEDS ORDERED: fentaNYL PF VIAL 100 MCG/2 ML VIAL IV ONE (07:45)
[2020-07-29 07:48] LABS: BILIRUBIN,URINE NEGATIVE (NEG); CLARITY,URINE CLEAR; COLOR,URINE YELLOW; NITRITE,URINE NEGATIVE (NEG); PH,URINE 5.5 (<5.0-8.0); PROTEIN,URINE >=300 mg/dL (NEG-TRACE); UROBILINOGEN,URINE 0.2 mg/dL (0.2 mg/dL)
[2020-07-29 07:56] LABS: CALCIUM 8.5 mg/dL (8.5-10.1); CREATININE 2.7 mg/dL (0.7-1.3); GFR 31.5; POTASSIUM 4.9 mmol/L (3.5-5.1)
[2020-07-29 08:02] LABS: ALBUMIN 2.4 g/dL (3.4-5.0); ALBUMIN/GLOBULIN RATIO 0.6 (1.0-1.7); MAGNESIUM 1.8 mg/dL (1.8-2.4); TOTAL BILIRUBIN 0.5 mg/dL (0.2-1.0); TOTAL PROTEIN 6.5 g/dL (6.4-8.2)
[2020-07-29 08:03] LABS: BACTERIA,URINE 0 /HPF (0-FEW); RBC,URINE OCC /HPF (0-2); WBC,URINE OCC /HPF (0-4)
[2020-07-29 08:06] LABS: BASO # 0.1 x10^3/uL (0.0-0.2); BASO % 1 % (0-3); EOS # 0.1 x10^3/uL (0.0-0.7); EOS % 1 % (0-3); HEMATOCRIT 33.3 % (39.0-53.0); HEMOGLOBIN 11.5 g/dL (13.0-17.5); LYMPH # 1.5 x10^3/uL (1.0-4.8); LYMPH % 18 % (24-48); MEAN CORPUSCULAR HEMOGLOBIN 33 pg (25-35); MEAN CORPUSCULAR HGB CONC 35 g/dL (31-37); MEAN CORPUSCULAR VOLUME 97 fL (79-100); MONO # 0.4 x10^3/uL (0.0-1.1); MONO % 5 % (0-9); NEUT # 6.4 x10^3/uL (1.8-7.7); NEUT % 75 % (31-73); PLATELET COUNT 348 x10^3/uL (140-400); RED BLOOD COUNT 3.45 x10^6/uL (4.30-5.70); RED CELL DISTRIBUTION WIDTH 14.2 % (11.5-14.5); WHITE BLOOD COUNT 8.6 x10^3/uL (4.0-11.0)
--- NOTE | 2020-07-29 08:13 | RAD ---
INDICATION: Reason: right flank pain/abdominal pain eval for kidney stone / Spl. Instructions: / His tory: . COMPARISON: May 01, 2020 TECHNIQUE: Axial CT images obtained through the abdomen and pelvis without contrast. One or more of the following individualized dose reduction techniques were utilized for this examinat ion: 1. Automated exposure control; 2. Adjustment of the mA and/or kV according to patient size; 3 . Use of iterative reconstruction technique. FINDINGS: Scattered calcific atherosclerosis. Diffuse edema of soft tissues. No intrahepatic bile duct dilation. Limited assessment of pancreas without contrast. Spleen is unremarkable. Urinary bladder is largely decompressed with prominence of wall. No hydronephrosis. No dilated loops of bowel to suggest obstruction. The appendix does not appear inflamed. Degenerative changes of the spine. Degenerative changes of the right greater than left hip which is more than typically seen for the pat ient's age. IMPRESSION: * No evidence of bowel obstruction, hydronephrosis or appendicitis. * Urinary bladder is not distended but there is some prominence of the wall. Could be from lack of d istention unless the patient has symptoms of cystitis. Electronically signed by: Miguel Painter MD (07/29/2020 8:11 AM) [id number]
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
[2020-07-29] MEDS ORDERED: PANT40TA77 PO (08:29)
[2020-07-29] MEDS ORDERED: HYOS0.1265 SL (08:29)
[2020-07-29] MEDS ORDERED: ONDA4TAB12 PO (08:29)
[2020-07-29 08:30] VITALS: BP 151/75
== END 2020-07-29 08:38 | disposition home or self-care (01) ==
LOC: ER 07:00
DX: R10.9 Unspecified abdominal pain (principal); R11.2 Nausea with vomiting, unspecified; G89.29 Other chronic pain; I12.9 Hypertensive chronic kidney disease with stage 1 through stage 4 chronic kidney disease, or unspecified chronic kidney disease; E11.22 Type 2 diabetes mellitus with diabetic chronic kidney disease; N18.9 Chronic kidney disease, unspecified; K21.9 Gastro-esophageal reflux disease without esophagitis; F17.200 Nicotine dependence, unspecified, uncomplicated; Z90.49 Acquired absence of other specified parts of digestive tract; Z88.0 Allergy status to penicillin; Z88.8 Allergy status to other drugs, medicaments and biological substances
CPT/HCPCS: 36415; 74176; 80053; 81001; 83605; 83690; 83735; 85025; 96361; 96374; 96375; 99284; J2405; J3010; J3490; J7030

== ENCOUNTER 2020-08-29 10:08 | Emergency (ER) | payer MEDICARE ==
[~2020-08-29] VITALS: Ht 188 cm; Wt 92.6 kg
[2020-08-29] MEDS ORDERED: LISINOPRIL 10 MG TABLET PO ONE (11:00)
[2020-08-29] MEDS ORDERED: LIDO:MAALOX 1:1 20 ML SINGLE DOSE. SWSW ONE (11:00)
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
[2020-08-29] MEDS ORDERED: hydrALAZINE 20 MG/ML VIAL. IVP ONE ×2 (12:30→13:45)
[2020-08-29] MEDS ORDERED: fentaNYL PF VIAL 100 MCG/2 ML VIAL IV ONE (12:30)
[2020-08-29 13:01] LABS: CALCIUM 8.2 mg/dL (8.5-10.1); CREATININE 2.7 mg/dL (0.7-1.3); GFR 31.5; POTASSIUM 4.7 mmol/L (3.5-5.1)
[2020-08-29 13:07] LABS: ALBUMIN 2.2 g/dL (3.4-5.0); ALBUMIN/GLOBULIN RATIO 0.6 (1.0-1.7); TOTAL BILIRUBIN 0.3 mg/dL (0.2-1.0); TOTAL PROTEIN 6.2 g/dL (6.4-8.2)
[2020-08-29] MEDS ORDERED: HYDR-2867 PO (13:40)
[2020-08-29] MEDS ORDERED: PANT40TA77 PO (13:40)
[2020-08-29 13:41] LABS: BASO # 0.1 x10^3/uL (0.0-0.2); BASO % 1 % (0-3); EOS # 0.2 x10^3/uL (0.0-0.7); EOS % 2 % (0-3); HEMATOCRIT 32.6 % (39.0-53.0); HEMOGLOBIN 10.9 g/dL (13.0-17.5); LYMPH # 2.1 x10^3/uL (1.0-4.8); LYMPH % 22 % (24-48); MEAN CORPUSCULAR HEMOGLOBIN 33 pg (25-35); MEAN CORPUSCULAR HGB CONC 34 g/dL (31-37); MEAN CORPUSCULAR VOLUME 100 fL (79-100); MONO # 0.8 x10^3/uL (0.0-1.1); MONO % 8 % (0-9); NEUT # 6.6 x10^3/uL (1.8-7.7); NEUT % 68 % (31-73); PLATELET COUNT 294 x10^3/uL (140-400); RED BLOOD COUNT 3.27 x10^6/uL (4.30-5.70); RED CELL DISTRIBUTION WIDTH 14.6 % (11.5-14.5); WHITE BLOOD COUNT 9.8 x10^3/uL (4.0-11.0)
[2020-08-29] MEDS ORDERED: IV NORMAL SALINE 1000ML BAG 1,000 ML IV ONE (13:45)
[2020-08-29 14:10] VITALS: BP 214/96
== END 2020-08-29 14:10 | disposition home or self-care (01) ==
LOC: ER 10:08
DX: R10.13 Epigastric pain (principal); E11.9 Type 2 diabetes mellitus without complications; K21.9 Gastro-esophageal reflux disease without esophagitis; G89.29 Other chronic pain; F17.200 Nicotine dependence, unspecified, uncomplicated; I12.9 Hypertensive chronic kidney disease with stage 1 through stage 4 chronic kidney disease, or unspecified chronic kidney disease; E11.22 Type 2 diabetes mellitus with diabetic chronic kidney disease; N18.9 Chronic kidney disease, unspecified; Z90.49 Acquired absence of other specified parts of digestive tract; Z87.442 Personal history of urinary calculi; Z88.0 Allergy status to penicillin; Z88.8 Allergy status to other drugs, medicaments and biological substances
CPT/HCPCS: 36415; 80053; 83690; 83735; 85025; 96374; 96375; 96376; 99284; J0360; J3010

== ENCOUNTER 2020-10-23 10:07 | Emergency (ER) | payer MEDICARE ==
[~2020-10-23] VITALS: Ht 185.4 cm; Wt 109.0 kg
[~2020-10-23 10:07] MED LIST changes: -CLIN150C15 PO; +CLIN150C16 PO; +HYDR-2867 PO
[2020-10-23 10:45] VITALS: BP 146/70
[2020-10-23] MEDS ORDERED: cloNIDine HCL 0.1 MG TABLET PO ONE (10:45)
[2020-10-23] MEDS ORDERED: PANTOPRAZOLE 40 MG TABLET.DR. PO ONE (10:45)
[2020-10-23] MEDS ORDERED: ONDANSETRON ODT 4 MG TAB.RAPDIS. PO ONE (10:45)
[2020-10-23] MEDS ORDERED: PANT40TA77 PO (10:54)
[2020-10-23] MEDS ORDERED: LISI20TA18 PO (10:54)
[2020-10-23] MEDS ORDERED: ONDA4TAB12 PO (10:54)
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
== END 2020-10-23 11:07 | disposition home or self-care (01) ==
LOC: ER 10:07
DX: G89.29 Other chronic pain (principal); R10.32 Left lower quadrant pain; R11.2 Nausea with vomiting, unspecified; Z76.0 Encounter for issue of repeat prescription; E11.9 Type 2 diabetes mellitus without complications; K21.9 Gastro-esophageal reflux disease without esophagitis; I10 Essential (primary) hypertension; F17.200 Nicotine dependence, unspecified, uncomplicated; Z90.49 Acquired absence of other specified parts of digestive tract; Z87.11 Personal history of peptic ulcer disease; Z87.442 Personal history of urinary calculi; Z88.0 Allergy status to penicillin; Z88.6 Allergy status to analgesic agent
CPT/HCPCS: 99283